=== PATIENT | male | born 1980 | race Caucasian/White ===

== ENCOUNTER 2016-11-08 14:54 | Inpatient (IN) | payer OTHER ==
[2016-11-08] MEDS ORDERED: MORPHINE SULFATE 8 MG/ML INJ ONE (15:03)
[2016-11-08] MEDS ORDERED: ONDANSETRON HCL 4 MG/2 ML VIAL ONE (15:03)
[2016-11-08 15:05] VITALS: O2SAT 100
--- NOTE | 2016-11-08 15:11 | PD ---
HPI Chief Complaint: fall Time Seen by Provider: 15:04 Travel History International Travel<30 days: No Contact w/Intl Traveler<30days: No History of Present Illness HPI This is a patient in his 30s who presents to the emergency department having fallen off of a ladder about 5 or 6 feet tall, landing on his buttock area also hitting his head, reporting severe pain in the low back, constant, moderate severity, with associated weakness and numbness in his right lower extremity. He is unable to move his right leg. Pt. also reportedly had a seizure en route with paramedics that was generalized tonic-clonic and lasted for half a minute and subsided without any intervention. He was post-ictal for about 3 minutes and then improved. Pt. does acknowledge some pain in his lower abdomen as well. PFSH Past Medical History Narrative Medical otherwise healthy had one seizure over 11 years ago, not on any seizure medications takes a medication for diet Social History Alcohol Use: No Tobacco Use: No Substance Use: No Allergies-Medications (Allergen,Severity, Reaction): Coded Allergies: No Known Allergies (Unverified , 11/08/16) Review of Systems Except as stated in HPI: all other systems reviewed are Neg Physical Exam Narrative GENERAL: SKIN: Warm and dry. HEAD: Atraumatic. Normocephalic. EYES: Pupils equal and round. No scleral icterus. No injection or drainage. ENT: No nasal bleeding or discharge. Mucous membranes pink and moist. NECK: Cervical spine is immobilized. CARDIOVASCULAR: Tachycardic. 2+ bilateral d.p. pulses. RESPIRATORY: No accessory muscle use. Clear to auscultation. Breath sounds equal bilaterally. GASTROINTESTINAL: Abdomen soft, tender to palpation in the lower abdomen with no rebound/guarding. MUSCULOSKELETAL: No obvious deformities. NEUROLOGICAL: Awake and alert. No obvious cranial nerve deficits. Complete weakness in the right lower extremity with poor sensation to light touch starting at the groin down. PSYCHIATRIC: Appropriate mood and affect; insight and judgment normal. Data Data Last Documented VS Vital Signs Date Time Temp Pulse Resp B/P (MAP) Pulse Ox O2 Delivery O2 Flow Rate FiO2 11/08/16 15:05 100 21 Orders Orders Morphine Inj (Morphine Inj) (11/08/16 15:03) Ondansetron Inj (Zofran Inj) (11/08/16 15:03) I-Stat Profile (11/08/16 15:04) I-Stat Creatinine (11/08/16 15:04) Complete Blood Count With Diff (11/08/16 15:04) Prothrombin Time / Inr (Pt) (11/08/16 15:04) Act Partial Throm Time (Ptt) (11/08/16 15:04) Type And Screen (11/08/16 15:04) Alcohol (Ethanol) (11/08/16 15:04) Chest, Single Ap (11/08/16 15:04) Pelvis, Ap Only (Routine) (11/08/16 15:04) Ct Brain W/O Iv Contrast(Rout) (11/08/16 15:04) Ct Cerv Spine W/O Contrast (11/08/16 15:04) Ct Abd/Pel W Iv Contrast(Rout) (11/08/16 15:04) Ct Thorax/ Chest W Iv Contrast (11/08/16 15:04) Ct Thor Spine W/O Contrast (11/08/16 15:04) Ct Lumb Spine W/O Contrast (11/08/16 15:04) Iv Access Insert/Monitor (11/08/16 15:04) Ecg Monitoring (11/08/16 15:04) Oximetry (11/08/16 15:04) Oxygen Administration (11/08/16 15:04) Admit To Inpatient (11/08/16 ) Code Status (11/08/16 15:29) Vital Signs (Adult) Q4H (11/08/16 15:29) Activity Bed Rest (11/08/16 15:29) Intake + Output GEOVANNA.QSHIFT (11/08/16 15:29) Inpatient Certification (11/08/16 ) Levetiracetam Inj (Keppra Inj) (11/08/16 21:00) Enoxaparin Inj (Lovenox Inj) (11/08/16 16:00) Consult Orthopedic (11/08/16 ) Consult Neurology (11/08/16 ) (Hub Use Only)In Phy Cons/Ref (11/08/16 ) Admit Order (Ed Use Only) (11/08/16 15:40) (Hub Use Only)In Phy Cons/Ref (11/08/16 ) Labs Laboratory Tests Test 11/08/16 14:55 White Blood Count 8.0 TH/MM3 Red Blood Count 4.68 MIL/MM3 Hemoglobin 13.5 GM/DL Bedside Hemoglobin 13.6 G/DL Hematocrit 40.1 % Bedside Hematocrit 40.0 % Mean Corpuscular Volume 85.6 FL Mean Corpuscular Hemoglobin 28.8 PG Mean Corpuscular Hemoglobin Concent 33.7 % Red Cell Distribution Width 12.9 % Platelet Count 334 TH/MM3 Mean Platelet Volume 8.3 FL Neutrophils (%) (Auto) 72.4 % Lymphocytes (%) (Auto) 21.3 % Monocytes (%) (Auto) 5.4 % Eosinophils (%) (Auto) 0.2 % Basophils (%) (Auto) 0.7 % Neutrophils # (Auto) 5.8 TH/MM3 Lymphocytes # (Auto) 1.7 TH/MM3 Monocytes # (Auto) 0.4 TH/MM3 Eosinophils # (Auto) 0.0 TH/MM3 Basophils # (Auto) 0.1 TH/MM3 CBC Comment DIFF FINAL Differential Comment Prothrombin Time 12.3 SEC Prothromb Time International Ratio 1.1 RATIO Activated Partial Thromboplast Time 25.4 SEC Bedside Sodium 140 MMOL/L Bedside Potassium 4.4 MMOL/L Bedside Chloride 102 MMOL/L Bedside Blood Urea Nitrogen 11 MG/DL Bedside Creatinine 0.9 MG/DL Bedside Glucose 110 MG/DL Ethyl Alcohol Level LESS THAN 3 MG/DL [facility] Medical Screen Exam Complete: Yes Emergency Medical Condition: Yes Interpretation(s) mild tachycardia, normotensive no leukocytosis electrolytes reassuring Last 24 hours Impressions Thoracic Spine CT 11/08/16 1504 Signed Impressions: Service Date/Time: Tuesday, November 08, 2016 15:11 - CONCLUSION: 1. Minimal degenerative changes in the mid and lower dorsal spine with small marginal spurs. 2. No fracture. Spinal canal is patent throughout. 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 No fracture is identified. Omid Kincaid MD Lumbar Spine CT 11/08/16 1504 Signed Impressions: Service Date/Time: Tuesday, November 08, 2016 15:11 - CONCLUSION: No acute lumbar spine abnormality is identified. Omid Kincaid MD Head CT 11/08/16 1504 Signed Impressions: Service Date/Time: Tuesday, November 08, 2016 15:03 - CONCLUSION: Negative for acute traumatic injury. Tyrel Mcelroy MD FACR Chest X-Ray 11/08/16 1504 Signed Impressions: Service Date/Time: Tuesday, November 08, 2016 14:47 - CONCLUSION: No acute finding is identified. Omid Kincaid MD Chest CT 11/08/16 1504 Signed Impressions: Service Date/Time: Tuesday, November 08, 2016 15:11 - CONCLUSION: Negative for acute traumatic injury.. Tyrel Mcelroy MD FACR Cervical Spine CT 11/08/16 1504 Signed Impressions: Service Date/Time: Tuesday, November 08, 2016 15:03 - CONCLUSION: No acute cervical spine abnormality is identified. 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 Correlation suggested Negative for acute traumatic injury. Tyrel Mcelroy MD FACR Differential Diagnosis Thoracic vertebral fracture, lumbar vertebral fracture, intracranial hemorrhage , cervical spine fracture Narrative Course This is a patient who was brought in as a trauma alert who presents with paralysis of his right lower extremity following falling off a ladder. He has a normal vascular exam. He reportedly also had a seizure in route. Patient was placed on a monitor and an IV was established. He is found to be slightly tachycardic. He had pubic symphysis diastases on the pelvic x-ray and a pelvic binder was placed. Patient was transported to CT scan. All CT imaging was reassuring. Patient will be admitted in the setting of his seizure and his continued neurologic deficit. Trauma Alert - Level One Trauma Alert Level One: Full trauma team activate, Patient evaluated, Trauma surgeon summoned Time Surgeon Summoned: 14:30 (Surgeon asked to come in) Diagnosis Diagnosis: Primary Impression: Weakness Admitting Physician Requests: Admit Janet Jack MD Nov 08, 2016 15:11
[2016-11-08 15:13] LABS: I-STAT POTASSIUM 4.4 MMOL/L (3.5-4.9); I-STAT SODIUM 140 MMOL/L (138-146)
[2016-11-08 15:15] LABS: AUTOMATED NEUTROPHIL # 5.8 TH/MM3 (1.8-7.7); BASOPHIL # 0.1 TH/MM3 (0-0.2); BASOPHIL % 0.7 % (0.0-2.0); EOSINOPHIL % 0.2 % (0.0-4.0); HEMATOCRIT 40.1 % (39.0-51.0); HEMO FLAGS DIFF FINAL; LYMPH % 21.3 % (9.0-44.0); LYMPHOCYTE # 1.7 TH/MM3 (1.0-4.8); MEAN CELL VOLUME 85.6 FL (80.0-100.0); MEAN CORPUSCULAR HEMOGLOBIN 28.8 PG (27.0-34.0); MEAN CORPUSCULAR HGB CONC 33.7 % (32.0-36.0); MONO % 5.4 % (0.0-8.0); NEUT % 72.4 % (16.0-70.0); PLATELET COUNT 334 TH/MM3 (150-450); RED BLOOD COUNT 4.68 MIL/MM3 (4.50-5.90); RED CELL DISTRIBUTION WIDTH 12.9 % (11.6-17.2)
--- NOTE | 2016-11-08 15:22 | RADRPT ---
EXAM DATE/TIME: 11/08/2016 14:47 [facility] COMPARISON: No previous studies available for comparison. INDICATIONS : Trauma alert, fell from ladder, numbness in right lower extremity, unable to move right lower extremi ty, seizure MEDICAL HISTORY : None. SURGICAL HISTORY : device in right pelvis ENCOUNTER: Initial ACUITY: 1 day PAIN SCORE: 6/10 LOCATION: Bilateral pelvis FINDINGS: Single AP view the pelvis performed on trauma backboard demonstrates abnormal widening of the pubic s ymphysis with pubic bones by 2.5 cm. Sacroiliac joints demonstrate no acute finding. A righ t-sided implant similar devices present with lead tip overlying the left sacrum. No concerning radiop aque foreign body is seen. 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 No fracture is identified. Omid Kincaid MD on November 08, 2016 at 15:19 Board Certified Radiologist. This report was verified electronically.
--- NOTE | 2016-11-08 15:23 | RADRPT ---
EXAM DATE/TIME: 11/08/2016 14:47 [facility] COMPARISON: No previous studies available for comparison. INDICATIONS : Fell from ladder, numbness in right lower extremity, seizure, trauma alert MEDICAL HISTORY : None. SURGICAL HISTORY : device in pelvis ENCOUNTER: Initial ACUITY: 1 day PAIN SCORE: 0/10 LOCATION: Bilateral chest FINDINGS: Portable AP view of the chest performed on a trauma backboard demonstrates a normal-sized cardiac davina houette. No effusion, consolidation, or pneumothorax is visualized. The bones and soft tissues demons trate no acute abnormality. CONCLUSION: No acute finding is identified. Omid Kincaid MD on November 08, 2016 at 15:20 Board Certified Radiologist. This report was verified electronically.
--- NOTE | 2016-11-08 15:23 | RADRPT ---
EXAM DATE/TIME: 11/08/2016 15:03 [facility] COMPARISON: No previous studies available for comparison. INDICATIONS : Trauma fell from ladder. RADIATION DOSE: 69.50 CTDIvol (mGy) MEDICAL HISTORY : None SURGICAL HISTORY : None. ENCOUNTER: Initial ACUITY: 1 day PAIN SCALE: 8/10 LOCATION: cranial TECHNIQUE: Multiple contiguous axial images were obtained of the head. Using automated exposure control and adj ustment of the mA and/or kV according to patient size, radiation dose was kept as low as reasonably a chievable to obtain optimal diagnostic quality images. DICOM format image data is available electro nically for review and comparison. FINDINGS: CEREBRUM: The ventricles are normal for age. No evidence of midline shift, mass lesion, hemorrhage or acute in farction. No extra-axial fluid collections are seen. POSTERIOR FOSSA: The cerebellum and brainstem are intact. The 4th ventricle is midline. The cerebellopontine angle i s unremarkable. EXTRACRANIAL: The visualized portion of the orbits is intact. SKULL: The calvaria is intact. No evidence of skull fracture. CONCLUSION: Negative for acute traumatic injury. Tyrel Mcelroy MD FACR on November 08, 2016 at 15:21 Board Certified Radiologist. This report was verified electronically.
[2016-11-08 15:26] LABS: APTT (PATIENT) 25.4 SEC (24.3-30.1); INTERNATIONAL NORMALIZED RATIO 1.1 RATIO; PROTHROMBIN TIME - PATIENT 12.3 SEC (9.8-11.6)
--- NOTE | 2016-11-08 15:33 | RADRPT ---
EXAM DATE/TIME: 11/08/2016 15:03 [facility] COMPARISON: No previous studies available for comparison. INDICATIONS : Trauma fell from ladder RADIATION DOSE: 43.61 CTDIvol (mGy) MEDICAL HISTORY : None SURGICAL HISTORY : None. ENCOUNTER: Initial ACUITY: 1 day PAIN SCALE: 8/10 LOCATION: neck TECHNIQUE: Volumetric scanning of the cervical spine was performed. Multiplanar reconstructions in the sagittal, coronal and oblique axial planes were performed. Using automated exposure control and adjustment o f the mA and/or kV according to patient size, radiation dose was kept as low as reasonably achievable to obtain optimal diagnostic quality images. DICOM format image data is available electronically f or review and comparison. FINDINGS: There is normal sagittal spine alignment of the cervical spine. No anterolisthesis or retrolisthesis is present. The atlantoaxial relationship is within normal limits. There is no prevertebral soft tiss ue swelling present. No fracture or dislocation is identified. No disc herniation is visualized in th e upper cervical spine. The visualized portions of the posterior fossa, paraspinous soft tissues, and upper lung zones demons trate no acute abnormality. CONCLUSION: No acute cervical spine abnormality is identified. Omid Kincaid MD on November 08, 2016 at 15:27 Board Certified Radiologist. This report was verified electronically.
--- NOTE | 2016-11-08 15:40 | RADRPT ---
EXAM DATE/TIME: 11/08/2016 15:11 [facility] COMPARISON: No previous studies available for comparison. INDICATIONS : Trauma fell off ladder. IV CONTRAST: 96 cc Omnipaque 350 (iohexol) IV ; Cumulative dose for multiple exams. ORAL CONTRAST: No oral contrast ingested. RADIATION DOSE: 9.96 CTDIvol (mGy) ; Combined studies - Thorax/Abdomen/Pelvis MEDICAL HISTORY : Bladder trouble SURGICAL HISTORY : Bladder ENCOUNTER: Initial ACUITY: 1 day PAIN SCALE: 8/10 LOCATION: Abdomen TECHNIQUE: Volumetric scanning of the abdomen and pelvis was performed. Using automated exposure control and ad justment of the mA and/or kV according to patient size, radiation dose was kept as low as reasonably achievable to obtain optimal diagnostic quality images. DICOM format image data is available electro nically for review and comparison. FINDINGS: LOWER LUNGS: The visualized lower lungs are clear. LIVER: Homogeneous density without lesion. There is no dilation of the biliary tree. No calcified gallston es. SPLEEN: Normal size without lesion. PANCREAS: Within normal limits. ADRENAL GLANDS: Within normal limits. RIGHT KIDNEY: Normal in size and shape. There is no mass, stone, or hydronephrosis. LEFT KIDNEY: Normal in size and shape. There is no mass, stone, or hydronephrosis.. VASCULAR: There is no aortic aneurysm. BOWEL/MESENTERY: The stomach, small bowel, and colon demonstrate no acute abnormality. There is no free intraperitone al air or fluid. RETROPERITONEUM: There is no lymphadenopathy. PELVIC CONTENTS: Bladder, are unremarkable ABDOMINAL WALL: Within normal limits. INGUINAL: There is no lymphadenopathy or hernia. MUSCULOSKELETAL: Minimal diastases is present of the pubic symphysis the pelvic stimulator in place. No other fractur es are appreciated. 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 Correlation suggested Negative for acute traumatic injury. Tyrel Mcelroy MD FACR on November 08, 2016 at 15:37 Board Certified Radiologist. This report was verified electronically.
[2016-11-08 15:48] LABS: ALCOHOL LESS THAN 3 MG/DL (0-5)
--- NOTE | 2016-11-08 15:51 | RADRPT ---
EXAM DATE/TIME: 11/08/2016 15:11 [facility] COMPARISON: No previous studies available for comparison. INDICATIONS : Trauma alert. Fell off ladder IV CONTRAST: 96 cc Omnipaque 350 (iohexol) IV ; Cumulative dose for multiple exams. RADIATION DOSE: 9.96 CTDIvol (mGy) MEDICAL HISTORY : Bladder trouble SURGICAL HISTORY : Bladder surgery ENCOUNTER: Initial ACUITY: 1 day PAIN SCALE: 8/10 LOCATION: chest TECHNIQUE: Volumetric scanning of the chest was performed. Using automated exposure control and adjustment of t he mA and/or kV according to patient size, radiation dose was kept as low as reasonably achievable to obtain optimal diagnostic quality images. DICOM format image data is available electronically for review and comparison. Follow-up recommendations for detected pulmonary nodules are based at a minimum on nodule size and pa tient risk factors according to Fleischner Society Guidelines. FINDINGS: LUNGS: The lungs are clear. MEDIASTINUM: There is no axillary or mediastinal adenopathy appreciated. Great vessels are intact. There is no p ericardial effusion. MUSCULOSKELETAL: Within normal limits for patient age. MISCELLANEOUS: The visualized upper abdominal organs demonstrate no acute abnormality. CONCLUSION: Negative for acute traumatic injury.. Tyrel Mcelroy MD FACR on November 08, 2016 at 15:43 Board Certified Radiologist. This report was verified electronically. the lungs are clear.
--- NOTE | 2016-11-08 16:00 | RADRPT ---
EXAM DATE/TIME: 11/08/2016 15:11 [facility] COMPARISON: No previous studies available for comparison. INDICATIONS : Trauma alert, fall from ladder today. RADIATION DOSE: ; Reconstructed from previous dataset, no dose MEDICAL HISTORY : Non-responsive. SURGICAL HISTORY : Non-responsive. ENCOUNTER: Initial ACUITY: 1 day PAIN SCALE: Non-responsive LOCATION: Bilateral lower back TECHNIQUE: Volumetric scanning of the lumbar spine was performed. Multiplanar reconstructions in the sagittal, coronal and oblique axial planes were performed. Using automated exposure control and adjustment of the mA and/or kV according to patient size, radiation dose was kept as low as reasonably achievable t o obtain optimal diagnostic quality images. DICOM format image data is available electronically for review and comparison. FINDINGS: VERTEBRAE: Normal vertebral body height. No fracture is identified. ALIGNMENT: There is no anterolisthesis or retrolisthesis. T12-L1: No disc herniation, canal stenosis, or neural foraminal stenosis. L1-L2: No disc herniation, canal stenosis, or neural foraminal stenosis. L2-L3: No disc herniation, canal stenosis, or neural foraminal stenosis. L3-L4: No disc herniation, canal stenosis, or neural foraminal stenosis. L4-L5: No disc herniation, canal stenosis, or neural foraminal stenosis. L5-S1: No disc herniation, canal stenosis, or neural foraminal stenosis. CONCLUSION: No acute lumbar spine abnormality is identified. Omid Kincaid MD on November 08, 2016 at 15:54 Board Certified Radiologist. This report was verified electronically.
[2016-11-08] MEDS ORDERED: IOHEXOL 350 MG/ML 10 ML VIAL (for RAD DIAG) IVCONTRAST ONE (16:01)
--- NOTE | 2016-11-08 16:14 | RADRPT ---
EXAM DATE/TIME: 11/08/2016 15:11 [facility] COMPARISON: No previous studies available for comparison. INDICATIONS : Trauma fell off ladder no feeling left leg. RADIATION DOSE: 0 CTDIvol (mGy) ; Reconstructed from previous dataset, no dose MEDICAL HISTORY : Bladder SURGICAL HISTORY : Bladder surgery ENCOUNTER: Initial ACUITY: 1 day PAIN SCALE: 8/10 LOCATION: t-spine TECHNIQUE: Volumetric scanning of the thoracic spine was performed. Multiplanar reconstructions in the sagittal , coronal and oblique axial planes were performed. Using automated exposure control and adjustment o f the mA and/or kV according to patient size, radiation dose was kept as low as reasonably achievable to obtain optimal diagnostic quality images. DICOM format image data is available electronically f or review and comparison. FINDINGS: Sagittal and coronal reconstructions show mild multilevel degenerative disc disease with small margin al spurs in the mid and lower dorsal levels. Vertebral body heights are maintained without fracture o r listhesis. Very mild wedge configuration of T12 is chronic. Spinal canal is widely patent. Detailed axial images as follows: T1-T2: Normal. T2-T3: The thecal sac has a normal diameter. No evidence of disc bulge or protrusion. T3-T4: The thecal sac has a normal diameter. No evidence of disc bulge or protrusion. T4-T5: The thecal sac has a normal diameter. No evidence of disc bulge or protrusion. T5-T6: The thecal sac has a normal diameter. No evidence of disc bulge or protrusion. T6-T7: The thecal sac has a normal diameter. No evidence of disc bulge or protrusion. T7-T8: The thecal sac has a normal diameter. No evidence of disc bulge or protrusion. T8-T9: The thecal sac has a normal diameter. No evidence of disc bulge or protrusion. T9-T10: The thecal sac has a normal diameter. No evidence of disc bulge or protrusion. T10-T11: The thecal sac has a normal diameter. No evidence of disc bulge or protrusion. T11-T12: The thecal sac has a normal diameter. No evidence of disc bulge or protrusion. T12-L1: The thecal sac has a normal diameter. No evidence of disc bulge or protrusion. CONCLUSION: 1. Minimal degenerative changes in the mid and lower dorsal spine with small marginal spurs. 2. No fracture. Spinal canal is patent throughout. Jason Phillips MD on November 08, 2016 at 15:57 Board Certified Radiologist. This report was verified electronically.
--- NOTE | 2016-11-08 16:55 | MH ---
cc: MARY ALONSO MD DATE OF ADMISSION 11/08/[address] Alonso / trauma surgery ADMISSION DIAGNOSIS Fall from the height, difficulty moving right leg. HISTORY OF THE PRESENT ILLNESS This 34-year-old male was admitted through emergency apartment priority one trauma alert after falling off a ladder about 6 feet, landing on his buttock and smacking his head. The patient states that he has pain in the lower back and weakness of the right leg. He is unable to move his right leg. Apparently on the scene the patient had a tonic clonic seizure for about a minute. The patient was a very short time postictal. And now he is normal. He says he remembers the seizure. PAST MEDICAL HISTORY Is that of: 1. 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 2. One seizure about 10 years ago and never again. SOCIAL HISTORY Does not smoke, does not drink. 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 PHYSICAL EXAMINATION GENERAL: Reveals a 34-year-old male. HEENT: Normocephalic. No trauma to the head. Pupils equally reactive. Extraocular muscles intact. No hemotympanum. No Us sign or raccoon's eyes. NECK: Supple. Bilateral carotid pulses. No signs of trauma to the neck. The C-collar has been removed. CHEST: Bilateral breath sounds. No signs of trauma to the chest. CARDIOVASCULAR: Regular rhythm. Hemodynamically the patient is stable. ABDOMEN: Soft. Active bowel sounds. No rebound or guarding. No masses. PELVIS: The pelvis is stable. The patient has no signs of trauma to the pelvic rim. EXTREMITIES: The patient has bilateral femoral, popliteal, dorsalis pedis, posterior tibial pulses. Bilateral brachial, radial and ulnar pulses. He has no deformities in any of his extremities. BACK: The patient is log-rolled to the back. There are no signs of trauma to the back although the patient is tender over the lower back. NEUROLOGIC: Vanessa coma scale is 15. The patient is awake, alert, oriented. He remembers the seizure which is somewhat unusual. Normal activity in the upper extremities. Lower extremities the patient says he is unable to move his right leg, although he is moving the toes and the foot. Initially he stated there was no sensation the right leg, however when I questioned that more closely the patient says he can feel me touch him but somewhat less. I am not sure what to make out of this right now. The bilateral patellar reflexes are normal. No pathologic reflexes. IMPRESSION Patient with a fall on his buttocks states he cannot move his right leg. The patient has no discernible injuries on a CT scan. The patient will be admitted, observed, placed on Keppra. Neurology is consulted for the same. On the CT scan the patient stasis pubis but I do not see this being related to this accident in any anyway. Nonetheless, I will have orthopedics render their opinion. Mary MEDRANO /4:21 PM /4:36 PM
[2016-11-08 17:13] VITALS: BP 136/74; PULSE 93; RESP 18; O2SAT 97
[2016-11-08 17:14] VITALS: O2SAT 97
[2016-11-08] MEDS ORDERED: ACETAMINOPHEN 325 MG TAB PO PRN (17:45)
[2016-11-08] MEDS ORDERED: ONDANSETRON HCL 4 MG/2 ML VIAL IV PRN (17:45)
[2016-11-08] MEDS ORDERED: SODIUM CHLORIDE 0.9% FLUSH 10 ML FLUSH IV FLUSH PRN (17:45)
[2016-11-08] MEDS ORDERED: ENALAPRILAT 1.25 MG/ML VIAL IV PRN (17:45)
[2016-11-08] MEDS ORDERED: LACTULOSE SYRUP 20 GM/30 ML CUP PO PRN (17:45)
[2016-11-08] MEDS: DEXAMETHASONE SOD PHOS 4 MG/ML VIAL IV PUSH SCH (17:54)
[2016-11-08] MEDS: ENOXAPARIN SODIUM 40 MG/0.4 ML SYRINGE SQ SCH (17:54)
[2016-11-08] MEDS: ACETAMINOPHEN/HYDROcodone 325 MG/5 MG TAB PO PRN (18:03)
[2016-11-08 20:00] VITALS: BP 120/55; PULSE 69; RESP 18; TEMP 98.1; O2SAT 97
[2016-11-08] MEDS ORDERED: levETIRAcetam INJ 500 MG in SODIUM CHLORIDE 0.9% INJ 100 ML IV SCH (21:00)
[2016-11-08] MEDS: FAMOTIDINE 20 MG TAB PO SCH (21:04)
[2016-11-08] MEDS: DOCUSATE SODIUM 50 MG/SENNA 8.6 MG TAB PO SCH (21:04)
[2016-11-08] MEDS: levETIRAcetam 500 MG TAB PO SCH (21:04)
--- NOTE | 2016-11-08 22:26 | MB ---
cc: CHICHI BULL M.D. DATE OF CONSULTATION 11/08/16 REASON FOR CONSULTATION Seizure, right leg weakness. HISTORY OF PRESENT ILLNESS This is a patient who states he was at work on a ladder earlier today, fell backwards, striking the right side. He did strike his head as well. En route he had a generalized seizure in the ambulance. States he did have a seizure about 11 years ago but none since. He felt weak in his right leg and numbness but does report that it has been improving in strength. Denies weakness of the arms or left leg. He does have back pain. PAST MEDICAL HISTORY History of InterStim implant for neurogenic bladder of unknown cause. History of isolated seizure 10 or 11 years ago. History of head trauma in high school playing soccer. MEDICATIONS None presently. NEUROLOGIC EXAMINATION NEURO: Higher cortical functions are normal. Cranial nerves intact. Motor exam he has normal strength and tone of all groups in the upper extremities and the left leg. He is weak at the right iliopsoas 3/5, right quads 3/5, right hamstring 3/5, right 3/5, right gastrocnemius 3/5. Reflexes are 2+ symmetric. He has no Babinski sign present. Sensory exam is diminished in the right leg diffusely. IMAGING STUDIES CT of the brain is normal. CT cervical spine within normal limits. CT of the thoracic spine is also within normal limits. CT lumbar spine is normal as well. CT brain normal. LABORATORY DATA White count 8000, hemoglobin 13.5, hematocrit is 40%, platelet count 334,000. The PT 12.3, INR 1.1, APTT 25.4. Sodium is 140, potassium 4.4, chloride 102, BUN 11, creatinine 0.9, glucose 110. Tox screen, alcohol less 3. IMPRESSION 1. Underwent seizure, probably related to head trauma. 2. Right leg weakness. Suspect this might have been a lumbosacral plexus injury. There is no sign of any spinal cord pathology. RECOMMENDATIONS Will start the patient on low-dose steroids for the right leg weakness. He does seem to be improving at the present time. If he does not continue to improve consider myelogram, unable to MRI because of the bladder stimulator. Start the patient on Keppra for seizures. Also, obtain an EEG. MD MARCIAL Campbell /4:52 PM /10:14 PM
[2016-11-09] VITALS: BP 126/57; PULSE 67; RESP 18; TEMP 98; O2SAT 96
[2016-11-09] MEDS: DEXAMETHASONE SOD PHOS 4 MG/ML VIAL IV PUSH SCH ×4 (00:28→17:39)
[2016-11-09 04:00] VITALS: BP 119/64; PULSE 71; RESP 18; TEMP 97.6; O2SAT 99
[2016-11-09] MEDS: ENOXAPARIN SODIUM 40 MG/0.4 ML SYRINGE SQ SCH ×2 (05:18→15:32)
[2016-11-09] MEDS: ACETAMINOPHEN/HYDROcodone 325 MG/5 MG TAB PO PRN ×4 (05:25→19:47)
--- NOTE | 2016-11-09 06:51 | PD.ORT.PN ---
Subjective Subjective Remarks This patient had a fall off a ladder yesterday. He complains of right-sided hip , back, and leg pain. His pain is improving today. Objective Vitals Vital Signs Date Time Temp Pulse Resp B/P (MAP) Pulse Ox O2 Delivery O2 Flow Rate FiO2 11/09/16 00:00 98.0 67 18 126/57 (80) 96 11/08/16 20:00 98.1 69 18 120/55 (76) 97 11/08/16 19:16 11/08/16 17:14 97 Room Air 11/08/16 17:14 97 Room Air 11/08/16 17:13 93 18 136/74 (94) 97 Room Air 11/08/16 15:05 100 21 Result Diagram: 11/08/16 1455 Other Results Laboratory Tests Test 11/08/16 14:55 Prothromb Time International Ratio 1.1 RATIO Prothrombin Time 12.3 SEC (9.8-11.6) Imaging Last 24 hours Impressions Thoracic Spine CT 11/08/16 1504 Signed Impressions: Service Date/Time: Tuesday, November 08, 2016 15:11 - CONCLUSION: 1. Minimal degenerative changes in the mid and lower dorsal spine with small marginal spurs. 2. No fracture. Spinal canal is patent throughout. Jsaon Phillips MD Pelvis X-Ray 11/08/16 1504 Signed Impressions: Service Date/Time: Tuesday, November 08, 2016 14:47 - CONCLUSION: Diastases of the pubic symphysis with pubic bones by 2.5 cm. No fracture is identified. Omid Kincaid MD Lumbar Spine CT 11/08/16 1504 Signed Impressions: Service Date/Time: Tuesday, November 08, 2016 15:11 - CONCLUSION: No acute lumbar spine abnormality is identified. Omid Kincaid MD Head CT 11/08/16 1504 Signed Impressions: Service Date/Time: Tuesday, November 08, 2016 15:03 - CONCLUSION: Negative for acute traumatic injury. Tyrel Mcelroy MD FACR Chest X-Ray 11/08/16 1504 Signed Impressions: Service Date/Time: Tuesday, November 08, 2016 14:47 - CONCLUSION: No acute finding is identified. Omid Kincaid MD Chest CT 11/08/16 1504 Signed Impressions: Service Date/Time: Tuesday, November 08, 2016 15:11 - CONCLUSION: Negative for acute traumatic injury.. Tyrel Mcelroy MD FACR Cervical Spine CT 11/08/16 1504 Signed Impressions: Service Date/Time: Tuesday, November 08, 2016 15:03 - CONCLUSION: No acute cervical spine abnormality is identified. 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 Correlation suggested Negative for acute traumatic injury. Tyrel Mcelroy MD FACR Objective Remarks Examination of pelvis reveals tenderness to palpation over the pubic symphysis. He has minimal pain with hip, knee, or ankle motion. He is also tender over the gluteus muscles laterally. Assessment & Plan Assessment and Plan X-rays reveal approximately 23 mm of widening of the pubic symphysis. This may be treated nonoperatively. We'll have him work with physical therapy. He may weight-bear as tolerated. We'll check repeat x-rays after physical therapy. If the symphysis widens further, he will need surgery. Julio Cesar Olivares MD Nov 09, 2016 06:51
[2016-11-09 08:00] VITALS: BP 123/72; PULSE 60; RESP 16; TEMP 97.5; O2SAT 100
[2016-11-09 10:41] LABS: AUTOMATED NEUTROPHIL # 6.4 TH/MM3 (1.8-7.7); BASOPHIL % 0.1 % (0.0-2.0); HEMATOCRIT 41.2 % (39.0-51.0); HEMO FLAGS DIFF FINAL; LYMPH % 6.9 % (9.0-44.0); LYMPHOCYTE # 0.5 TH/MM3 (1.0-4.8); MEAN CELL VOLUME 86.7 FL (80.0-100.0); MEAN CORPUSCULAR HEMOGLOBIN 29.1 PG (27.0-34.0); MEAN CORPUSCULAR HGB CONC 33.6 % (32.0-36.0); PLATELET COUNT 284 TH/MM3 (150-450); RED BLOOD COUNT 4.76 MIL/MM3 (4.50-5.90); RED CELL DISTRIBUTION WIDTH 12.5 % (11.6-17.2)
--- NOTE | 2016-11-09 10:53 | HHI.PR ---
Subjective Subjective Notes Complains of pubic pain but does not like taking pain medication Objective Vitals/I&O Vital Signs Date Time Temp Pulse Resp B/P (MAP) Pulse Ox O2 Delivery O2 Flow Rate FiO2 11/09/16 08:00 97.5 60 16 123/72 (89) 100 11/08/16 17:14 Room Air 11/08/16 15:05 21 Labs Laboratory Tests Test 11/08/16 14:55 11/09/16 10:04 White Blood Count 8.0 Red Blood Count 4.68 Hemoglobin 13.5 Bedside Hemoglobin 13.6 Hematocrit 40.1 Bedside Hematocrit 40.0 Mean Corpuscular Volume 85.6 Mean Corpuscular Hemoglobin 28.8 Mean Corpuscular Hemoglobin Concent 33.7 Red Cell Distribution Width 12.9 Platelet Count 334 Mean Platelet Volume 8.3 Neutrophils (%) (Auto) 72.4 Lymphocytes (%) (Auto) 21.3 Monocytes (%) (Auto) 5.4 Eosinophils (%) (Auto) 0.2 Basophils (%) (Auto) 0.7 Neutrophils # (Auto) 5.8 Lymphocytes # (Auto) 1.7 Monocytes # (Auto) 0.4 Eosinophils # (Auto) 0.0 Basophils # (Auto) 0.1 CBC Comment DIFF FINAL Differential Comment Prothrombin Time 12.3 Prothromb Time International Ratio 1.1 Activated Partial Thromboplast Time 25.4 Bedside Sodium 140 Bedside Potassium 4.4 Bedside Chloride 102 Bedside Blood Urea Nitrogen 11 Bedside Creatinine 0.9 Bedside Glucose 110 Ethyl Alcohol Level LESS THAN 3 Radiology Last Impressions Thoracic Spine CT 11/08/16 1504 Signed Impressions: Service Date/Time: Tuesday, November 08, 2016 15:11 - CONCLUSION: 1. Minimal degenerative changes in the mid and lower dorsal spine with small marginal spurs. 2. No fracture. Spinal canal is patent throughout. 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 No fracture is identified. Omid Kincaid MD Lumbar Spine CT 11/08/16 1504 Signed Impressions: Service Date/Time: Tuesday, November 08, 2016 15:11 - CONCLUSION: No acute lumbar spine abnormality is identified. Omid Kincaid MD Head CT 11/08/16 1504 Signed Impressions: Service Date/Time: Tuesday, November 08, 2016 15:03 - CONCLUSION: Negative for acute traumatic injury. Tyrel Mcelroy MD FACR Chest X-Ray 11/08/16 1504 Signed Impressions: Service Date/Time: Tuesday, November 08, 2016 14:47 - CONCLUSION: No acute finding is identified. Omid Kincaid MD Chest CT 11/08/16 1504 Signed Impressions: Service Date/Time: Tuesday, November 08, 2016 15:11 - CONCLUSION: Negative for acute traumatic injury.. Tyrel Mcelroy MD FACR Cervical Spine CT 11/08/16 1504 Signed Impressions: Service Date/Time: Tuesday, November 08, 2016 15:03 - CONCLUSION: No acute cervical spine abnormality is identified. 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 Correlation suggested Negative for acute traumatic injury. Tyrel Mcelroy MD FACR Narrative Exam GENERAL:Adult well-nourished, well developed male sitting at the side of the bed. SKIN: Warm and dry. HEAD: Atraumatic. Normocephalic. ENT: No nasal bleeding or discharge. Mucous membranes pink and moist. NECK: Trachea midline. No JVD. CARDIOVASCULAR: Regular rate and rhythm. RESPIRATORY: No accessory muscle use. Lungs clear to auscultation. Breath sounds equal bilaterally. GASTROINTESTINAL: Abdomen soft, non-tender, nondistended. + BS. MUSCULOSKELETAL: Extremities without cyanosis, or edema. Pain with palpation over pubic bone. MAEW. NEUROLOGICAL: Awake and alert. Normal speech. A/P Assessment and Plan [place]: Fell approximately 5-6 ft off a ladder landing on his buttocks and striking his head. ? LOC. Unable to move his leg. Tonic-clonic seizure while en route to hospital. INJURIES: Diastases pubic symphysis Concussion Diet: Regular Pulm: IS Pain: Pearce, Tylenol Activity: OOB. PT and OT ordered (WBAT) GI: Pepcid Bowel: Carli-colace, Lactulose PRN. LBM 0 DVT: SCDs, Lovenox 40 BID Diastases pubic symphysis Orthopedics consulted Weightbearing as tolerated X-rays post OOB to assess for further pubic symphysis widening and possible need for surgical intervention Pain control PT evaluating Lovenox Concussion with seizure Neurologist consulted Seizure precautions EEG pending [facility] for seizure prophylaxis Neuro checks Avoid second head injury Postconcussive education Plan of care discussed with patient and at bedside. Case management consulted to assist with discharge planning. Plan to discharge in 1-2 days when patient ambulating safely. Remington Melton Nov 09, 2016 10:53
[2016-11-09 10:54] LABS: ALT (GPT) 18 U/L (12-78); ANION GAP 7 MEQ/L (5-15); AST (GOT) 6 U/L (15-37); BLOOD UREA NITROGEN 13 MG/DL (7-18); CHLORIDE 108 MEQ/L (98-107); GLOMERULAR FILTRATION RATE 88 ML/MIN (>89); POTASSIUM 3.8 MEQ/L (3.5-5.1); SODIUM (NA) 137 MEQ/L (136-145)
[2016-11-09 10:56] LABS: ALKALINE PHOSPHATASE 62 U/L (45-117); TOTAL BILIRUBIN ADULT 0.8 MG/DL (0.2-1.0)
[2016-11-09] MEDS: FAMOTIDINE 20 MG TAB PO SCH ×2 (11:21→19:47)
[2016-11-09] MEDS: levETIRAcetam 500 MG TAB PO SCH ×2 (11:21→19:47)
[2016-11-09] MEDS: DOCUSATE SODIUM 50 MG/SENNA 8.6 MG TAB PO SCH ×2 (11:23→19:47)
[2016-11-09 12:00] VITALS: BP 127/66; PULSE 80; RESP 20; TEMP 98.8; O2SAT 97
--- NOTE | 2016-11-09 12:32 | PD.HHIRCNE ---
Patient History Record/History Review Reason for Referral: The patient is a 28 year old right handed male status post traumatic injury due to a fall from a six foot ladder on 11/08/2016. Reportedly, the patient fell from the ladder landing on his buttocks, and was noted to have a seizure lasting one minute with post-ictal phenomena. Please note that he did have a prior seizure as a child. His GCS was [address] was reported as normal. He does report RLE weakness. Medical reports are concerned that he suffered a concussion from the fall, and hence he is referred for baseline neurobehavioral status examination per trauma protocol to assess cognitive, behavioral and emotional aspects of the injury and to provide treatment recommendations. Neuropsych Precautions: To be determined. Past Surgical/Medical History Major surgery in last 100 days: No Medication Active Medications Acetaminophen (Tylenol) 650 mg Q4H PRN PO; Start 11/08/16 at 17:45 Acetaminophen/ Hydrocodone Bitart ([place] 5-325 Mg) 1 tab Q4H PRN PO Last administered on 11/09/16 11:22; Admin Dose 1 TAB; Start 11/08/16 at 17:45 Dexamethasone Sodium Phosphate (Decadron Inj) 4 mg Q6HR IV PUSH Last administered on 11/09/16 11:23; Admin Dose 4 MG; Start 11/08/16 at 18:00 Enalaprilat (Vasotec Inj) 1.25 mg Q8H PRN IV; Start 11/08/16 at 17:45 Enoxaparin Sodium (Lovenox Inj) 40 mg Q12H SQ Last administered on 11/09/16 05: 18; Admin Dose 40 MG; Start 11/08/16 at 16:00 Famotidine (Pepcid) 20 mg Q12HR PO Last administered on 11/09/16 11:21; Admin Dose 20 MG; Start 11/08/16 at 21:00 Iohexol (Omnipaque 350 Inj) 96 ml STK-MED ONCE IVCONTRAST Last administered on 16:01; Admin Dose 96 ML; Start 11/08/16 at 16:01; Stop 11/08/16 at 16: 02; Status DC Lactulose (Lactulose Liq) 30 ml DAILY PRN PO; Start 11/08/16 at 17:45 Levetriacetam (Keppra) 500 mg Q12HR PO Last administered on 11/09/16 11:21; Admin Dose 500 MG; Start 11/08/16 at 21:00 Levetriacetam 500 mg/Sodium Chloride 105 ml @ 420 mls/hr Q12HR IV; Start at 21:00; Stop 11/08/16 at 21:00; Status DC Lorazepam (Ativan Inj) 1 mg Q4H PRN IV PUSH; Start 11/08/16 at 17:00 Morphine Sulfate (Morphine Inj) 8 mg STK-MED ONCE .ROUTE Last administered on 17:53; Admin Dose 8 MG; Start 11/08/16 at 15:03; Stop 11/08/16 at 15:04 ; Status DC Ondansetron HCl (Zofran Inj) 4 mg Q6H PRN IV; Start 11/08/16 at 17:45 Ondansetron HCl (Zofran Inj) 4 mg STK-MED ONCE .ROUTE; Start 11/08/16 at 15:03; Stop 11/08/16 at 15:04; Status DC Senna/Docusate Sodium (Carli-Colace) 1 tab BID PO Last administered on 11/09/16 11:23; Admin Dose 1 TAB; Start 11/08/16 at 21:00 Sodium Chloride (NS Flush) 2 ml UNSCH PRN IV FLUSH; Start 11/08/16 at 17:45 Mental Status Assessment Orientation: oriented to Self, oriented to Place, oriented to Time, oriented to Situation Mental Status: WFL: Thought processing, Language/Interactions, Attention, Learning/Memory, Problem-Solving Observation The patient is alert and oriented to person, place, time and circumstances surrounding the reason for hospitalization. To assist in the diagnosis and treatment of possible concussion, the Sports Concussion Assessment Tool-5 (SCAT5 ) was administered to the patient by this neuropsychologist. The following results were obtained.~ This patients Vanessa Coma Scale score at the time of todays evaluation is 15 (4E, 5V, 6M).~ Neuroimaging results were negative for intracranial abnormality.~ The patient endorsed 8 of 22 symptoms of concussion, with a symptom severity score of 18 of 132.~ The patient obtained an Orientation score of 5 out of 5.~ The patient obtained a Concentration score of 2 out of 4.~ The patient earned a score of 15 out of 15 on the Immediate Memory subtest of the SCAT5.~ The patients Neurological Screen was deferred given their medical condition.~ The patients Balance Examination was deferred given their medical condition.~ On Delayed Recall of the word list, the patient earned a score of 4 out of 5.~ Based on [facility] clinical evaluation which included the administration of the SCAT5, it is this clinicians judgment that this patient DID sustain a concussion related to their recent injury with clinical indicators including symptom report and concentration difficulties.~ However please note that the diagnosis of concussion is a clinical judgment, made by a medical professional.~ The assessment tool utilized in diagnosis, SCAT5, should not be used by itself to make or exclude, the diagnosis of concussion.~ A patient may have a concussion even if their SCAT5 is normal. Impression Mild concussion diagnosis. Adjustment/Coping Assessment Adjustment/Coping: None: Depression, Anxiety, Pain, Apathy, Awareness, Insight Observation The patients thought content was free from suicidal, homicidal or paranoid ideation, and the patients thought processes were logical and goal-directed. The patients mood was anxious, and his affect was stable and appropriate. LTG Status: Deferred STG Status: Deferred Team Members: Neuropsychologist Behavior Assessment Agitation: None Treatment Engagement: Average Observation Behaviorally, the patient demonstrated no signs of agitation, impulsivity or disinhibition. There was no remarkable evidence of a formal thought disorder or psychosis. LTG - Status: Deferred STG Status: Deferred Team Members: Neuropsychologist Diagnosis/Discharge Plan Impression Neurobehavioral status examination results are consistent with a mild concussion given symptom report and concentration difficulties. Diagnosis: (1) Concussion with brief (less than one hour) loss of consciousness Status: Acute Maximizing acute care outcome It is recommended that the patient be monitored for emergent concussion symptoms as the medical condition evolves. Discharge Planning Anticipated Problems Anticipated problems may include typical concussion sequelae and as such he may benefit from referral to concussion clinic offered by Dr. Jeramy Connor ). Treatment Plan Based on these results, your medical team recommends that the patient follow-up at the [facility] on discharge.~ For now, it is recommended that the patient limit physical activity to routine daily activities (avoid exercise , training, sports, etc.) and limit activities such as school, work and screen time to a level that does not worsen symptoms.~ It is also recommended that the patient avoid alcohol, prescription and non-prescription drugs without medical supervision (including sleeping tablets, aspirin, anti-inflammatory medications or stronger pain medications such as narcotics), and do not drive until cleared by a healthcare professional. Furthermore, if you notice any change in behavior , vomiting, worsening headache, double vision or excessive drowsiness, please telephone your doctor or the nearest hospital emergency department immediately. This clinician will continue to follow with you throughout the course of this patients rehabilitation treatment, and I will be available to meet with the patients family/support system to facilitate their understanding and the ongoing care of their family member. The goals of neuropsychological intervention shall be both educational and supportive to the family/support system as is deemed clinically appropriate. Discharge Needs Referral to [facility] ([phone]). Thank you Thank you for the opportunity to assist in this patients care. Noble Georges, Ph.D., ABPP Board Certified in Clinical Neuropsychology [place] [employer] Professional Psychology [place] Licensed Psychologist #[id number] Noble Georges PhD Nov 09, 2016 12:32 pm
--- NOTE | 2016-11-09 14:48 | MB ---
cc: MATTHEW DRISCOLL DATE OF CONSULTATION: 11/09/2016 REASON FOR CONSULTATION Pubic symphysis diastasis. HISTORY OF PRESENT ILLNESS This patient, known as Omid Salazar, also known as Can Howard, is a male who had a fall. He was working on a ladder at work. He lost his balance and fell backwards. He landed mostly on his right side. He had immediate right-sided low back, hip and leg pain. He describes a numbness of his right leg. He also described a weakness of his right leg. He presented to the emergency room. He was found to have pubic diastasis. He is currently awake and alert on the fifth floor. He complains of pelvic and right-sided hip and leg pain. Pain is worse with movement. He had a questionable seizure at the time of this fall. He also has a history of a weak bladder sphincter and has a bladder stimulator in place. PAST MEDICAL HISTORY ILLNESSES History of seizure approximately 10 years ago. MEDICATIONS None prior to hospitalization. Please see EMR for inpatient medications. SURGERY Bladder stimulator placement. ALLERGIES No known drug allergies. SOCIAL HISTORY The patient works for an [employer]. He denies alcohol, tobacco or drug use. FAMILY HISTORY Noncontributory. REVIEW OF SYSTEMS The patient denies headache, visual changes, neck pain, chest pain, shortness of breath, abdominal pain, nausea, vomiting or recent weight loss. He does have a history of difficulty with his bladder and has a bladder stimulator in place. He complains of right leg pain. He has some tingling in the right leg. PHYSICAL EXAMINATION GENERAL: The patient is a pleasant 34-year-old male in no acute distress. He is awake and alert. He is alert and oriented x3. VITAL SIGNS: Temperature 98.8, pulse 80, respirations 20, blood pressure 127/66. O2 sat is 97% on room air. HEAD: The patient is normocephalic, atraumatic. Pupils are equal. NECK: Soft, nontender. Trachea is midline. ABDOMEN: Soft, nontender, nondistended. He does have tenderness to palpation directly over the pubic symphysis. He has minimal tenderness over the sacroiliac joints. EXTREMITIES: Examination of bilateral upper extremities reveals no pain with shoulder, elbow or wrist motion. He has intact sensation in all fingers. He has good capillary refill in all fingers. Skin is intact. Guest Services Director strength is +5. Examination of left leg reveals no pain with hip, knee or ankle motion. Skin is intact. Dorsalis pedi is pulses palpable. Sensation is intact. Examination of right leg reveals minimal pain with gentle hip, knee or ankle motion. Dorsalis pedis pulse is palpable. Skin is intact. He has subjective diminished sensation of the right leg. He does have tenderness to palpation over the lateral aspect of his right hip and gluteus muscles. X-RAYS X-rays of the pelvis were reviewed. X-rays reveal mild pubic symphysis diastasis. There is approximately 23 mm of space between the pubic symphysis. IMPRESSION 1. Fall from ladder at work. 2. Pubic symphysis diastasis. 3. Possible seizure. PLAN The treatment options were discussed with the patient. I explained to him that currently his injury appears that it would be amenable to nonoperative treatment. I will have physical therapy work with him. He may weight bear as tolerated. I will perform repeat x-rays later today. If the pubic symphysis appears to widen further he will need surgical open reduction, internal fixation of the pubic symphysis. All questions were answered. The patient is in agreement with this plan. A mid-level provider in my office, nurse practitioner or PA, may see this patient on a follow-up basis and continue to implement the objective of this plan including: Starting or adjusting medications, injections of muscle, tendon, bursa or joints, cast application, orthotic or brace application, physical therapy, further radiographic studies including x-ray, MRI, CT, ultrasounds or bone scan, vascular studies, neurologic studies, or other specialist consultations, and proceeding with surgical management as appropriate. MD DEAN Mays/SHAHBAZ /2:01 PM /2:35 PM
[2016-11-09 16:00] VITALS: BP 130/68; PULSE 93; RESP 20; TEMP 97.2; O2SAT 97
--- NOTE | 2016-11-09 18:58 | RADRPT ---
EXAM DATE/TIME: 11/09/2016 18:21 [facility] COMPARISON: CT ABDOMEN & PELVIS W CONTRAST, November 08, 2016, 15:11. INDICATIONS : Pelvic pain post fall from ladder. MEDICAL HISTORY : Bladder SURGICAL HISTORY : Bladder surgery ENCOUNTER: Subsequent ACUITY: 2 days PAIN SCORE: 5/10 LOCATION: Bilateral pelvis FINDINGS: There is diastasis of the pubic symphysis. Degenerative changes are noted involving the hip joints b ilaterally. Pain stimulator lead overlies the sacrum. No acute fracture is confirmed with certainty . CONCLUSION: 1. Diastasis of the symphysis pubis. 2. Degenerative changes involving the hip joints bilaterally. Elias Ye MD on November 09, 2016 at 18:39 Board Certified Radiologist. This report was verified electronically.
--- NOTE | 2016-11-09 19:26 | MG ---
cc: SUKHI AARON M.D. Lab No: Date: 11/09/2016 Age: Sex: M Race: REQUESTING PHYSICIAN Dr. Gomez INTRODUCTION An EEG was obtained on this Omid Mitchell patient. The patient is awake and asleep following commands and on Keppra, Decadron and Edelstein. Hyperventilation was completed as well as photic stimulation. DESCRIPTION The EEG shows a mixture of some low amplitude beta rhythms diffusely with some alpha and also some mild amount of intermixed theta. The left hemisphere rhythms at times are questionably slower than right, along with some small sharp waves on the left more than right. Photic stimulation disclosed no significant change. Later on there is a deeper sleep, sleep stage II. At the very end there is awakening with near dominance by alpha activity. INTERPRETATION This EEG shows some questionable slower left hemisphere rhythms otherwise essentially normal awake and asleep EEG. Small sharp discharges / waves noted of no obvious clinical relevance. MD JOHN Ferrer/KK /6:25 PM /7:16 PM
[2016-11-09 20:00] VITALS: BP 112/58; PULSE 74; RESP 18; TEMP 97.9; O2SAT 95
[2016-11-10] VITALS (8 sets, daily range): BP systolic 101–126; BP diastolic 56–68; PULSE 58–86; RESP 17–18; TEMP 97.6–98.8; O2SAT 96–98
[2016-11-10] MEDS: DEXAMETHASONE SOD PHOS 4 MG/ML VIAL IV PUSH SCH ×4 (01:10→17:43)
[2016-11-10] MEDS: ACETAMINOPHEN/HYDROcodone 325 MG/5 MG TAB PO PRN ×3 (05:22→20:33)
[2016-11-10] MEDS: ENOXAPARIN SODIUM 40 MG/0.4 ML SYRINGE SQ SCH ×2 (05:26→17:43)
--- NOTE | 2016-11-10 06:55 | PD.ORT.PN ---
Subjective Subjective Remarks s/p trauma alert with pubic symphysis widening doing well. pain controlled. therapy went well yesterday Objective Vitals Vital Signs Date Time Temp Pulse Resp B/P (MAP) Pulse Ox O2 Delivery O2 Flow Rate FiO2 11/10/16 00:00 97.6 74 18 114/60 (78) 96 11/09/16 20:00 97.9 74 18 112/58 (76) 95 11/09/16 16:00 97.2 93 20 130/68 (88) 97 11/09/16 12:00 98.8 80 20 127/66 (86) 97 11/09/16 08:00 97.5 60 16 123/72 (89) 100 I/O 11/09/16 11/09/16 11/09/16 11/10/16 11/10/16 11/10/16 07:00 15:00 23:00 07:00 15:00 23:00 Intake Total 720 ml 825 ml Balance 720 ml 825 ml Intake Oral 720 ml 825 ml # Voids 6 # Bowel Movements 0 Result Diagram: 11/09/16 1004 11/09/16 1004 Imaging Last 24 hours Impressions Thoracic Spine CT 11/08/16 1504 Signed Impressions: Service Date/Time: Tuesday, November 08, 2016 15:11 - CONCLUSION: 1. Minimal degenerative changes in the mid and lower dorsal spine with small marginal spurs. 2. No fracture. Spinal canal is patent throughout. 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 No fracture is identified. Omid Kincaid MD Lumbar Spine CT 11/08/16 1504 Signed Impressions: Service Date/Time: Tuesday, November 08, 2016 15:11 - CONCLUSION: No acute lumbar spine abnormality is identified. Omid Kincaid MD Head CT 11/08/16 1504 Signed Impressions: Service Date/Time: Tuesday, November 08, 2016 15:03 - CONCLUSION: Negative for acute traumatic injury. Tyrel Mcelroy MD FACR Chest X-Ray 11/08/16 1504 Signed Impressions: Service Date/Time: Tuesday, November 08, 2016 14:47 - CONCLUSION: No acute finding is identified. Omid Kincaid MD Chest CT 11/08/16 1504 Signed Impressions: Service Date/Time: Tuesday, November 08, 2016 15:11 - CONCLUSION: Negative for acute traumatic injury.. Tyrel Mcelroy MD FACR Cervical Spine CT 11/08/16 1504 Signed Impressions: Service Date/Time: Tuesday, November 08, 2016 15:03 - CONCLUSION: No acute cervical spine abnormality is identified. 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 Correlation suggested Negative for acute traumatic injury. Tyrel Mcelroy MD FACR Objective Remarks Examination of pelvis reveals tenderness to palpation over the pubic symphysis. He has minimal pain with hip, knee, or ankle motion. He is also tender over the gluteus muscles laterally. Assessment & Plan Assessment and Plan 1) widening of pubic Symphysis -post therapy Xrays reveal no further widening of symphysis. maintaining position -will proceed with nonop treatment -WBAT BLE -CM for DC planning -ortho cleared for DC once ambulating safely -f/u with [facility] or [facility] in 2 weeks Rommel Pro Nov 10, 2016 06:55
[2016-11-10] MEDS: FAMOTIDINE 20 MG TAB PO SCH ×2 (10:00→20:32)
[2016-11-10] MEDS: DOCUSATE SODIUM 50 MG/SENNA 8.6 MG TAB PO SCH ×2 (10:00→20:32)
[2016-11-10] MEDS: levETIRAcetam 500 MG TAB PO SCH ×2 (10:00→20:32)
--- NOTE | 2016-11-10 10:05 | RADRPT ---
EXAM DATE/TIME: 11/10/2016 09:11 [facility] COMPARISON: CT ABDOMEN & PELVIS W CONTRAST, November 08, 2016, 15:11. PELVIS AP/INLET/OUTLET (3VWS), November 09, 2016, 18:21. PELVIS AP ONLY, November 08, 2016, 14:47. INDICATIONS : Post fall MEDICAL HISTORY : fell off of a ladder 11/08/16 SURGICAL HISTORY : has pump for bladder sphincter . ENCOUNTER: Initial ACUITY: 2 days PAIN SCORE: 8/10 LOCATION: Bilateral pelvis FINDINGS: Again seen is the diastases at the pubic symphysis, stable in interval. Stimulator is evident. Frac ture is not appreciated. CONCLUSION: Diastases symphysis pubis widened to 2.3 cm. Fracture is not appreciated. Compariso n with the old films would be of benefit. Tyrel Mcelroy MD FACR on November 10, 2016 at 9:56 Board Certified Radiologist. This report was verified electronically.
[2016-11-10] MEDS ORDERED: SENN1TAB PO (10:19)
[2016-11-10] MEDS ORDERED: HYDR-3516 PO (10:19)
[2016-11-10] MEDS ORDERED: LEVE500 PO (10:19)
--- NOTE | 2016-11-10 10:30 | HHI.DS ---
Discharge Summary Admission Date Nov 08, 2016 at 15:42 Discharge Date: Nov 10, 2016 Admitting Diagnosis leg weakness, seizure (1) Sprain of symphysis pubis ICD Codes: S33.8XXA - Sprain of other parts of lumbar spine and pelvis, initial encounter (2) Concussion with brief (less than one hour) loss of consciousness ICD Codes: S06.0X9A - Concussion with loss of consciousness of unspecified duration, initial encounter Status: Acute (3) Post traumatic seizure ICD Codes: R56.1 - Post traumatic seizures Brief History S/P Trauma: Fall CBC/BMP: 11/09/16 1004 11/09/16 1004 Significant Findings Laboratory Tests Test 11/08/16 14:55 11/09/16 10:04 Neutrophils (%) (Auto) 72.4 % (16.0-70.0) 92.0 % (16.0-70.0) Prothrombin Time 12.3 SEC (9.8-11.6) Bedside Glucose 110 MG/DL (60-95) Lymphocytes (%) (Auto) 6.9 % (9.0-44.0) Lymphocytes # (Auto) 0.5 TH/MM3 (1.0-4.8) Random Glucose 118 MG/DL (74-106) Aspartate Amino Transf (AST/SGOT) 6 U/L (15-37) Chloride Level 108 MEQ/L (98-107) Estimat Glomerular Filtration Rate 88 ML/MIN (>89) Imaging Last Impressions Pelvis X-Ray 11/10/16 0000 Signed Impressions: Service Date/Time: Thursday, November 10, 2016 09:11 - CONCLUSION: Diastases symphysis pubis widened to 2.3 cm. Fracture is not appreciated. Comparison with the old films would be of benefit. Tyrel Mcelroy MD FACR Thoracic Spine CT 11/08/16 1504 Signed Impressions: Service Date/Time: Tuesday, November 08, 2016 15:11 - CONCLUSION: 1. Minimal degenerative changes in the mid and lower dorsal spine with small marginal spurs. 2. No fracture. Spinal canal is patent throughout. Jason Phillips MD Lumbar Spine CT 11/08/16 1504 Signed Impressions: Service Date/Time: Tuesday, November 08, 2016 15:11 - CONCLUSION: No acute lumbar spine abnormality is identified. Omid Kincadi MD Head CT 11/08/16 1504 Signed Impressions: Service Date/Time: Tuesday, November 08, 2016 15:03 - CONCLUSION: Negative for acute traumatic injury. Tyrel Mcelroy MD FACR Chest X-Ray 11/08/16 1504 Signed Impressions: Service Date/Time: Tuesday, November 08, 2016 14:47 - CONCLUSION: No acute finding is identified. Omid Kincaid MD Chest CT 11/08/16 1504 Signed Impressions: Service Date/Time: Tuesday, November 08, 2016 15:11 - CONCLUSION: Negative for acute traumatic injury.. Tyrel Mcelroy MD FACR Cervical Spine CT 11/08/16 1504 Signed Impressions: Service Date/Time: Tuesday, November 08, 2016 15:03 - CONCLUSION: No acute cervical spine abnormality is identified. 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 Correlation suggested Negative for acute traumatic injury. Tyrel Mcelroy MD FACR PE at Discharge GENERAL:28 year old well-nourished, well developed male lying in bed. SKIN: Warm and dry. HEAD: Atraumatic. Normocephalic. ENT: No nasal bleeding or discharge. Mucous membranes pink and moist. NECK: Trachea midline. No JVD. CARDIOVASCULAR: Regular rate and rhythm. RESPIRATORY: No accessory muscle use. Lungs clear to auscultation. Breath sounds equal bilaterally. GASTROINTESTINAL: Abdomen soft, non-tender, nondistended. + BS. MUSCULOSKELETAL: Extremities without cyanosis, or edema. Pain with palpation over pubic bone. MAEW. NEUROLOGICAL: Awake and alert. Normal speech. Hospital Course SHISHMAREF IRA: Fell approximately 5-6 ft off a ladder landing on his buttocks and striking his head. ? LOC. Unable to move his leg. Tonic-clonic seizure while en route to hospital. INJURIES: Diastases pubic symphysis Concussion Diet: Regular, tolerating Pulm: IS Pain: [place], Tylenol. Pain controlled Activity: OOB. PT and OT ordered (WBAT) GI: Pepcid Bowel: Carli-colace, Lactulose PRN. LBM 0 DVT: SCDs, Lovenox 40 BID Diastases pubic symphysis Orthopedics consulted, F/U as outpatient Weightbearing as tolerated Post ambulation pelvic X-ray shows unchanged widening of pubic symphysis Patient fell this AM, X-ray obtained and unchanged- no fx Pain control PT evaluated- No home needs Concussion with seizure Neurologist consulted Seizure precautions EEG negative for seizures Continue Keppra Neuro checks Avoid second head injury Post-concussive education F/U with neurologist as outpatient F/U with PCP in 1 week Plan of care discussed with patient and at bedside. Clear for discharge home. Rolling walker ordered for safety. Pt Condition on Discharge: Stable Discharge Disposition: Discharge Home Discharge Instructions DIET: Follow Instructions for: As Tolerated, No Restrictions Activities you can perform: Full Weight Bearing Activities to Avoid: Concussion Sports, Strenuous Activity Remington Melton Nov 10, 2016 10:30
--- NOTE | 2016-11-10 12:07 | HHI.PR ---
Neuropsych Emotional Emotional: Intact: Emotional, Anxious/Fearful, Depressed/Sad, Hostile/Resentful , Irritable/Angry/Frustrate, Labile, Constricted/Blunted Behavior Behavior: Intact: Behavior, Coping/Acceptance, Cooperative w/ Treatment, Motivation, Frustration Tolerance/[place], Impulsive/Agitated, Suicidal/Homicidal Risk Cognitive Cognitive: Intact: Cognitive, Confused/Orientation, Insight/Awareness, Judgement/Problem-Solving, Memory, Mild: Attention/Concentration Psychosocial Psychosocial: Intact: Psychosocial, Family/Other Adjustment, Realistic Expectation, Self-Esteem/Confidence Progress Notes/Response to Tx Contents of Sessions: Adjustment Time with Patient: 15 minutes Premorbid psychological status Premorbid Cognitive, Emotional and Behavioral Status: Stable. The patient has high school education and a solid work history prior to this injury. The patient has no prior psychiatric difficulties, as described above. Substance abuse history is unremarkable. Behavioral Reactions of Patient and Family/Support System: Stable. The patient s family is experiencing ongoing issues of adjustment given the nature of the injury, and this aspect of recovery will require ongoing monitoring. Emotional/Behavioral Status of Patient and Family/Support System: Stable. Pertinent issues, if appropriate to this patients clinical care, are described in detail above. Maximizing acute care outcome It is recommended that the patient be monitored for emergent behavioral impulsivity as the medical condition evolves. This patients neuropathological challenges may limit their rehabilitation potential going forward, and these challenges will require specialized therapeutic skills to maximize outcome. Anticipated Problems Ongoing areas of concern will include behavioral impulsivity, lack of insight and judgment, which is expected to improve with time and treatment. Presently , the patient is alert, oriented and generally neurocognitively intact except for those issues identified in the neurobehavioral status exam. Treatment Plan This clinician will continue to follow with you throughout the course of this patients acute treatment, and I will be available to meet with the patients family/support system to facilitate their understanding and the ongoing care of their family member. The goals of neuropsychological intervention shall be both educational and supportive to the family/support system as is deemed clinically appropriate. [facility] Level: VII:Automatic-appropriate Impression Neurobehavioral status examination results are consistent with a mild concussion given symptom report and concentration difficulties. Diagnosis: (1) Concussion with brief (less than one hour) loss of consciousness Status: Acute Progress Note Narrative Ongoing follow-up of patient seen in his hospital room. This is day 2 post injury. He reported no new issues, and is doing well. I will continue to follow until his discharge. Noble Georges PhD Nov 10, 2016 12:07 pm
--- NOTE | 2016-11-10 17:49 | PD.CAR.PN ---
CVT Progress Note Subjective/Hospital Course: Patient is awake alert oriented Has no further new perceivable injuries. Patient was ambulating today with ease and slight limp. He is released and cleared for discharge from orthopedic point Today while he was in the bathroom trying to pull up his pain and he slipped and fell sideways from the sitting position at the toilet No perceivable injury from the same He is still somewhat tender over the pubis where there is diastasis but no different from 2 days ago. Patient was discharged and I discussed this with him in the presence of nurse practitioner this morning Later in the day patient apparently became disrespectful and the root to the staff and the nurses and refused to leave. He was complaining but more leg pain and I will have orthopedics reevaluate the patient for possible pubic diastases being the cause of his pain due to the positioning If orthopedics deems it necessary then patient can have pubic plating or if not , he'll be discharged tomorrow. Objective: Vital Signs Date Time Temp Pulse Resp B/P (MAP) Pulse Ox O2 Delivery O2 Flow Rate FiO2 11/10/16 17:13 98.6 69 18 112/61 (78) 96 11/10/16 12:00 98.8 86 18 118/64 (82) 97 11/10/16 10:10 98.0 74 17 119/67 (84) 98 11/10/16 08:45 97.7 84 18 126/68 (87) 98 11/10/16 08:00 98.0 62 18 104/59 (74) 98 11/10/16 04:00 98.0 58 18 101/56 (71) 97 11/10/16 00:00 97.6 74 18 114/60 (78) 96 11/09/16 20:00 97.9 74 18 112/58 (76) 95 Result Diagram: 11/09/16 1004 11/09/16 1004 Mary Razo MD Nov 10, 2016 17:49
[2016-11-11] MEDS: DEXAMETHASONE SOD PHOS 4 MG/ML VIAL IV PUSH SCH ×4 (00:46→17:18)
[2016-11-11] MEDS: ACETAMINOPHEN/HYDROcodone 325 MG/5 MG TAB PO PRN ×5 (00:47→22:37)
[2016-11-11 04:00] VITALS: BP 109/60; PULSE 58; RESP 18; TEMP 97.5; O2SAT 98
[2016-11-11] MEDS: ENOXAPARIN SODIUM 40 MG/0.4 ML SYRINGE SQ SCH (04:58)
--- NOTE | 2016-11-11 07:02 | PD.ORT.PN ---
Subjective Subjective Remarks s/p trauma alert with pubic symphysis widening states that had increased pain in pelvis yesterday when weight bearing. reports that can feel popping and clicking when flex hip and that he had a fall yesterday. Objective Vitals Vital Signs Date Time Temp Pulse Resp B/P (MAP) Pulse Ox O2 Delivery O2 Flow Rate FiO2 11/10/16 20:00 97.8 69 18 113/63 (80) 98 11/10/16 17:13 98.6 69 18 112/61 (78) 96 11/10/16 12:00 98.8 86 18 118/64 (82) 97 11/10/16 10:10 98.0 74 17 119/67 (84) 98 11/10/16 08:45 97.7 84 18 126/68 (87) 98 11/10/16 08:00 98.0 62 18 104/59 (74) 98 I/O 11/10/16 11/10/16 11/10/16 11/11/16 11/11/16 11/11/16 07:00 15:00 23:00 07:00 15:00 23:00 Output Total 1200 ml 100 ml Balance -1200 ml -100 ml Output Urine Total 1200 ml 100 ml # Voids 1 # Bowel Movements 1 Result Diagram: 11/09/16 1004 11/09/16 1004 Imaging Last 24 hours Impressions Thoracic Spine CT 11/08/16 1504 Signed Impressions: Service Date/Time: Tuesday, November 08, 2016 15:11 - CONCLUSION: 1. Minimal degenerative changes in the mid and lower dorsal spine with small marginal spurs. 2. No fracture. Spinal canal is patent throughout. 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 No fracture is identified. Omid Kincaid MD Lumbar Spine CT 11/08/16 1504 Signed Impressions: Service Date/Time: Tuesday, November 08, 2016 15:11 - CONCLUSION: No acute lumbar spine abnormality is identified. Omid Kincaid MD Head CT 11/08/16 1504 Signed Impressions: Service Date/Time: Tuesday, November 08, 2016 15:03 - CONCLUSION: Negative for acute traumatic injury. Tyrel Mcelroy MD FACR Chest X-Ray 11/08/16 1504 Signed Impressions: Service Date/Time: Tuesday, November 08, 2016 14:47 - CONCLUSION: No acute finding is identified. Omid Kincaid MD Chest CT 11/08/16 1504 Signed Impressions: Service Date/Time: Tuesday, November 08, 2016 15:11 - CONCLUSION: Negative for acute traumatic injury.. Tyrel Mcelroy MD FACR Cervical Spine CT 11/08/16 1504 Signed Impressions: Service Date/Time: Tuesday, November 08, 2016 15:03 - CONCLUSION: No acute cervical spine abnormality is identified. Oimd Kincaid MD Abdomen/Pelvis CT 11/08/16 1504 Signed Impressions: Service Date/Time: Tuesday, November 08, 2016 15:11 - CONCLUSION: Diastases pubic symphysis probably chronic. Correlation suggested Negative for acute traumatic injury. Tyrel Mcelroy MD FACR Objective Remarks Examination of pelvis reveals tenderness to palpation over the pubic symphysis. He has minimal pain with hip, knee, or ankle motion. He is also tender over the gluteus muscles laterally. Assessment & Plan Assessment and Plan 1) widening of pubic Symphysis -given patients increase in pain and perceived popping and clicking, I believe he will do better with surgical intervention. Have discussed with Dr Olivares and he agrees. -NPO after MN -sign consents -hold lovenox -surgery in AM Rommel Pro Nov 11, 2016 07:02
[2016-11-11 09:06] VITALS: BP 112/64; PULSE 55; RESP 18; TEMP 96.1; O2SAT 96
[2016-11-11] MEDS: DOCUSATE SODIUM 50 MG/SENNA 8.6 MG TAB PO SCH ×2 (09:50→22:36)
[2016-11-11] MEDS: FAMOTIDINE 20 MG TAB PO SCH ×2 (09:50→22:37)
[2016-11-11] MEDS: levETIRAcetam 500 MG TAB PO SCH ×2 (09:51→22:37)
--- NOTE | 2016-11-11 11:06 | HHI.PR ---
Subjective Subjective Notes PTD: 4 Patient sitting up in bed. Family at bedside. Patient complains of "sore" to his pelvic area. Patient agrees to call for assistance when getting out of bed to prevent falls. Objective Vitals/I&O Vital Signs Date Time Temp Pulse Resp B/P (MAP) Pulse Ox O2 Delivery O2 Flow Rate FiO2 11/11/16 09:06 96.1 55 18 112/64 (80) 96 11/08/16 17:14 Room Air 11/08/16 15:05 21 Labs Laboratory Tests Test 11/08/16 14:55 11/09/16 10:04 Bedside Hemoglobin 13.6 G/DL Bedside Hematocrit 40.0 % Prothrombin Time 12.3 SEC Prothromb Time International Ratio 1.1 RATIO Activated Partial Thromboplast Time 25.4 SEC Bedside Sodium 140 MMOL/L Bedside Potassium 4.4 MMOL/L Bedside Chloride 102 MMOL/L Bedside Blood Urea Nitrogen 11 MG/DL Bedside Creatinine 0.9 MG/DL Bedside Glucose 110 MG/DL Ethyl Alcohol Level LESS THAN 3 MG/DL White Blood Count 7.0 TH/MM3 Red Blood Count 4.76 MIL/MM3 Hemoglobin 13.8 GM/DL Hematocrit 41.2 % Mean Corpuscular Volume 86.7 FL Mean Corpuscular Hemoglobin 29.1 PG Mean Corpuscular Hemoglobin Concent 33.6 % Red Cell Distribution Width 12.5 % Platelet Count 284 TH/MM3 Mean Platelet Volume 8.2 FL Neutrophils (%) (Auto) 92.0 % Lymphocytes (%) (Auto) 6.9 % Monocytes (%) (Auto) 1.0 % Eosinophils (%) (Auto) 0.0 % Basophils (%) (Auto) 0.1 % Neutrophils # (Auto) 6.4 TH/MM3 Lymphocytes # (Auto) 0.5 TH/MM3 Monocytes # (Auto) 0.1 TH/MM3 Eosinophils # (Auto) 0.0 TH/MM3 Basophils # (Auto) 0.0 TH/MM3 CBC Comment DIFF FINAL Differential Comment Blood Urea Nitrogen 13 MG/DL Creatinine 0.76 MG/DL Random Glucose 118 MG/DL Total Protein 7.7 GM/DL Albumin 4.0 GM/DL Calcium Level 8.7 MG/DL Alkaline Phosphatase 62 U/L Aspartate Amino Transf (AST/SGOT) 6 U/L Alanine Aminotransferase (ALT/SGPT) 18 U/L Total Bilirubin 0.8 MG/DL Sodium Level 137 MEQ/L Potassium Level 3.8 MEQ/L Chloride Level 108 MEQ/L Carbon Dioxide Level 22.0 MEQ/L Anion Gap 7 MEQ/L Estimat Glomerular Filtration Rate 88 ML/MIN Radiology Last 48 hours Impressions Pelvis X-Ray 11/10/16 0000 Signed Impressions: Service Date/Time: Thursday, November 10, 2016 09:11 - CONCLUSION: Diastases symphysis pubis widened to 2.3 cm. Fracture is not appreciated. Comparison with the old films would be of benefit. Tyrel Mcelroy MD FACR Pelvis X-Ray 11/09/16 1800 Signed Impressions: Service Date/Time: Wednesday, November 09, 2016 18:21 - CONCLUSION: 1. Diastasis of the symphysis pubis. 2. Degenerative changes involving the hip joints bilaterally. Elias Ye MD Narrative Exam GENERAL: This is a 28-year-old male lying in bed. No distress noted. SKIN: Warm and dry. HEAD: Atraumatic. Normocephalic. EYES: PERRLA ENT: No nasal bleeding or discharge. Mucous membranes pink and moist. NECK: Trachea midline. No JVD. CARDIOVASCULAR: Regular rate and rhythm. RESPIRATORY: No accessory muscle use. Lungs are clear to auscultation. Breath sounds equal bilaterally. No distress or dyspnea. GASTROINTESTINAL: BS + x 4 quads. Abdomen soft, non-tender, nondistended. MUSCULOSKELETAL: Extremities without cyanosis, or edema. + peripheral pulses x 4 extremities. Warm with good capillary refill and sensation. MAEW. NEUROLOGICAL: Awake and alert. Normal speech and pattern. A/P Problem List: (1) Sprain of symphysis pubis ICD Codes: S33.8XXA - Sprain of other parts of lumbar spine and pelvis, initial encounter Status: Acute (2) Concussion with brief (less than one hour) loss of consciousness ICD Codes: S06.0X9A - Concussion with loss of consciousness of unspecified duration, initial encounter Status: Acute (3) Post traumatic seizure ICD Codes: R56.1 - Post traumatic seizures Status: Acute Assessment and Plan [place]: This is a 28-year-old male who sustained a fall. He fell approximately 5-6 feet off a ladder landing on his buttocks and striking his head. He was unable to move his leg. Tonic-clonic seizure while en route to the hospital. INJURIES: Concussion Diastasis of the pubic symphysis Procedures: 11/12: Plan for OR with orthopedics Consults: Orthopedics. Neurology. Neuropsych. Case management. Diet: Regular diet. Tolerating po diet. Encourage good po intake with each meal. Pulmonary: Encourage good pulmonary toileting. IS at bedside and pt encouraged to use. Rationale for use explained to patient, and verbalized understanding. PAIN Management: [place] 5 mg every 4 hours. Tylenol PRN. Activity: OOB. PT and OT ordered. (WBAT bilat LE) GI prophylaxis: Pepcid BID. Bowel regimen: Carli-colace and MOM. Lactulose. LBM: 0 DVT prophylaxis: Mechanical VTE with SCDs. Chemical management with Lovenox 40 QD SQ. DC Planning: Case management consulted for assistance with final discharge disposition. Emotional support provided to patient and family at bedside and plan of care discussed. Discussed with RN at bedside. Patient is hemodynamically stable and being managed on the med/surg floor. The trauma team will round each day, and evaluate plan of care on a daily basis. Concussion Diastasis of the pubic symphysis Orthopedics consulted and assisting in management and care 11/12: Plan for surgery with orthopedics Due to increased pain and patient complaint of "clicking" Pain management Encourage out of bed - call for assistance PT and OT ordered. WBAT DVT prophylaxis Seizure precautions Keppra 500 BID Status post in-hospital fall Problem Qualifiers (1) Sprain of symphysis pubis: Qualified Codes: S33.8XXA - Sprain of other parts of lumbar spine and pelvis, initial encounter Shelley Frey Nov 11, 2016 10:21
--- NOTE | 2016-11-11 11:11 | HHI.PR ---
Neuropsych Emotional Emotional: Intact: Emotional, Anxious/Fearful, Depressed/Sad, Hostile/Resentful , Irritable/Angry/Frustrate, Labile, Constricted/Blunted Behavior Behavior: Intact: Behavior, Coping/Acceptance, Cooperative w/ Treatment, Motivation, Frustration Tolerance/[place], Impulsive/Agitated, Suicidal/Homicidal Risk Cognitive Cognitive: Intact: Cognitive, Attention/Concentration, Confused/Orientation, Insight/Awareness, Judgement/Problem-Solving, Memory Psychosocial Psychosocial: Intact: Psychosocial, Family/Other Adjustment, Realistic Expectation, Self-Esteem/Confidence Progress Notes/Response to Tx Contents of Sessions: Adjustment Time with Patient: 15 minutes Premorbid psychological status Premorbid Cognitive, Emotional and Behavioral Status: Stable. The patient has high school education and a solid work history prior to this injury. The patient has no prior psychiatric difficulties, as described above. Substance abuse history is unremarkable. Behavioral Reactions of Patient and Family/Support System: Stable. The patient s family is experiencing ongoing issues of adjustment given the nature of the injury, and this aspect of recovery will require ongoing monitoring. Emotional/Behavioral Status of Patient and Family/Support System: Stable. Pertinent issues, if appropriate to this patients clinical care, are described in detail above. Maximizing acute care outcome It is recommended that the patient be monitored for emergent behavioral impulsivity as the medical condition evolves. This patients neuropathological challenges may limit their rehabilitation potential going forward, and these challenges will require specialized therapeutic skills to maximize outcome. Anticipated Problems Ongoing areas of concern will include behavioral impulsivity, lack of insight and judgment, which is expected to improve with time and treatment. Presently , the patient is alert, oriented and generally neurocognitively intact except for those issues identified in the neurobehavioral status exam. Treatment Plan This clinician will continue to follow with you throughout the course of this patients acute treatment, and I will be available to meet with the patients family/support system to facilitate their understanding and the ongoing care of their family member. The goals of neuropsychological intervention shall be both educational and supportive to the family/support system as is deemed clinically appropriate. [facility] Level: VII:Automatic-appropriate Impression Neurobehavioral status examination results are consistent with a mild concussion given symptom report and concentration difficulties. Diagnosis: (1) Concussion with brief (less than one hour) loss of consciousness Status: Acute Progress Note Narrative Ongoing follow-up of patient seen during daily trauma rounds. This is day 3 post injury. The patient voiced no complaints. His cognition is relatively at baseline. He is at [place] at least. I will continue to follow. Noble Georges PhD Nov 11, 2016 11:10 am
[2016-11-11] MEDS: LACTULOSE SYRUP 20 GM/30 ML CUP PO SCH (12:00)
[2016-11-11 12:08] VITALS: BP 112/62; PULSE 66; RESP 17; TEMP 97; O2SAT 96
[2016-11-11] MEDS ORDERED: chlorproMAZINE HCL 25 MG TAB PO ONE (14:00)
[2016-11-11 16:39] VITALS: BP 109/64; PULSE 61; RESP 16; TEMP 97.5; O2SAT 97
[2016-11-11 20:30] VITALS: BP 121/65; PULSE 65; RESP 17; TEMP 97.9; O2SAT 66
[2016-11-11] MEDS: MAGNESIUM HYDROXIDE SUSP 30 ML CUP PO SCH (21:00)
[2016-11-12] MEDS: DEXAMETHASONE SOD PHOS 4 MG/ML VIAL IV PUSH SCH ×4 (00:27→21:12)
[2016-11-12 01:06] VITALS: BP 110/57; PULSE 53; RESP 17; TEMP 97.1; O2SAT 95
[2016-11-12 05:40] VITALS: BP 102/58; PULSE 68; RESP 16; TEMP 97.9; O2SAT 98
--- NOTE | 2016-11-12 06:47 | PD.ORT.PN ---
Subjective Subjective Remarks s/p trauma alert with pubic symphysis widening doing well. no changes. Objective Vitals Vital Signs Date Time Temp Pulse Resp B/P (MAP) Pulse Ox O2 Delivery O2 Flow Rate FiO2 11/12/16 05:40 97.9 68 16 102/58 (73) 98 11/12/16 01:06 97.1 53 17 110/57 (74) 95 11/11/16 20:30 97.9 65 17 121/65 (83) 66 11/11/16 16:39 97.5 61 16 109/64 (79) 97 11/11/16 12:08 97.0 66 17 112/62 (79) 96 11/11/16 10:51 17 11/11/16 09:06 96.1 55 18 112/64 (80) 96 I/O 11/11/16 11/11/16 11/11/16 11/12/16 11/12/16 11/12/16 07:00 15:00 23:00 07:00 15:00 23:00 Intake Total 240 ml Output Total 100 ml 1100 ml Balance -100 ml -860 ml Intake Oral 240 ml Output Urine Total 100 ml 1100 ml # Voids 6 2 # Bowel Movements 2 2 Result Diagram: 11/09/16 1004 11/09/16 1004 Imaging Last 24 hours Impressions Thoracic Spine CT 11/08/16 1504 Signed Impressions: Service Date/Time: Tuesday, November 08, 2016 15:11 - CONCLUSION: 1. Minimal degenerative changes in the mid and lower dorsal spine with small marginal spurs. 2. No fracture. Spinal canal is patent throughout. 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 No fracture is identified. Omid Kincaid MD Lumbar Spine CT 11/08/16 1504 Signed Impressions: Service Date/Time: Tuesday, November 08, 2016 15:11 - CONCLUSION: No acute lumbar spine abnormality is identified. Omid Kincaid MD Head CT 11/08/16 1504 Signed Impressions: Service Date/Time: Tuesday, November 08, 2016 15:03 - CONCLUSION: Negative for acute traumatic injury. Tyrel Mcelroy MD FACR Chest X-Ray 11/08/16 1504 Signed Impressions: Service Date/Time: Tuesday, November 08, 2016 14:47 - CONCLUSION: No acute finding is identified. Omid Kincaid MD Chest CT 11/08/16 1504 Signed Impressions: Service Date/Time: Tuesday, November 08, 2016 15:11 - CONCLUSION: Negative for acute traumatic injury.. Tyrel Mcelroy MD FACR Cervical Spine CT 11/08/16 1504 Signed Impressions: Service Date/Time: Tuesday, November 08, 2016 15:03 - CONCLUSION: No acute cervical spine abnormality is identified. 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 Correlation suggested Negative for acute traumatic injury. Tyrel Mcelroy MD FACR Objective Remarks Examination of pelvis reveals tenderness to palpation over the pubic symphysis. He has minimal pain with hip, knee, or ankle motion. He is also tender over the gluteus muscles laterally. Assessment & Plan Assessment and Plan 1) widening of pubic Symphysis -surgery this AM Rommel Pro Nov 12, 2016 06:47
[2016-11-12 06:54] LABS: HEMATOCRIT 41.3 % (39.0-51.0); MEAN CELL VOLUME 85.4 FL (80.0-100.0); MEAN CORPUSCULAR HEMOGLOBIN 29.1 PG (27.0-34.0); PLATELET COUNT 302 TH/MM3 (150-450); RED BLOOD COUNT 4.83 MIL/MM3 (4.50-5.90); RED CELL DISTRIBUTION WIDTH 12.5 % (11.6-17.2); REVIEW FLAG FINAL; WHITE BLOOD COUNT 10.8 TH/MM3 (4.0-11.0)
[2016-11-12] MEDS: ACETAMINOPHEN/HYDROcodone 325 MG/5 MG TAB PO PRN (06:54)
[2016-11-12 07:22] LABS: BICARBONATE 28.4 MEQ/L (21.0-32.0); POTASSIUM 3.6 MEQ/L (3.5-5.1)
[2016-11-12 08:21] VITALS: BP 117/74; PULSE 53; RESP 22; TEMP 98; O2SAT 100
[2016-11-12] MEDS: FAMOTIDINE 20 MG TAB PO SCH ×2 (08:56→21:12)
[2016-11-12] MEDS: LACTULOSE SYRUP 20 GM/30 ML CUP PO SCH (08:56)
[2016-11-12] MEDS: levETIRAcetam 500 MG TAB PO SCH ×2 (08:56→21:12)
[2016-11-12] MEDS: DOCUSATE SODIUM 50 MG/SENNA 8.6 MG TAB PO SCH ×2 (08:57→21:10)
[2016-11-12] MEDS ORDERED: SODIUM CHLOR 0.9% 250 ML INJ 250 ML ONE (09:24)
[2016-11-12] MEDS ORDERED: ceFAZolin 2 GM PREMIX 50 ML ONE (09:24)
[2016-11-12] MEDS ORDERED: GENTAMICIN SULFATE 80 MG/2 ML VIAL ONE (09:24)
[2016-11-12] MEDS ORDERED: VANCOMYCIN HCL 1000 MG VIAL ONE (09:24)
[2016-11-12] MEDS ORDERED: TRANEXAMIC ACID INJ 1,450 MG in SODIUM CHLORIDE 0.9% INJ 100 ML IV SCH ×2 (09:30→10:50)
--- NOTE | 2016-11-12 09:33 | HHI.PR ---
Subjective Subjective Notes PTD: 4 0900: In OR 1030: In OR 1145: In OR 1250: In OR Objective Vitals/I&O Vital Signs Date Time Temp Pulse Resp B/P (MAP) Pulse Ox O2 Delivery O2 Flow Rate FiO2 11/12/16 08:21 98.0 53 22 117/74 (88) 100 11/08/16 17:14 Room Air 11/08/16 15:05 21 Labs Laboratory Tests Test 11/12/16 06:12 White Blood Count 10.8 Red Blood Count 4.83 Hemoglobin 14.0 Hematocrit 41.3 Mean Corpuscular Volume 85.4 Mean Corpuscular Hemoglobin 29.1 Mean Corpuscular Hemoglobin Concent 34.0 Red Cell Distribution Width 12.5 Platelet Count 302 Mean Platelet Volume 8.6 Blood Urea Nitrogen 17 Creatinine 0.77 Random Glucose 106 Calcium Level 9.1 Sodium Level 139 Potassium Level 3.6 Chloride Level 105 Carbon Dioxide Level 28.4 Anion Gap 6 Estimat Glomerular Filtration Rate 114 Radiology Last 48 hours Impressions Pelvis X-Ray 11/10/16 0000 Signed Impressions: Service Date/Time: Thursday, November 10, 2016 09:11 - CONCLUSION: Diastases symphysis pubis widened to 2.3 cm. Fracture is not appreciated. Comparison with the old films would be of benefit. Tyrel Mcelroy MD FACR Pelvis X-Ray 11/09/16 1800 Signed Impressions: Service Date/Time: Wednesday, November 09, 2016 18:21 - CONCLUSION: 1. Diastasis of the symphysis pubis. 2. Degenerative changes involving the hip joints bilaterally. Elias Ye MD Narrative Exam In OR A/P Problem List: (1) Sprain of symphysis pubis ICD Codes: S33.8XXA - Sprain of other parts of lumbar spine and pelvis, initial encounter Status: Acute (2) Concussion with brief (less than one hour) loss of consciousness ICD Codes: S06.0X9A - Concussion with loss of consciousness of unspecified duration, initial encounter Status: Acute (3) Post traumatic seizure ICD Codes: R56.1 - Post traumatic seizures Status: Acute Assessment and Plan ALUTIIQ: This is a 28-year-old male who sustained a fall. He fell approximately 5-6 feet off a ladder landing on his buttocks and striking his head. He was unable to move his leg. Tonic-clonic seizure while en route to the hospital. INJURIES: Concussion Diastasis of the pubic symphysis Procedures: 11/12: ORIF pubic symphysis Consults: Orthopedics. Neurology. Neuropsych. Case management. Diet: Regular diet. Tolerating po diet. Encourage good po intake with each meal. Pulmonary: Encourage good pulmonary toileting. IS at bedside and pt encouraged to use. Rationale for use explained to patient, and verbalized understanding. PAIN Management: [place] 5 mg every 4 hours. Tylenol PRN. Activity: OOB. PT and OT ordered. (50% WB bilat LE) Wheelchair training. GI prophylaxis: Pepcid BID. Bowel regimen: Carli-colace BID. MOM. Lactulose. LBM: 11/12 DVT prophylaxis: Mechanical VTE with SCDs. Chemical management with Lovenox 40 QD SQ. DC Planning: Case management consulted for assistance with final discharge disposition. Emotional support provided to patient and family at bedside and plan of care discussed. Discussed with RN at bedside. Patient is hemodynamically stable and being managed on the med/surg floor. The trauma team will round each day, and evaluate plan of care on a daily basis. Concussion Diastasis of the pubic symphysis Orthopedics consulted and assisting in management and care 11/12: ORIF pubic symphysis Due to increased pain and patient complaint of "clicking" Pain management Encourage out of bed - call for assistance PT and OT ordered. 50 % WB BLE Wheelchair training DVT prophylaxis Seizure precautions Keppra 500 BID Status post in-hospital fall Problem Qualifiers (1) Sprain of symphysis pubis: Qualified Codes: S33.8XXA - Sprain of other parts of lumbar spine and pelvis, initial encounter Shelley Frey Nov 12, 2016 09:33
[2016-11-12] MEDS ORDERED: WALKER/ADULT/FO1 MIS (10:17)
[2016-11-12] MEDS ORDERED: XARE10TA PO (10:17)
[2016-11-12] MEDS ORDERED: HYDR-3580 PO (10:17)
--- NOTE | 2016-11-12 11:44 | PD.OP ---
cc: Julio Cesar Perez MD Operative Report Date of Surgery: Nov 12, 2016 Preoperative Diagnosis: Pubic symphysis diastasis Postoperative Diagnosis: Procedure: Open reduction internal fixation pubic symphysis Anesthesia: Gen. Surgeon: Julio Cesar Perez Corporate Coordinator(s): MARGOT Reyna PA-C The surgical procedure was assisted by my physician occupational therapist assistants. My P.A. presence was necessary throughout this case for the manipulation and positioning of the surgical extremity. My P.A. was assisting me throughout the duration of this procedure. The skill set of a physician occupational therapist assistants was medically necessary to complete this procedure. During the surgical case the oil burner technician was working at the back table and the physician occupational therapist assistants was directly assisting me. Operation and Findings: Patient was seen and evaluated preoperatively. Can was found to have pubic symphysis diastases. Initial plan was for nonoperative treatment. Patient was developing severe pain and popping around his pubic symphysis. He wished to proceed with surgery. Informed consent was obtained after detailed discussion of risk and benefits of surgery. The operative site was marked. Patient was brought to the OR and placed on the OR table. IV sedation and general endotracheal anesthesia were administered. The pelvic region was prepped with alcohol followed by Hibiclens and draped in the usual sterile fashion. A timeout procedure was performed. IV antibiotics were given prior to incision. The procedure began with a five-inch Pfannenstiel incision over the lower abdomen. The subcutaneous tissue was dissected with Bovie. The linea alba was split in line with fibers. The bladder was identified. The bladder was protected throughout the procedure. At this point the pubic symphysis was identified. There was disruption of the pubic symphysis. A 3.5 screw was placed on each side of the pubic symphysis. A 3.5 reduction clamp was now used to reduce the symphysis. Fluoroscopy confirmed excellent alignment of the pelvic ring. A six-hole Synthes plate was selected. The plate was provisionally held to bone with K-wires. 3.5 cortical screws were used to compress plate to bone. Three screws were placed on each side of the pubic symphysis. All screws were pre-drilled and pre-measured for appropriate length. Final fluoroscopy revealed well-aligned fracture with well-placed hardware. Next attention was turned to closure. A GHULAM drain was placed deep in the wound. Fascial layer was closed with #1 Vicryl. Subcutaneous tissues closed with 3-0 Vicryl. Skin was closed with alia. Sterile dressings were applied. Needle and sponge counts were correct. Julio Cesar Perez MD Nov 12, 2016 11:44
[2016-11-12] MEDS ORDERED: MORPHINE SULFATE 4 MG/ML INJ IV PUSH PRN (11:45)
[2016-11-12] MEDS ORDERED: PROPOFOL 200 MG/20 ML AMP IV ONE (12:00)
[2016-11-12] MEDS ORDERED: LIDOCAINE HCL 1% PF 5 ML AMPULE OTHER ONE (12:00)
[2016-11-12] MEDS ORDERED: ROCURONIUM INJ 50 MG/5 ML SYRINGE IV PUSH ONE (12:00)
[2016-11-12] MEDS ORDERED: MIDAZOLAM HCL 2 MG/2 ML VIAL IV ONE (12:00)
[2016-11-12] MEDS ORDERED: NEOSTIGMINE 3 MG/3 ML SYR IV ONE (12:00)
[2016-11-12] MEDS ORDERED: GLYCOPYRROLATE 1 MG/5 ML SYRINGE IV PUSH ONE (12:00)
[2016-11-12] MEDS ORDERED: ONDANSETRON HCL 4 MG/2 ML VIAL IV PUSH ONE (12:00)
[2016-11-12] MEDS ORDERED: DO NOT ADM ANY ANTICOAGULANT DRUGS PRN (12:05)
--- NOTE | 2016-11-12 12:05 | PD.ORT.PN ---
Subjective Subjective Remarks POD 0 s/p ORIF pubic symphysis stable in pacu Objective Vitals Vital Signs Date Time Temp Pulse Resp B/P (MAP) Pulse Ox O2 Delivery O2 Flow Rate FiO2 11/12/16 08:21 98.0 53 22 117/74 (88) 100 11/12/16 07:54 16 11/12/16 05:40 97.9 68 16 102/58 (73) 98 11/12/16 01:06 97.1 53 17 110/57 (74) 95 11/11/16 20:30 97.9 65 17 121/65 (83) 66 11/11/16 16:39 97.5 61 16 109/64 (79) 97 11/11/16 12:08 97.0 66 17 112/62 (79) 96 I/O 11/11/16 11/11/16 11/11/16 11/12/16 11/12/16 11/12/16 07:00 15:00 23:00 07:00 15:00 23:00 Intake Total 240 ml 800 ml Output Total 100 ml 1100 ml 160 ml Balance -100 ml -860 ml 640 ml Intake Oral 240 ml IV Total 800 ml Output Urine Total 100 ml 1100 ml 60 ml Estimated Blood Loss 100 ml # Voids 6 2 # Bowel Movements 2 2 Result Diagram: 11/12/16 0612 11/12/16 0612 Imaging Last 24 hours Impressions Thoracic Spine CT 11/08/161503 Signed Impressions: Service Date/Time: Tuesday, November 08, 2016 15:11 - CONCLUSION: 1. Minimal degenerative changes in the mid and lower dorsal spine with small marginal spurs. 2. No fracture. Spinal canal is patent throughout. 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 No fracture is identified. Omid Kincaid MD Lumbar Spine CT 11/08/16 1503 Signed Impressions: Service Date/Time: Tuesday, November 08, 2016 15:11 - CONCLUSION: No acute lumbar spine abnormality is identified. Omid Kincaid MD Head CT 11/08/16 1506 Signed Impressions: Service Date/Time: Tuesday, November 08, 2016 15:03 - CONCLUSION: Negative for acute traumatic injury. Tyrel Mcelroy MD FACR Chest X-Ray 11/08/16 1504 Signed Impressions: Service Date/Time: Tuesday, November 08, 2016 14:47 - CONCLUSION: No acute finding is identified. Omid Kincaid MD Chest CT 11/08/16 1504 Signed Impressions: Service Date/Time: Tuesday, November 08, 2016 15:11 - CONCLUSION: Negative for acute traumatic injury.. Tyrel Mcelroy MD FACR Cervical Spine CT 11/08/16 1504 Signed Impressions: Service Date/Time: Tuesday, November 08, 2016 15:03 - CONCLUSION: No acute cervical spine abnormality is identified. 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 Correlation suggested Negative for acute traumatic injury. Tyrel Mcelroy MD FACR Objective Remarks Pelvis: dressings clean and dry. intact. +drain Assessment & Plan Assessment and Plan 1) Pubic Symphysis Disruption s/p ORIF - POD 0 -50% BLE for transfers only -work on wheelchair transfers -daily dressing changes POD 2. -plan for DC of drain POD 2 -likely will need temporary stay in rehab -scripts on chart -f/u with [facility] or [facility] in 2 weeks Rommel Pro Nov 12, 2016 12:05
[2016-11-12] MEDS ORDERED: *morphine SULFATE 8 MG/ML PERIprocedure ONLY ONE ×3 (12:15→12:54)
--- NOTE | 2016-11-12 14:12 | RADRPT ---
EXAM DATE/TIME: 11/12/2016 11:27 [facility] COMPARISON: PELVIS AP/INLET/OUTLET (3VWS), November 09, 2016, 18:21. INDICATIONS : Open reduction internal fixation pubic symphysis. MEDICAL HISTORY : Bladder. SURGICAL HISTORY : Bladder surgery. ENCOUNTER: Initial ACUITY: 1 day PAIN SCORE: Non-responsive. LOCATION: pelvis CONCLUSION: Fluoroscopic images during placement of plate and screws along the pubic symphysis. T here is mild diastases. Raul Suarez MD on November 12, 2016 at 14:10 Board Certified Radiologist. This report was verified electronically.
[2016-11-12] MEDS: ACETAMINOPHEN/HYDROcodone 325 MG/10 MG TAB PO PRN ×2 (15:02→21:10)
[2016-11-12] MEDS: LACTATED RINGER'S 1000 ML INJ 1,000 ML IV SCH ×2 (15:31→21:36)
[2016-11-12] MEDS: ceFAZolin 2 GM PREMIX 50 ML IV SCH ×2 (15:31→23:11)
[2016-11-12 15:47] VITALS: O2SAT 97
[2016-11-12 16:27] VITALS: BP 107/52; PULSE 62; RESP 20; TEMP 97.5; O2SAT 97
--- NOTE | 2016-11-12 17:02 | HHI.PR ---
Review/Management Diagnosis s/p trauma from fall with sz---stable on keppra RLE weakness--possible cord contusion. no evidence for spinal stenosis on MRI Plan ok from neuro standpoint to taper decadron. Diagnosis/Plan: Subjective Subjective Comments s/p surgery for pubic symphisis states he has been regaining strength in right leg Has had no sz--on keppra Active Medications Current Medications Medications (Trade) Dose Ordered Sig/Kasi Route Start Time Stop Time Status Last Admin (Decadron Inj) 4 mg Q6HR IV PUSH 11/08/16 18:00 11/12/16 12:30 (Pepcid) 20 mg Q12HR PO 11/08/16 21:00 11/11/16 22:37 (Keppra) 500 mg Q12HR PO 11/08/16 21:00 11/11/16 22:37 (Ativan Inj) 1 mg Q4H PRN IV PUSH 11/08/16 17:00 (NS Flush) 2 ml UNSCH PRN IV FLUSH 11/08/16 17:45 (Vasotec Inj) 1.25 mg Q8H PRN IV 11/08/16 17:45 (Zofran Inj) 4 mg Q6H PRN IV 11/08/16 17:45 (Tylenol) 650 mg Q4H PRN PO 11/08/16 17:45 (Carli-Colace) 1 tab BID PO 11/08/16 21:00 11/11/16 22:36 (Lactulose Liq) 30 ml DAILY PO 11/11/16 12:00 (Milk Of Magnesia Liq) 30 ml HS PO 11/11/16 21:00 Lactated Ringer's 1,000 ml @ 100 mls/hr Q10H IV 11/12/16 11:36 11/12/16 15:31 (Lovenox Inj) 30 mg Q12H SQ 11/13/16 01:00 Cefazolin Sodium/ Dextrose 50 ml @ 100 mls/hr Q8H IV 11/12/16 15:00 11/14/16 07:29 11/12/16 15:31 ([place] 10-325 Mg) 1 tab Q3H PRN PO 11/12/16 11:45 11/12/16 15:02 (Morphine Inj) 4 mg Q3H PRN IV PUSH 11/12/16 11:45 Miscellaneous Information ALL NURSING DEPARTME... UNSCH PRN .XX 11/12/16 12:05 11/13/16 12:04 Allergies Allergies Coded Allergies No Known Allergies (Unverified11/08/16) Exam I&O / VS 11/12/16 11/12/16 11/13/16 15:00 23:00 07:00 Intake Total 1000 ml Output Total 500 ml Balance 500 ml Intake Oral 200 ml IV Total 800 ml Output Urine Total 400 ml Estimated Blood Loss 100 ml Vital Signs Date Time Temp Pulse Resp B/P (MAP) Pulse Ox O2 Delivery O2 Flow Rate FiO2 11/12/16 16:27 97.5 62 20 107/52 (70) 97 11/12/16 16:02 18 11/12/16 12:50 97.7 64 20 120/60 (80) 98 Room Air 11/12/16 12:45 64 20 120/60 (80) 98 Room Air 11/12/16 12:30 64 20 121/62 (81) 100 Room Air 11/12/16 12:15 82 20 122/66 (84) 100 Room Air 11/12/16 12:05 97.7 98 20 129/73 (91) 98 Nasal Cannula 2 11/12/16 08:21 98.0 53 22 117/74 (88) 100 11/12/16 07:54 16 11/12/16 05:40 97.9 68 16 102/58 (73) 98 11/12/16 01:06 97.1 53 17 110/57 (74) 95 11/11/16 20:30 97.9 65 17 121/65 (83) 66 Exam Comments lethargic, arousable, speech normal CN intact MOTOR--generalized weakness with no focal weakness Objective Micro and Labs Laboratory Tests Test 11/12/16 06:12 White Blood Count 10.8 Red Blood Count 4.83 Hemoglobin 14.0 Hematocrit 41.3 Mean Corpuscular Volume 85.4 Mean Corpuscular Hemoglobin 29.1 Mean Corpuscular Hemoglobin Concent 34.0 Red Cell Distribution Width 12.5 Platelet Count 302 Mean Platelet Volume 8.6 Blood Urea Nitrogen 17 Creatinine 0.77 Random Glucose 106 Calcium Level 9.1 Sodium Level 139 Potassium Level 3.6 Chloride Level 105 Carbon Dioxide Level 28.4 Anion Gap 6 Estimat Glomerular Filtration Rate 114 Jason,Bacilio A. PhD Nov 12, 2016 17:02
[2016-11-12] MEDS: MAGNESIUM HYDROXIDE SUSP 30 ML CUP PO SCH (21:00)
[2016-11-12 21:04] VITALS: BP 109/53; PULSE 53; RESP 20; TEMP 98.3; O2SAT 97
[2016-11-13] VITALS (8 sets, daily range): BP systolic 105–179; BP diastolic 53–94; PULSE 46–62; RESP 16–20; TEMP 97.6–98.2; O2SAT 95–99
[2016-11-13] MEDS: ENOXAPARIN SODIUM 30 MG/0.3 ML SYRINGE SQ SCH ×2 (01:15→12:41)
[2016-11-13] MEDS: DEXAMETHASONE SOD PHOS 4 MG/ML VIAL IV PUSH SCH ×3 (04:01→20:40)
[2016-11-13] MEDS: ceFAZolin 2 GM PREMIX 50 ML IV SCH ×3 (06:05→22:00)
[2016-11-13 06:31] LABS: HEMATOCRIT 37.2 % (39.0-51.0); REVIEW FLAG FINAL
[2016-11-13] MEDS: levETIRAcetam 500 MG TAB PO SCH ×2 (08:18→20:39)
[2016-11-13] MEDS: FAMOTIDINE 20 MG TAB PO SCH ×2 (08:18→20:39)
[2016-11-13] MEDS: DOCUSATE SODIUM 50 MG/SENNA 8.6 MG TAB PO SCH ×2 (08:18→20:39)
[2016-11-13] MEDS: ACETAMINOPHEN/HYDROcodone 325 MG/10 MG TAB PO PRN ×5 (08:19→21:29)
--- NOTE | 2016-11-13 09:18 | HHI.PR ---
Subjective Subjective Notes PTD: 5 Patient lying in bed. Several family members at bedside. Sore to pelvic area. Objective Vitals/I&O Vital Signs Date Time Temp Pulse Resp B/P (MAP) Pulse Ox O2 Delivery O2 Flow Rate FiO2 11/13/16 05:46 179/94 (122) 11/13/16 04:00 97.6 53 20 97 11/12/16 22:33 21 11/12/16 12:50 Room Air 11/12/16 12:05 2 Labs Laboratory Tests Test 11/13/16 05:20 Hemoglobin 12.6 Hematocrit 37.2 Narrative Exam GENERAL: This is a 28 year old male lying in bed. No distress noted. SKIN: Warm and dry. HEAD: Atraumatic. Normocephalic. EYES: PERRLA ENT: No nasal bleeding or discharge. Mucous membranes pink and moist. NECK: Trachea midline. No JVD. CARDIOVASCULAR: Regular rate and rhythm. RESPIRATORY: No accessory muscle use. Lungs are clear to auscultation. Breath sounds equal bilaterally. No distress or dyspnea. GASTROINTESTINAL: BS + x 4 quads. Abdomen soft, non-tender, nondistended. MUSCULOSKELETAL: Extremities without cyanosis, or edema. + peripheral pulses x 4 extremities. Warm with good capillary refill and sensation. MAEW. NEUROLOGICAL: Awake and alert. Normal speech and pattern. A/P Problem List: (1) Sprain of symphysis pubis ICD Codes: S33.8XXA - Sprain of other parts of lumbar spine and pelvis, initial encounter Status: Acute (2) Concussion with brief (less than one hour) loss of consciousness ICD Codes: S06.0X9A - Concussion with loss of consciousness of unspecified duration, initial encounter Status: Acute (3) Post traumatic seizure ICD Codes: R56.1 - Post traumatic seizures Status: Acute Assessment and Plan NOME: This is a 28-year-old male who sustained a fall. He fell approximately 5-6 feet off a ladder landing on his buttocks and striking his head. He was unable to move his leg. Tonic-clonic seizure while en route to the hospital. INJURIES: Concussion Diastasis of the pubic symphysis Procedures: 11/12: ORIF pubic symphysis Consults: Orthopedics. Neurology. Neuropsych. Case management. Diet: Regular diet. Tolerating po diet. Encourage good po intake with each meal. Pulmonary: Encourage good pulmonary toileting. IS at bedside and pt encouraged to use. Rationale for use explained to patient, and verbalized understanding. PAIN Management: [place] 10 mg every 3 hours. Morphine 4 mg q 3 hours for breakthrough pain. Activity: OOB. PT and OT ordered. (50% WB bilat LE) Wheelchair training. GI prophylaxis: Pepcid BID. Bowel regimen: Carli-colace BID. MOM. Lactulose. LBM: 11/12 DVT prophylaxis: Mechanical VTE with SCDs. Chemical management with Lovenox 40 QD SQ. DC Planning: Case management consulted for assistance with final discharge disposition. Consult place to [place] admission nurse liason to evaluate for rehab admission. Emotional support provided to patient and family at bedside and plan of care discussed. Discussed with RN at bedside. Patient is hemodynamically stable and being managed on the med/surg floor. The trauma team will round each day, and evaluate plan of care on a daily basis. Concussion Diastasis of the pubic symphysis Orthopedics consulted and assisting in management and care 11/12: ORIF pubic symphysis Pain management Encourage out of bed - call for assistance PT and OT ordered. 50 % WB BLE Wheelchair training Plan for GHULAM removal on 11/14 DVT prophylaxis Seizure precautions Keppra 500 BID Status post in-hospital fall Problem Qualifiers (1) Sprain of symphysis pubis: Qualified Codes: S33.8XXA - Sprain of other parts of lumbar spine and pelvis, initial encounter Shelley Frey Nov 13, 2016 09:18
[2016-11-13] MEDS: LACTULOSE SYRUP 20 GM/30 ML CUP PO SCH (12:00)
[2016-11-13] MEDS: LACTATED RINGER'S 1000 ML INJ 1,000 ML IV SCH (13:00)
--- NOTE | 2016-11-13 13:20 | PD.ORT.PN ---
Subjective Subjective Remarks complains of pain at pelvis Objective Vitals Vital Signs Date Time Temp Pulse Resp B/P (MAP) Pulse Ox O2 Delivery O2 Flow Rate FiO2 11/13/16 08:00 98.2 46 16 107/58 (74) 97 11/13/16 05:46 179/94 (122) 11/13/16 04:00 97.6 53 20 107/59 (75) 97 11/13/16 00:00 98.0 52 18 105/53 (70) 95 11/12/16 22:33 21 11/12/16 21:04 98.3 53 20 109/53 (71) 97 11/12/16 16:27 97.5 62 20 107/52 (70) 97 11/12/16 16:02 18 11/12/16 15:47 97 21 I/O 11/12/16 11/12/16 11/12/16 11/13/16 11/13/16 11/13/16 07:00 15:00 23:00 07:00 15:00 23:00 Intake Total 240 ml 1000 ml 220 ml Output Total 1100 ml 500 ml 340 ml 400 ml Balance -860 ml 500 ml -340 ml -180 ml Intake Oral 240 ml 200 ml 220 ml IV Total 800 ml Output Urine Total 1100 ml 400 ml 300 ml 400 ml Drainage Total 40 ml Estimated Blood Loss 100 ml # Bowel Movements 2 0 Result Diagram: 11/13/16 0520 11/12/16 0612 Imaging Last 24 hours Impressions Thoracic Spine CT 11/08/16 1504 Signed Impressions: Service Date/Time: Tuesday, November 08, 2016 15:11 - CONCLUSION: 1. Minimal degenerative changes in the mid and lower dorsal spine with small marginal spurs. 2. No fracture. Spinal canal is patent throughout. 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 No fracture is identified. Omid Kincaid MD Lumbar Spine CT 11/08/16 1504 Signed Impressions: Service Date/Time: Tuesday, November 08, 2016 15:11 - CONCLUSION: No acute lumbar spine abnormality is identified. Omid Kincaid MD Head CT 11/08/16 1504 Signed Impressions: Service Date/Time: Tuesday, November 08, 2016 15:03 - CONCLUSION: Negative for acute traumatic injury. Tyrel Mcelroy MD FACR Chest X-Ray 11/08/16 1504 Signed Impressions: Service Date/Time: Tuesday, November 08, 2016 14:47 - CONCLUSION: No acute finding is identified. Omid Kincaid MD Chest CT 11/08/16 1504 Signed Impressions: Service Date/Time: Tuesday, November 08, 2016 15:11 - CONCLUSION: Negative for acute traumatic injury.. Tyrel Mcelroy MD FACR Cervical Spine CT 11/08/16 1504 Signed Impressions: Service Date/Time: Tuesday, November 08, 2016 15:03 - CONCLUSION: No acute cervical spine abnormality is identified. 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 Correlation suggested Negative for acute traumatic injury. Tyrel Mcelroy MD FACR Objective Remarks Pelvis: dressings have some minor bloody drainage. +drain with serosang fluid L leg with good motion of the toes R leg with min motion of toes (pt states this is consistent with pre-op) B calves NT Assessment & Plan Assessment and Plan 1) Pubic Symphysis Disruption s/p ORIF - POD 1 -50% BLE for transfers only -work on wheelchair transfers -daily dressing changes POD tomorrow. -plan for DC of drain POD tomorrow -likely will need temporary stay in rehab -scripts on chart -f/u with [facility] or [facility] in 2 weeks Deion Carlos MD Nov 13, 2016 13:20
[2016-11-13] MEDS: MAGNESIUM HYDROXIDE SUSP 30 ML CUP PO SCH (20:40)
[2016-11-14] VITALS (7 sets, daily range): BP systolic 100–128; BP diastolic 52–69; PULSE 53–58; RESP 18–20; TEMP 98–98.6; O2SAT 96–99
[2016-11-14] MEDS: ENOXAPARIN SODIUM 30 MG/0.3 ML SYRINGE SQ SCH ×2 (00:44→11:58)
[2016-11-14] MEDS: ACETAMINOPHEN/HYDROcodone 325 MG/10 MG TAB PO PRN ×7 (00:45→21:08)
[2016-11-14] MEDS: LACTATED RINGER'S 1000 ML INJ 1,000 ML IV SCH ×3 (03:33→23:36)
[2016-11-14] MEDS: DEXAMETHASONE SOD PHOS 4 MG/ML VIAL IV PUSH SCH ×3 (04:33→21:08)
[2016-11-14] MEDS: ceFAZolin 2 GM PREMIX 50 ML IV SCH (06:11)
[2016-11-14] MEDS: DOCUSATE SODIUM 50 MG/SENNA 8.6 MG TAB PO SCH ×2 (08:18→21:08)
[2016-11-14] MEDS: levETIRAcetam 500 MG TAB PO SCH ×2 (08:18→21:08)
[2016-11-14] MEDS: FAMOTIDINE 20 MG TAB PO SCH ×2 (08:18→21:08)
[2016-11-14] MEDS: LACTULOSE SYRUP 20 GM/30 ML CUP PO SCH (09:00)
--- NOTE | 2016-11-14 09:50 | PD.ORT.PN ---
Subjective Subjective Remarks complains of pain at pelvis, stable from yesterday Objective Vitals Vital Signs Date Time Temp Pulse Resp B/P (MAP) Pulse Ox O2 Delivery O2 Flow Rate FiO2 11/14/16 08:00 98.3 53 18 113/59 (77) 96 11/14/16 04:00 98.2 58 20 100/59 (73) 97 11/14/16 00:00 98.1 53 20 107/52 (70) 96 11/13/16 20:00 98.1 62 20 120/66 (84) 99 11/13/16 16:00 97.9 60 16 106/59 (75) 97 11/13/16 12:00 97.9 54 18 116/62 (80) 98 I/O 11/13/16 11/13/16 11/13/16 11/14/16 11/14/16 11/14/16 07:00 15:00 23:00 07:00 15:00 23:00 Intake Total 220 ml 960 ml 50 ml 560 ml Output Total 400 ml 350 ml 650 ml 600 ml Balance -180 ml 610 ml -600 ml -40 ml Intake Oral 220 ml 960 ml IV Total 50 ml 560 ml Output Urine Total 400 ml 350 ml 650 ml 600 ml # Voids 3 # Bowel Movements 0 Result Diagram: 11/13/16 0520 11/12/16 0612 Imaging Last 24 hours Impressions Thoracic Spine CT 11/08/16 1504 Signed Impressions: Service Date/Time: Tuesday, November 08, 2016 15:11 - CONCLUSION: 1. Minimal degenerative changes in the mid and lower dorsal spine with small marginal spurs. 2. No fracture. Spinal canal is patent throughout. 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 No fracture is identified. Omid Kincaid MD Lumbar Spine CT 11/08/16 1505 Signed Impressions: Service Date/Time: Tuesday, November 08, 2016 15:11 - CONCLUSION: No acute lumbar spine abnormality is identified. Omid Kincaid MD Head CT 11/08/16 1507 Signed Impressions: Service Date/Time: Tuesday, November 08, 2016 15:03 - CONCLUSION: Negative for acute traumatic injury. Tyrel Mcelroy MD FACR Chest X-Ray 11/08/16 1504 Signed Impressions: Service Date/Time: Tuesday, November 08, 2016 14:47 - CONCLUSION: No acute finding is identified. Omid Kincaid MD Chest CT 11/08/16 1504 Signed Impressions: Service Date/Time: Tuesday, November 08, 2016 15:11 - CONCLUSION: Negative for acute traumatic injury.. Tyrel Mcelroy MD FACR Cervical Spine CT 11/08/16 1504 Signed Impressions: Service Date/Time: Tuesday, November 08, 2016 15:03 - CONCLUSION: No acute cervical spine abnormality is identified. 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 Correlation suggested Negative for acute traumatic injury. Tyrel Mcelroy MD FACR Objective Remarks Pelvis: incision is C/D/I, no erythema. I d/c'd the drain (serosang fluid in bulb) L leg with good motion of the toes R leg with min motion of toes (pt states this is consistent with pre-op) B calves NT Assessment & Plan Assessment and Plan 1) Pubic Symphysis Disruption s/p ORIF - POD 2 -50% BLE for transfers only -work on wheelchair transfers -daily dressing changes (with pressure dressing on drain site). -drain removed today by me -likely will need temporary stay in rehab -scripts on chart -f/u with [facility] or [facility] in 2 weeks Deion Carlos MD Nov 14, 2016 09:50
--- NOTE | 2016-11-14 12:03 | HHI.PR ---
Subjective Subjective Notes PTD: 6 Lying in bed. C/O increased pain today, 09/30, due to drain removal. He states that pain medications are controlling his pain well. Describes decreased strength to Right leg. He has been working with PT and OT. Objective Vitals/I&O Vital Signs Date Time Temp Pulse Resp B/P (MAP) Pulse Ox O2 Delivery O2 Flow Rate FiO2 11/14/16 09:58 98 21 11/14/16 08:00 98.3 53 18 113/59 (77) 11/12/16 12:50 Room Air 11/12/16 12:05 2 Labs Laboratory Tests Test 11/08/16 14:55 11/09/16 10:04 11/12/16 06:12 11/13/16 05:20 Bedside Hemoglobin 13.6 G/DL Bedside Hematocrit 40.0 % Prothrombin Time 12.3 SEC Prothromb Time International Ratio 1.1 RATIO Activated Partial Thromboplast Time 25.4 SEC Bedside Sodium 140 MMOL/L Bedside Potassium 4.4 MMOL/L Bedside Chloride 102 MMOL/L Bedside Blood Urea Nitrogen 11 MG/DL Bedside Creatinine 0.9 MG/DL Bedside Glucose 110 MG/DL Ethyl Alcohol Level LESS THAN 3 MG/DL Neutrophils (%) (Auto) 92.0 % Lymphocytes (%) (Auto) 6.9 % Monocytes (%) (Auto) 1.0 % Eosinophils (%) (Auto) 0.0 % Basophils (%) (Auto) 0.1 % Neutrophils # (Auto) 6.4 TH/MM3 Lymphocytes # (Auto) 0.5 TH/MM3 Monocytes # (Auto) 0.1 TH/MM3 Eosinophils # (Auto) 0.0 TH/MM3 Basophils # (Auto) 0.0 TH/MM3 CBC Comment DIFF FINAL Differential Comment Blood Urea Nitrogen 13 MG/DL 17 MG/DL Creatinine 0.76 MG/DL 0.77 MG/DL Random Glucose 118 MG/DL 106 MG/DL Total Protein 7.7 GM/DL Albumin 4.0 GM/DL Calcium Level 8.7 MG/DL 9.1 MG/DL Alkaline Phosphatase 62 U/L Aspartate Amino Transf (AST/SGOT) 6 U/L Alanine Aminotransferase (ALT/SGPT) 18 U/L Total Bilirubin 0.8 MG/DL Sodium Level 137 MEQ/L 139 MEQ/L Potassium Level 3.8 MEQ/L 3.6 MEQ/L Chloride Level 108 MEQ/L 105 MEQ/L Carbon Dioxide Level 22.0 MEQ/L 28.4 MEQ/L White Blood Count 10.8 TH/MM3 Red Blood Count 4.83 MIL/MM3 Mean Corpuscular Volume 85.4 FL Mean Corpuscular Hemoglobin 29.1 PG Mean Corpuscular Hemoglobin Concent 34.0 % Red Cell Distribution Width 12.5 % Platelet Count 302 TH/MM3 Mean Platelet Volume 8.6 FL Anion Gap 6 MEQ/L Estimat Glomerular Filtration Rate 114 ML/MIN Hemoglobin 12.6 GM/DL Hematocrit 37.2 % Narrative Exam GENERAL: This is a 28 year old male lying in bed. No distress noted. SKIN: Warm and dry. HEAD: Atraumatic. Normocephalic. EYES: PERRLA ENT: No nasal bleeding or discharge. Mucous membranes pink and moist. NECK: Trachea midline. No JVD. CARDIOVASCULAR: Regular rate and rhythm. RESPIRATORY: No accessory muscle use. Lungs are clear to auscultation. Breath sounds equal bilaterally. No distress or dyspnea. GASTROINTESTINAL: BS + x 4 quads. Abdomen soft, non-tender, nondistended. MUSCULOSKELETAL: Extremities without cyanosis, or edema. + peripheral pulses x 4 extremities. Warm with good capillary refill and sensation. MAEW. NEUROLOGICAL: Awake and alert. Normal speech and pattern. A/P Problem List: (1) Sprain of symphysis pubis ICD Codes: S33.8XXA - Sprain of other parts of lumbar spine and pelvis, initial encounter Status: Acute (2) Concussion with brief (less than one hour) loss of consciousness ICD Codes: S06.0X9A - Concussion with loss of consciousness of unspecified duration, initial encounter Status: Acute (3) Post traumatic seizure ICD Codes: R56.1 - Post traumatic seizures Status: Acute Assessment and Plan [place]: This is a 28-year-old male who sustained a fall. He fell approximately 5-6 feet off a ladder landing on his buttocks and striking his head. He was unable to move his leg. Tonic-clonic seizure while en route to the hospital. INJURIES: Concussion Diastasis of the pubic symphysis Procedures: 9/22: ORIF pubic symphysis Consults: Orthopedics. Neurology. Neuropsych. Case management. Diet: Regular diet. Tolerating po diet. Encourage good po intake with each meal. Pulmonary: Encourage good pulmonary toileting. IS at bedside and pt encouraged to use. Rationale for use explained to patient, and verbalized understanding. PAIN Management: Douds 10 mg every 3 hours. Morphine 4 mg q 3 hours for breakthrough pain. Activity: OOB. PT and OT ordered. (50% WB bilat LE) Wheelchair training. GI prophylaxis: Pepcid BID. Bowel regimen: Carli-colace BID. MOM. Lactulose. LBM: 11/12 DVT prophylaxis: Mechanical VTE with SCDs. Chemical management with Lovenox 40 QD SQ. DC Planning: Case management consulted for assistance with final discharge disposition. Consult [facility] admission nurse liason to evaluate for rehab admission. Emotional support provided to patient and family at bedside and plan of care discussed. Discussed with RN at bedside. Patient is hemodynamically stable and being managed on the med/surg floor. The trauma team will round each day, and evaluate plan of care on a daily basis. Concussion Diastasis of the pubic symphysis Orthopedics consulted and assisting in management and care 11/12: ORIF pubic symphysis Pain management Encourage out of bed - call for assistance PT and OT ordered. 50 % WB BLE Wheelchair training GHULAM removal today at bedside DVT prophylaxis Seizure precautions Keppra 500 BID Status post in-hospital fall Awaiting acceptance at rehab Problem Qualifiers (1) Sprain of symphysis pubis: Qualified Codes: S33.8XXA - Sprain of other parts of lumbar spine and pelvis, initial encounter Shelley Frey Nov 14, 2016 12:03
[2016-11-14] MEDS ORDERED: WHEEMIS3 (15:08)
[2016-11-14] MEDS ORDERED: BEDSIDE COMMODE1 MI1 (15:08)
[2016-11-14] MEDS: MAGNESIUM HYDROXIDE SUSP 30 ML CUP PO SCH (21:07)
[2016-11-15] VITALS (7 sets, daily range): BP systolic 112–147; BP diastolic 58–84; PULSE 56–78; RESP 17–20; TEMP 97.5–98.2; O2SAT 95–99
[2016-11-15] MEDS: ENOXAPARIN SODIUM 30 MG/0.3 ML SYRINGE SQ SCH ×2 (01:00→13:17)
[2016-11-15] MEDS: ACETAMINOPHEN/HYDROcodone 325 MG/10 MG TAB PO PRN ×5 (02:32→21:14)
[2016-11-15] MEDS: LORazepam 2 MG/ML VIAL IV PUSH PRN ×2 (05:40→13:15)
[2016-11-15] MEDS: DEXAMETHASONE SOD PHOS 4 MG/ML VIAL IV PUSH SCH ×3 (05:41→21:13)
--- NOTE | 2016-11-15 07:04 | PD.ORT.PN ---
Subjective Subjective Remarks POD 3 s/p ORIf pubic symphysis doing well. pain controlled. reports seizure activity this morning Objective Vitals Vital Signs Date Time Temp Pulse Resp B/P (MAP) Pulse Ox O2 Delivery O2 Flow Rate FiO2 11/15/16 00:00 98.0 64 17 115/66 (82) 97 11/14/16 21:15 98.1 58 18 109/60 (76) 98 11/14/16 16:00 98.0 57 18 128/59 (82) 96 11/14/16 12:00 98.6 53 20 126/69 (88) 99 11/14/16 09:58 98 21 11/14/16 08:00 98.3 53 18 113/59 (77) 96 I/O 11/14/16 11/14/16 11/14/16 11/15/16 11/15/16 11/15/16 07:00 15:00 23:00 07:00 15:00 23:00 Intake Total 560 ml 800 ml Output Total 600 ml 925 ml Balance -40 ml -125 ml Intake Oral 800 ml IV Total 560 ml Output Urine Total 600 ml 925 ml # Voids 3 # Bowel Movements 0 0 Result Diagram: 11/13/16 0520 11/12/16 0612 Imaging Last 24 hours Impressions Thoracic Spine CT 11/08/16 150 Signed Impressions: Service Date/Time: Tuesday, November 08, 2016 15:11 - CONCLUSION: 1. Minimal degenerative changes in the mid and lower dorsal spine with small marginal spurs. 2. No fracture. Spinal canal is patent throughout. 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 No fracture is identified. Omid Kincaid MD Lumbar Spine CT 11/08/16 150 Signed Impressions: Service Date/Time: Tuesday, November 08, 2016 15:11 - CONCLUSION: No acute lumbar spine abnormality is identified. Omid Kincaid MD Head CT 11/08/16 1504 Signed Impressions: Service Date/Time: Tuesday, November 08, 2016 15:03 - CONCLUSION: Negative for acute traumatic injury. Tyrel Mcelroy MD FACR Chest X-Ray 11/08/16 1504 Signed Impressions: Service Date/Time: Tuesday, November 08, 2016 14:47 - CONCLUSION: No acute finding is identified. Omid Kincaid MD Chest CT 11/08/16 1504 Signed Impressions: Service Date/Time: Tuesday, November 08, 2016 15:11 - CONCLUSION: Negative for acute traumatic injury.. Tyrel Mcelroy MD FACR Cervical Spine CT 11/08/16 1504 Signed Impressions: Service Date/Time: Tuesday, November 08, 2016 15:03 - CONCLUSION: No acute cervical spine abnormality is identified. 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 Correlation suggested Negative for acute traumatic injury. Tyrel Mcelroy MD FACR Objective Remarks Pelvis: incision is C/D/I, no erythema. I d/c'd the drain (serosang fluid in bulb) L leg with good motion of the toes R leg with min motion of toes (pt states this is consistent with pre-op) B calves NT Assessment & Plan Assessment and Plan 1) Pubic Symphysis Disruption s/p ORIF - POD 3 -50% BLE for transfers only -work on wheelchair transfers -daily dressing changes (with pressure dressing on drain site). -likely will need temporary stay in rehab -scripts on chart -ortho cleared for DC to rehab -f/u with [facility] or [facility] in 2 weeks Rommel Pro Nov 15, 2016 07:04
[2016-11-15] MEDS: LACTULOSE SYRUP 20 GM/30 ML CUP PO SCH (09:00)
[2016-11-15] MEDS: LACTATED RINGER'S 1000 ML INJ 1,000 ML IV SCH ×2 (09:36→19:36)
[2016-11-15] MEDS: levETIRAcetam 500 MG TAB PO SCH ×2 (09:38→21:14)
[2016-11-15] MEDS: FAMOTIDINE 20 MG TAB PO SCH ×2 (09:39→21:14)
[2016-11-15] MEDS: DOCUSATE SODIUM 50 MG/SENNA 8.6 MG TAB PO SCH ×2 (09:39→21:14)
--- NOTE | 2016-11-15 11:22 | HHI.PR ---
Neuropsych Emotional Emotional: Intact: Emotional, Anxious/Fearful, Depressed/Sad, Hostile/Resentful , Irritable/Angry/Frustrate, Labile, Constricted/Blunted Behavior Behavior: Intact: Behavior, Coping/Acceptance, Cooperative w/ Treatment, Motivation, Frustration Tolerance/Leslie, Impulsive/Agitated, Suicidal/Homicidal Risk Cognitive Cognitive: Intact: Cognitive, Attention/Concentration, Confused/Orientation, Insight/Awareness, Judgement/Problem-Solving, Memory Psychosocial Psychosocial: Intact: Psychosocial, Family/Other Adjustment, Realistic Expectation, Unable to Asses: Self-Esteem/Confidence Progress Notes/Response to Tx Contents of Sessions: Adjustment Time with Patient: 15 minutes Premorbid psychological status Premorbid Cognitive, Emotional and Behavioral Status: Stable. The patient has high school education and a solid work history prior to this injury. The patient has no prior psychiatric difficulties, as described above. Substance abuse history is unremarkable. Behavioral Reactions of Patient and Family/Support System: Stable. The patient s family is experiencing ongoing issues of adjustment given the nature of the injury, and this aspect of recovery will require ongoing monitoring. Emotional/Behavioral Status of Patient and Family/Support System: Stable. Pertinent issues, if appropriate to this patients clinical care, are described in detail above. Maximizing acute care outcome It is recommended that the patient be monitored for emergent behavioral impulsivity as the medical condition evolves. This patients neuropathological challenges may limit their rehabilitation potential going forward, and these challenges will require specialized therapeutic skills to maximize outcome. Anticipated Problems Ongoing areas of concern will include behavioral impulsivity, lack of insight and judgment, which is expected to improve with time and treatment. Presently , the patient is alert, oriented and generally neurocognitively intact except for those issues identified in the neurobehavioral status exam. Treatment Plan This clinician will continue to follow with you throughout the course of this patients acute treatment, and I will be available to meet with the patients family/support system to facilitate their understanding and the ongoing care of their family member. The goals of neuropsychological intervention shall be both educational and supportive to the family/support system as is deemed clinically appropriate. [facility] Level: VII:Automatic-appropriate Impression Neurobehavioral status examination results are consistent with a mild concussion given symptom report and concentration difficulties. Diagnosis: (1) Concussion with brief (less than one hour) loss of consciousness Status: Acute Progress Note Narrative Ongoing follow-up of patient seen during daily trauma rounds. This is day 7 post injury, and he continues to complain of pain and RLE weakness. Reportedly , he had a seizure this morning requiring Ativan, which is being worked up further. The patient is [place] VII. I will continue to follow along. Noble Georges PhD Nov 15, 2016 11:22
[2016-11-15] MEDS ORDERED: levETIRAcetam 500 MG TAB PO ONE (11:30)
[2016-11-15] MEDS ORDERED: FOSPHENYTOIN INJ 1,000 MGPE in SODIUM CHLORIDE 0.9% INJ 50 ML IV STA (15:54)
--- NOTE | 2016-11-15 16:25 | HHI.PR ---
Subjective Subjective Notes Pain controlled Patient reported he had seizure activity this AM stating he "felt funny" RN reports patient had arm myoclonus but no LOC- Keppra dose increased by Neurology RN called this afternoon and stated the patient had a 90 second seizure with LOC and postictal episode. Neurologist updated Objective Vitals/I&O Vital Signs Date Time Temp Pulse Resp B/P (MAP) Pulse Ox O2 Delivery O2 Flow Rate FiO2 11/15/16 12:24 18 11/15/16 12:00 97.7 65 147/84 (105) 98 11/14/16 09:58 21 11/12/16 12:50 Room Air 11/12/16 12:05 2 Labs Laboratory Tests Test 11/08/16 14:55 11/09/16 10:04 11/12/16 06:12 11/13/16 05:20 Bedside Hemoglobin 13.6 G/DL Bedside Hematocrit 40.0 % Prothrombin Time 12.3 SEC Prothromb Time International Ratio 1.1 RATIO Activated Partial Thromboplast Time 25.4 SEC Bedside Sodium 140 MMOL/L Bedside Potassium 4.4 MMOL/L Bedside Chloride 102 MMOL/L Bedside Blood Urea Nitrogen 11 MG/DL Bedside Creatinine 0.9 MG/DL Bedside Glucose 110 MG/DL Ethyl Alcohol Level LESS THAN 3 MG/DL Neutrophils (%) (Auto) 92.0 % Lymphocytes (%) (Auto) 6.9 % Monocytes (%) (Auto) 1.0 % Eosinophils (%) (Auto) 0.0 % Basophils (%) (Auto) 0.1 % Neutrophils # (Auto) 6.4 TH/MM3 Lymphocytes # (Auto) 0.5 TH/MM3 Monocytes # (Auto) 0.1 TH/MM3 Eosinophils # (Auto) 0.0 TH/MM3 Basophils # (Auto) 0.0 TH/MM3 CBC Comment DIFF FINAL Differential Comment Blood Urea Nitrogen 13 MG/DL 17 MG/DL Creatinine 0.76 MG/DL 0.77 MG/DL Random Glucose 118 MG/DL 106 MG/DL Total Protein 7.7 GM/DL Albumin 4.0 GM/DL Calcium Level 8.7 MG/DL 9.1 MG/DL Alkaline Phosphatase 62 U/L Aspartate Amino Transf (AST/SGOT) 6 U/L Alanine Aminotransferase (ALT/SGPT) 18 U/L Total Bilirubin 0.8 MG/DL Sodium Level 137 MEQ/L 139 MEQ/L Potassium Level 3.8 MEQ/L 3.6 MEQ/L Chloride Level 108 MEQ/L 105 MEQ/L Carbon Dioxide Level 22.0 MEQ/L 28.4 MEQ/L White Blood Count 10.8 TH/MM3 Red Blood Count 4.83 MIL/MM3 Mean Corpuscular Volume 85.4 FL Mean Corpuscular Hemoglobin 29.1 PG Mean Corpuscular Hemoglobin Concent 34.0 % Red Cell Distribution Width 12.5 % Platelet Count 302 TH/MM3 Mean Platelet Volume 8.6 FL Anion Gap 6 MEQ/L Estimat Glomerular Filtration Rate 114 ML/MIN Hemoglobin 12.6 GM/DL Hematocrit 37.2 % Radiology Last Impressions Pelvis X-Ray 11/12/16 0000 Signed Impressions: Service Date/Time: Saturday, November 12, 2016 11:27 - CONCLUSION: Fluoroscopic images during placement of plate and screws along the pubic symphysis. There is mild diastases. Raul Suarez MD Thoracic Spine CT 11/08/16 1504 Signed Impressions: Service Date/Time: Tuesday, November 08, 2016 15:11 - CONCLUSION: 1. Minimal degenerative changes in the mid and lower dorsal spine with small marginal spurs. 2. No fracture. Spinal canal is patent throughout. Jason Phillips MD Lumbar Spine CT 11/08/16 1504 Signed Impressions: Service Date/Time: Tuesday, November 08, 2016 15:11 - CONCLUSION: No acute lumbar spine abnormality is identified. Omid Kincaid MD Head CT 11/08/16 1504 Signed Impressions: Service Date/Time: Tuesday, November 08, 2016 15:03 - CONCLUSION: Negative for acute traumatic injury. Tyrel Mcelroy MD FACR Chest X-Ray 11/08/16 1504 Signed Impressions: Service Date/Time: Tuesday, November 08, 2016 14:47 - CONCLUSION: No acute finding is identified. Omid Kincaid MD Chest CT 11/08/16 1504 Signed Impressions: Service Date/Time: Tuesday, November 08, 2016 15:11 - CONCLUSION: Negative for acute traumatic injury.. Tyrel Mcelroy MD FACR Cervical Spine CT 11/08/16 1504 Signed Impressions: Service Date/Time: Tuesday, November 08, 2016 15:03 - CONCLUSION: No acute cervical spine abnormality is identified. 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 Correlation suggested Negative for acute traumatic injury. Tyrel Mcelroy MD FACR Narrative Exam GENERAL: 36 year old well-nourished, well developed male lying in bed. SKIN: Warm and dry. HEAD: Atraumatic. Normocephalic. ENT: No nasal bleeding or discharge. Mucous membranes pink and moist. NECK: Trachea midline. No JVD. CARDIOVASCULAR: Regular rate and rhythm. RESPIRATORY: No accessory muscle use. Lungs clear to auscultation. Breath sounds equal bilaterally. GASTROINTESTINAL: Abdomen soft, non-tender, nondistended. + BS. MUSCULOSKELETAL: Extremities without cyanosis, or edema. Pain with palpation over pubic bone. MAEW. NEUROLOGICAL: Awake and alert. Normal speech. A/P Problem List: (1) Sprain of symphysis pubis ICD Codes: S33.8XXA - Sprain of other parts of lumbar spine and pelvis, initial encounter Status: Acute (2) Concussion with brief (less than one hour) loss of consciousness ICD Codes: S06.0X9A - Concussion with loss of consciousness of unspecified duration, initial encounter Status: Acute (3) Post traumatic seizure ICD Codes: R56.1 - Post traumatic seizures Status: Acute Assessment and Plan ROBIN[place]: Fell approximately 5-6 ft off a ladder landing on his buttocks and striking his head. ? LOC. Unable to move his leg. Tonic-clonic seizure while en route to hospital. INJURIES: Diastases pubic symphysis Concussion Diet: Regular Pulm: IS Pain: Ideal, IV Morphine Activity: OOB. PT and OT ordered (50% WB BLE) GI: Pepcid Bowel: Carli-colace, Lactulose PRN. LBM 11/12 DVT: SCDs, Lovenox 40 BID Diastases pubic symphysis Orthopedics consulted 11/12: ORIF pubic symphysis 50% Weightbearing BLE Pain control OOB- PT and OT ordered Lovenox Concussion with seizure Neurologist consulted Seizure precautions EEG ordered today Keppra increased to 1000mg q8H Dilantin level pending Repeat CT Brain Neuro checks Avoid second head injury Post-concussive education Hospitalist consulted to assist with medical management. Plan of care discussed with patient and at bedside. Case management consulted to assist with discharge planning. Problem Qualifiers (1) Sprain of symphysis pubis: Qualified Codes: S33.8XXA - Sprain of other parts of lumbar spine and pelvis, initial encounter Remington Melton [facility] Nov 15, 2016 16:25
--- NOTE | 2016-11-15 16:49 | HHI.PR ---
Review/Management Diagnosis s/p trauma from fall with sz---recurrent SZ Plan add cerebyx for recurrent SZ. Diagnosis/Plan: Subjective Subjective Comments Pt had generalized sz this am. Keppra increased to 1000 mg tid but had second SZ this afternoon Active Medications Current Medications Medications (Trade) Dose Ordered Sig/Kasi Route Start Time Stop Time Status Last Admin (Pepcid) 20 mg Q12HR PO 11/08/16 21:00 11/15/16 09:39 (Ativan Inj) 1 mg Q4H PRN IV PUSH 11/08/16 17:00 11/15/16 13:15 (NS Flush) 2 ml UNSCH PRN IV FLUSH 11/08/16 17:45 (Vasotec Inj) 1.25 mg Q8H PRN IV 11/08/16 17:45 (Zofran Inj) 4 mg Q6H PRN IV 11/08/16 17:45 (Tylenol) 650 mg Q4H PRN PO 11/08/16 17:45 (Carli-Colace) 1 tab BID PO 11/08/16 21:00 11/15/16 09:39 (Lactulose Liq) 30 ml DAILY PO 11/11/16 12:00 11/13/16 12:00 (Milk Of Magnesia Liq) 30 ml HS PO 11/11/16 21:00 11/14/16 21:07 Lactated Ringer's 1,000 ml @ 100 mls/hr Q10H IV 11/12/16 11:36 11/14/16 03:33 (Lovenox Inj) 30 mg Q12H SQ 11/13/16 01:00 11/15/16 13:17 ([place] 10-325 Mg) 1 tab Q3H PRN PO 11/12/16 11:45 11/15/16 11:15 (Morphine Inj) 4 mg Q3H PRN IV PUSH 11/12/16 11:45 (Decadron Inj) 4 mg Q8H IV PUSH 11/12/16 20:00 11/15/16 11:47 (Keppra) 1,000 mg Q8H PO 11/15/16 20:00 (Cerebyx Inj) 100 mgpe Q8HR IV 11/15/16 22:00 Allergies Allergies Coded Allergies No Known Allergies (Unverified11/08/16) Exam I&O / VS 11/15/16 11/15/16 11/16/16 14:59 22:59 06:59 Intake Total 360 ml Output Total 500 ml Balance -140 ml Intake Oral 360 ml Output Urine Total 500 ml Vital Signs Date Time Temp Pulse Resp B/P (MAP) Pulse Ox O2 Delivery O2 Flow Rate FiO2 11/15/16 12:24 18 11/15/16 12:00 97.7 65 20 147/84 (105) 98 11/15/16 08:58 99 11/15/16 08:00 98.2 56 20 117/65 (82) 97 11/15/16 05:00 97.5 59 18 112/70 (84) 96 11/15/16 00:00 98.0 64 17 115/66 (82) 97 11/14/16 21:15 98.1 58 18 109/60 (76) 98 Exam Comments alert, speech normal CN intact MOTOR--generalized weakness with no focal weakness Bacilio Gomez PhD Nov 15, 2016 16:49
--- NOTE | 2016-11-15 18:06 | MG ---
cc: CHICHI BULL Lab No: Date: 11/15/2016 Age: Sex: M Race: TEST NUMBER [id number] TECHNIQUE A 17 channel EEG. DESCRIPTION The background rhythm reveals mild slowing in the theta range at roughly 6 Hz. There does seem to be some sleep spindles present. Occasional muscle artifact is seen. There are some vertex sharp waves present consistent with normal sleep. No lateralizing features are seen. Later in the tracing a normal alpha rhythm is obtained. Photic stimulation results in a fairly well-developed driving response. There are no epileptiform features. INTERPRETATION Normal EEG both in the awake and asleep state. MD VAMSHI Campbell/OSMAN /5:46 PM /5:49 PM
--- NOTE | 2016-11-15 19:09 | PD.CONS ---
HPI Service [facility] Hospitalists Consult Requested By NATASHA Abraham Reason for Consult Medical Management Primary Care Physician Unknown Diagnoses: (1) Post traumatic seizure (2) Weakness History of Present Illness Mr. Huddleston is 36 years old, with history of a single seizure as a teenager. Mr. Huddleston reported that on 11/08/16 he went to his primary care doctor and was given a "clean bill of health" and that "all my labs were normal except my vitamin D level which was low." Patient stated that he was to address this issue with [id number] vitamins. He had return to work and was moving a box of records into an elevated location requiring a ladder. Mr. huddleston said that he was approximately 6 feet up the air when the box shifted on her shoulder and he was unable to balance himself and fell backwards into a concrete floor. He denied loss of consciousness. He was subsequently transported to [facility] as a level I trauma injury she had a hip injury and decreased use of his right leg. He was subsequently diagnosed with pubic symphysis diastases and underwent surgical repair for that injury. Patient stated that since surgery has significant weakness with the right leg. He also noted that at times he requires assistance moving his left leg and that he requests nursing staff to "pick it up and move it". Early on the morning of 11/15/16 Mr. huddleston had a seizure. He reported having a subsequent one later in the morning. Both events were similar in that he had a warm sensation that spread throughout his body his eyes, "started shaking", and he reportedly was starting to bite on his tongue right side of his mouth. Neurology team that is called with his care was was contacted and they initiated coverage with Cerebyx injection 100 mg every 8 hours IV. The hospitalist team was consulted to medically manage this patient's issues. Review of Systems Constitutional: COMPLAINS OF: Fatigue, Dizziness Endocrine: DENIES: Polyuria Eyes: COMPLAINS OF: Double Vision, DENIES: Eye inflammation Ears, nose, mouth, throat: DENIES: Tinnitus, Hearing loss, Vertigo, Throat pain , Epistaxis Respiratory: DENIES: Apneas, Hemoptysis, Shortness of breath Cardiovascular: DENIES: Chest pain, Palpitations, Syncope Gastrointestinal: DENIES: Abdominal pain, Black stools, Bloody stools Genitourinary: DENIES: Urinary frequency, Urinary incontinence, Dysuria Musculoskeletal: COMPLAINS OF: Joint pain, Back pain Hematologic/lymphatic: DENIES: Lymphadenopathy Immunologic/allergic: DENIES: Urticaria Neurologic: COMPLAINS OF: Seizures, Poor Balance, DENIES: Speech Problems, Tremor Psychiatric: DENIES: Anxiety, Confusion, Mood changes, Depression Past Family Social History Allergies: Coded Allergies: No Known Allergies (Unverified , 11/08/16) Past Medical History Sugar 1 as a teenager. Past Surgical History Bladder stimulator inserted in 2009 Reported Medications Reported Meds & Active Scripts Active Xarelto (Rivaroxaban) 10 Mg Tab 10 Mg PO DAILY 14 Days Hydrocodone-Acetaminophen 7.5-325 mg Tab 1 Tab PO Q4H PRN Senna Plus 8.6-50 mg (Sennosides-Docusate Sodium) 8.6 Mg-50 Mg Tab 1 Tab PO BID Keppra (Levetiracetam) 500 Mg Tab 500 Mg PO Q12HR Active Ordered Medications Current Medications Medications (Trade) Dose Ordered Sig/Kasi Route Start Time Stop Time Status Last Admin (Pepcid) 20 mg Q12HR PO 11/08/16 21:00 11/15/16 09:39 (Ativan Inj) 1 mg Q4H PRN IV PUSH 11/08/16 17:00 11/15/16 13:15 (NS Flush) 2 ml UNSCH PRN IV FLUSH 11/08/16 17:45 (Vasotec Inj) 1.25 mg Q8H PRN IV 11/08/16 17:45 (Zofran Inj) 4 mg Q6H PRN IV 11/08/16 17:45 (Tylenol) 650 mg Q4H PRN PO 11/08/16 17:45 (Lactulose Liq) 30 ml DAILY PO 11/11/16 12:00 11/13/16 12:00 (Milk Of Magnesia Liq) 30 ml HS PO 11/11/16 21:00 11/14/16 21:07 Lactated Ringer's 1,000 ml @ 100 mls/hr Q10H IV 11/12/16 11:36 11/14/16 03:33 (Lovenox Inj) 30 mg Q12H SQ 11/13/16 01:00 11/15/16 13:17 ([place] 10-325 Mg) 1 tab Q3H PRN PO 11/12/16 11:45 11/15/16 11:15 (Morphine Inj) 4 mg Q3H PRN IV PUSH 11/12/16 11:45 (Decadron Inj) 4 mg Q8H IV PUSH 11/12/16 20:00 11/15/16 11:47 (Keppra) 1,000 mg Q8H PO 11/15/16 20:00 (Cerebyx Inj) 100 mgpe Q8HR IV 11/15/16 22:00 (Carli-Colace) 1 tab BID PO 11/15/16 21:00 Family History Patient reported maternal and paternal sides of the family are positive for various cancers, diabetes, and lung diseases. Patient reported his mother had part of a lung removed 2 years ago due to lung cancer. Social History Patient denied lifelong smoking/nicotine use history. Illicit/recreational drug usage was denied. Alcohol use was denied. Patient is . 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 He stated he is no longer around chemicals for work as he was in the past. Physical Exam Vital Signs Vital Signs Date Time Temp Pulse Resp B/P (MAP) Pulse Ox O2 Delivery O2 Flow Rate FiO2 11/15/16 16:00 98.1 78 20 125/58 (80) 95 11/15/16 12:24 18 11/15/16 12:00 97.7 65 20 147/84 (105) 98 11/15/16 08:58 99 11/15/16 08:00 98.2 56 20 117/65 (82) 97 11/15/16 05:00 97.5 59 18 112/70 (84) 96 11/15/16 00:00 98.0 64 17 115/66 (82) 97 11/14/16 21:15 98.1 58 18 109/60 (76) 98 Physical Exam GENERAL: This is a well-nourished, well-developed patient, in no apparent distress. SKIN: No rashes, ecchymoses or lesions. Cool and dry. No obvious rashes HEAD: Atraumatic. Normocephalic. EYES: Pupils equal round and reactive. Extraocular motions intact. No scleral icterus. No injection or drainage. ENT: Nose without bleeding or purulent drainage. Airway patent. Tongue is midline NECK: Trachea midline. No lymphadenopathy. Supple and nontender. CARDIOVASCULAR: Regular rate and rhythm without murmurs, gallops, or rubs. S1 and S2 no S3 or S4 no heave or thrill RESPIRATORY: Clear to auscultation. Breath sounds equal bilaterally. No wheezes , rales, or rhonchi. GASTROINTESTINAL: Abdomen soft, tender, nondistended. Mild abdominal tenderness MUSCULOSKELETAL: Extremities without clubbing, cyanosis, or edema. No joint tenderness, effusion, or edema noted. Generalized weakness and bilateral lower extremities worse on the right than the left NEUROLOGICAL: Awake and alert. Cranial nerves II through XII intact. Motor and sensory grossly within normal limits. Right leg weakness noted. Speech was clear and fluent. Insight and judgment is good mood and behaviors appropriate Laboratory Laboratory Tests Test 11/13/16 05:20 Hemoglobin 12.6 GM/DL Hematocrit 37.2 % Result Diagram: 11/13/16 0520 11/12/16 0612 Imaging Last Impressions Pelvis X-Ray 11/12/16 0000 Signed Impressions: Service Date/Time: Saturday, November 12, 2016 11:27 - CONCLUSION: Fluoroscopic images during placement of plate and screws along the pubic symphysis. There is mild diastases. Raul Suarez MD Thoracic Spine CT 11/08/16 1504 Signed Impressions: Service Date/Time: Tuesday, November 08, 2016 15:11 - CONCLUSION: 1. Minimal degenerative changes in the mid and lower dorsal spine with small marginal spurs. 2. No fracture. Spinal canal is patent throughout. Jason Phillips MD Lumbar Spine CT 11/08/16 1504 Signed Impressions: Service Date/Time: Tuesday, November 08, 2016 15:11 - CONCLUSION: No acute lumbar spine abnormality is identified. Omid Kincaid MD Head CT 11/08/16 1504 Signed Impressions: Service Date/Time: Tuesday, November 08, 2016 15:03 - CONCLUSION: Negative for acute traumatic injury. Tyrel Mcelroy MD FACR Chest X-Ray 11/08/16 1504 Signed Impressions: Service Date/Time: Tuesday, November 08, 2016 14:47 - CONCLUSION: No acute finding is identified. Omid Kincaid MD Chest CT 11/08/16 1504 Signed Impressions: Service Date/Time: Tuesday, November 08, 2016 15:11 - CONCLUSION: Negative for acute traumatic injury.. Tyrel Mcelroy MD FACR Cervical Spine CT 11/08/16 1504 Signed Impressions: Service Date/Time: Tuesday, November 08, 2016 15:03 - CONCLUSION: No acute cervical spine abnormality is identified. 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 Correlation suggested Negative for acute traumatic injury. Tyrel Mcelroy MD FACR Assessment and Plan Problem List: (1) Post traumatic seizure ICD Code: R56.1 - Post traumatic seizures Status: Acute (2) Weakness ICD Code: R53.1 - Weakness Status: Acute Assessment and Plan Mr. Huddleston is 36 years old, with history of a single seizure as a teenager. Posttraumatic seizures -Being followed by neurology. -Keppra 1000 mg every 8 hours by mouth -Cerebyx injection 100 mg Q 8 hr IV -Lorazepam 1 mg every 4 hours when necessary IV for seizures Status post pubic symphysis sprain repair. -Being followed by orthopedics. -Pain management per orthopedics. -[place] 10-325 for pain greater than 3 -Morphine 4 mg every 3 hours when necessary IV for breakthrough pain. DVT prophylaxis -SCDs -Lovenox 30 mg every 12 hours SQ GI prophylaxis -Famotidine 20 mg every 12 hours by mouth The exam, history, and the medical decision-making described in the above note were completed with the assistance of the mid-level provider. I reviewed and agree with the findings presented. I attest that I had a [id number] encounter with the patient on the same day, and personally performed and documented my assessment and findings in the medical record. Code Status Full code Discussed Condition With Patient and Frank Rodriguez Jr. Nov 15, 2016 19:09 Tyrel Dhillon DO Nov 15, 2016 19:31
--- NOTE | 2016-11-15 19:23 | RADRPT ---
EXAM DATE/TIME: 11/15/2016 19:12 [place] COMPARISON: CT BRAIN W/O CONTRAST, November 08, 2016, 15:03. INDICATIONS : Follow up for possible intracranial injury. RADIATION DOSE: 49.99 CTDIvol (mGy) MEDICAL HISTORY : None SURGICAL HISTORY : None. ENCOUNTER: Subsequent ACUITY: 1 week PAIN SCALE: 6/10 LOCATION: cranial TECHNIQUE: Multiple contiguous axial images were obtained of the head. Using automated exposure control and adjustment of the mA and/or kV according to patient size, radiation dose was kept as low as reasonably achievable to obtain optimal diagnostic quality images. DICOM format image data is av ailable electronically for review and comparison. FINDINGS: CEREBRUM: The ventricles are normal for age. No evidence of midline shift, mass lesion, hemorrha ge or acute infarction. No extra-axial fluid collections are seen. POSTERIOR FOSSA: The cerebellum and brainstem are intact. The 4th ventricle is midline. The cer ebellopontine angle is unremarkable. EXTRACRANIAL: The visualized portion of the orbits is intact. SKULL: The calvaria is intact. No evidence of skull fracture. CONCLUSION: Negative for acute traumatic injury. Tyrel Mcelroy MD FACR on November 15, 2016 at 19:19 Board Certified Radiologist. This report was verified electronically.
[2016-11-15] MEDS ORDERED: levETIRAcetam 500 MG TAB PO SCH (21:00)
[2016-11-15] MEDS: MAGNESIUM HYDROXIDE SUSP 30 ML CUP PO SCH (21:00)
[2016-11-15] MEDS: FOSPHENYTOIN SODIUM 100 MG PE/2 ML VIAL IV SCH (21:13)
[2016-11-16] VITALS: BP 111/64; PULSE 75; RESP 18; TEMP 97.8; O2SAT 96
[2016-11-16] MEDS: ENOXAPARIN SODIUM 30 MG/0.3 ML SYRINGE SQ SCH ×2 (01:21→12:31)
[2016-11-16 04:00] VITALS: BP 105/55; PULSE 60; RESP 18; TEMP 97.9; O2SAT 96
[2016-11-16] MEDS: FOSPHENYTOIN SODIUM 100 MG PE/2 ML VIAL IV SCH ×3 (05:12→21:18)
[2016-11-16] MEDS: levETIRAcetam 500 MG TAB PO SCH ×3 (05:12→21:16)
[2016-11-16] MEDS: DEXAMETHASONE SOD PHOS 4 MG/ML VIAL IV PUSH SCH ×3 (05:17→21:18)
[2016-11-16] MEDS: ACETAMINOPHEN/HYDROcodone 325 MG/10 MG TAB PO PRN ×5 (05:18→23:02)
[2016-11-16] MEDS: LACTATED RINGER'S 1000 ML INJ 1,000 ML IV SCH ×2 (05:36→15:36)
[2016-11-16 08:00] VITALS: BP_SYST 115; BP_SYST 135; BP_DIAS 57; BP_DIAS 63; PULSE 59; PULSE 67; RESP 20; TEMP 98; TEMP 98.1; O2SAT 95; O2SAT 96
[2016-11-16] MEDS: LACTULOSE SYRUP 20 GM/30 ML CUP PO SCH (09:00)
[2016-11-16] MEDS: FAMOTIDINE 20 MG TAB PO SCH ×2 (09:45→21:17)
[2016-11-16] MEDS: DOCUSATE SODIUM 50 MG/SENNA 8.6 MG TAB PO SCH ×2 (09:45→21:17)
[2016-11-16 10:26] LABS: AUTOMATED NEUTROPHIL # 9.8 TH/MM3 (1.8-7.7); BASOPHIL % 0.1 % (0.0-2.0); HEMATOCRIT 39.9 % (39.0-51.0); HEMO FLAGS DIFF FINAL; LYMPH % 6.5 % (9.0-44.0); LYMPHOCYTE # 0.7 TH/MM3 (1.0-4.8); MEAN CELL VOLUME 85.6 FL (80.0-100.0); MEAN CORPUSCULAR HEMOGLOBIN 28.8 PG (27.0-34.0); MEAN CORPUSCULAR HGB CONC 33.7 % (32.0-36.0); MONO % 5.7 % (0.0-8.0); NEUT % 87.7 % (16.0-70.0); PLATELET COUNT 292 TH/MM3 (150-450); RED BLOOD COUNT 4.67 MIL/MM3 (4.50-5.90); RED CELL DISTRIBUTION WIDTH 12.3 % (11.6-17.2); WHITE BLOOD COUNT 11.2 TH/MM3 (4.0-11.0)
[2016-11-16 10:45] LABS: ALT (GPT) 23 U/L (12-78); ANION GAP 6 MEQ/L (5-15); AST (GOT) 8 U/L (15-37); BICARBONATE 28.4 MEQ/L (21.0-32.0); BLOOD UREA NITROGEN 16 MG/DL (7-18); CHLORIDE 102 MEQ/L (98-107); GLOMERULAR FILTRATION RATE 136 ML/MIN (>89); MAGNESIUM 2.2 MG/DL (1.5-2.5); POTASSIUM 3.9 MEQ/L (3.5-5.1); SODIUM (NA) 136 MEQ/L (136-145)
[2016-11-16 10:53] LABS: ALKALINE PHOSPHATASE 52 U/L (45-117); FREE T4 1.11 NG/DL (0.76-1.46); TOTAL BILIRUBIN ADULT 0.5 MG/DL (0.2-1.0)
[2016-11-16 11:31] LABS: HEMOGLOBIN A1a 1.1 %; HEMOGLOBIN A1b 0.8 %; HEMOGLOBIN Ao 85.2 %; HEMOGLOBIN F 1.6 %; HEMOGLOBIN LA1C 2.1 %; HEMOGLOBIN P3 3.5 %
--- NOTE | 2016-11-16 12:48 | HHI.PR ---
Subjective Subjective Notes No further seizure activity Ambulated halls with PT today Objective Vitals/I&O Vital Signs Date Time Temp Pulse Resp B/P (MAP) Pulse Ox O2 Delivery O2 Flow Rate FiO2 11/16/16 12:32 18 11/16/16 08:00 98.0 67 115/57 (76) 95 11/14/16 09:58 21 11/12/16 12:50 Room Air 11/12/16 12:05 2 Labs Laboratory Tests Test 11/16/16 09:45 White Blood Count 11.2 Red Blood Count 4.67 Hemoglobin 13.5 Hematocrit 39.9 Mean Corpuscular Volume 85.6 Mean Corpuscular Hemoglobin 28.8 Mean Corpuscular Hemoglobin Concent 33.7 Red Cell Distribution Width 12.3 Platelet Count 292 Mean Platelet Volume 8.7 Neutrophils (%) (Auto) 87.7 Lymphocytes (%) (Auto) 6.5 Monocytes (%) (Auto) 5.7 Eosinophils (%) (Auto) 0.0 Basophils (%) (Auto) 0.1 Neutrophils # (Auto) 9.8 Lymphocytes # (Auto) 0.7 Monocytes # (Auto) 0.6 Eosinophils # (Auto) 0.0 Basophils # (Auto) 0.0 CBC Comment DIFF FINAL Differential Comment Blood Urea Nitrogen 16 Creatinine 0.66 Random Glucose 108 Total Protein 6.7 Albumin 3.2 Calcium Level 8.3 Phosphorus Level 3.2 Magnesium Level 2.2 Alkaline Phosphatase 52 Aspartate Amino Transf (AST/SGOT) 8 Alanine Aminotransferase (ALT/SGPT) 23 Total Bilirubin 0.5 Sodium Level 136 Potassium Level 3.9 Chloride Level 102 Carbon Dioxide Level 28.4 Anion Gap 6 Estimat Glomerular Filtration Rate 136 Hemoglobin A1c 5.3 Free Thyroxine 1.11 Thyroid Stimulating Hormone 3rd Gen 0.200 Phenytoin (Dilantin) Level 7.3 Radiology Last Impressions Pelvis X-Ray 11/12/16 0000 Signed Impressions: Service Date/Time: Saturday, November 12, 2016 11:27 - CONCLUSION: Fluoroscopic images during placement of plate and screws along the pubic symphysis. There is mild diastases. Raul Suarez MD Thoracic Spine CT 11/08/16 1504 Signed Impressions: Service Date/Time: Tuesday, November 08, 2016 15:11 - CONCLUSION: 1. Minimal degenerative changes in the mid and lower dorsal spine with small marginal spurs. 2. No fracture. Spinal canal is patent throughout. Jason Phillips MD Lumbar Spine CT 11/08/16 1504 Signed Impressions: Service Date/Time: Tuesday, November 08, 2016 15:11 - CONCLUSION: No acute lumbar spine abnormality is identified. Omid Kincaid MD Head CT 11/08/16 1504 Signed Impressions: Service Date/Time: Tuesday, November 08, 2016 15:03 - CONCLUSION: Negative for acute traumatic injury. Tyrel Mcelroy MD FACR Chest X-Ray 11/08/16 1504 Signed Impressions: Service Date/Time: Tuesday, November 08, 2016 14:47 - CONCLUSION: No acute finding is identified. Omid Kincaid MD Chest CT 11/08/16 1504 Signed Impressions: Service Date/Time: Tuesday, November 08, 2016 15:11 - CONCLUSION: Negative for acute traumatic injury.. Tyrel Mcelroy MD FACR Cervical Spine CT 11/08/16 1504 Signed Impressions: Service Date/Time: Tuesday, November 08, 2016 15:03 - CONCLUSION: No acute cervical spine abnormality is identified. 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 Correlation suggested Negative for acute traumatic injury. Tyrel Mcelroy MD FACR Narrative Exam GENERAL: 36 year old well-nourished, well developed male lying in bed. SKIN: Warm and dry. HEAD: Atraumatic. Normocephalic. ENT: No nasal bleeding or discharge. Mucous membranes pink and moist. NECK: Trachea midline. No JVD. CARDIOVASCULAR: Regular rate and rhythm. RESPIRATORY: No accessory muscle use. Lungs clear to auscultation. Breath sounds equal bilaterally. GASTROINTESTINAL: Abdomen soft, non-tender, nondistended. + BS. MUSCULOSKELETAL: Extremities without cyanosis, or edema. Pain with palpation over pubic bone. MAEW. + peripheral pulses x4. NEUROLOGICAL: Awake and alert. Normal speech. A/P Problem List: (1) Sprain of symphysis pubis ICD Codes: S33.8XXA - Sprain of other parts of lumbar spine and pelvis, initial encounter Status: Acute (2) Concussion with brief (less than one hour) loss of consciousness ICD Codes: S06.0X9A - Concussion with loss of consciousness of unspecified duration, initial encounter Status: Acute (3) Post traumatic seizure ICD Codes: R56.1 - Post traumatic seizures Status: Acute Assessment and Plan [place]: Fell approximately 5-6 ft off a ladder landing on his buttocks and striking his head. ? LOC. Unable to move his leg. Tonic-clonic seizure while en route to hospital. INJURIES: Diastases pubic symphysis Concussion Diet: Regular Pulm: IS Pain: Badger, IV Morphine Activity: OOB. PT and OT ordered (50% WB BLE) GI: Pepcid Bowel: Carli-colace, Lactulose PRN. LBM 11/16 DVT: SCDs, Lovenox 40 BID Diastases pubic symphysis Orthopedics consulted and cleared for discharge 11/12: ORIF pubic symphysis 50% Weightbearing BLE Pain control OOB- PT and OT ordered Lovenox F/U as outpatient Concussion with seizure Neurologist consulted Seizure precautions EEG- WNL Keppra increased to 1000mg q8H and IV Cerebyx added Dilantin level pending Repeat CT Brain- negative Neuro checks Avoid second head injury Post-concussive education Hospitalist consulted to assist with medical management. Plan of care discussed with patient and at bedside. Case management consulted to assist with discharge planning. Plan to DC to rehab in 1-2 days. The exam, history, and the medical decision-making described in the above note were completed with the assistance of the mid-level provider. I reviewed and agree with the findings presented. I attest that I had a [id number] encounter with the patient on the same day, and personally performed and documented my assessment and findings in the medical record. Problem Qualifiers (1) Sprain of symphysis pubis: Qualified Codes: S33.8XXA - Sprain of other parts of lumbar spine and pelvis, initial encounter Remington Melton Nov 16, 2016 12:48 Darin Mcneal MD Dec 15, 2016 12:30
--- NOTE | 2016-11-16 13:32 | HHI.PR ---
Subjective Remarks Follow up seizures. No reported seizures today. Patient states that he feels weak and tired today. Worked with PT this morning. Denies cough, dyspnea, chest pain. Objective Vitals Vital Signs Date Time Temp Pulse Resp B/P (MAP) Pulse Ox O2 Delivery O2 Flow Rate FiO2 11/16/16 12:32 18 11/16/16 08:00 98.0 67 20 115/57 (76) 95 11/16/16 04:00 97.9 60 18 105/55 (72) 96 11/16/16 00:00 97.8 75 18 111/64 (80) 96 11/15/16 20:00 98.1 58 18 119/61 (80) 95 11/15/16 16:00 98.1 78 20 125/58 (80) 95 I/O 11/15/16 11/15/16 11/15/16 11/16/16 11/16/16 11/16/16 07:00 15:00 23:00 07:00 15:00 23:00 Intake Total 900 ml 360 ml 70 ml Output Total 1200 ml 500 ml 550 ml Balance -300 ml -140 ml 70 ml -550 ml Intake Oral 900 ml 360 ml IV Total 70 ml Output Urine Total 1200 ml 500 ml 550 ml # Voids 3 7 # Bowel Movements 0 1 1 Result Diagram: 11/16/16 0945 11/16/16 0945 Imaging Last Impressions Head CT 11/15/16 0000 Signed Impressions: Service Date/Time: Tuesday, November 15, 2016 19:12 - CONCLUSION: Negative for acute traumatic injury. Tyrel Mcelroy MD FACR Pelvis X-Ray 11/12/16 0000 Signed Impressions: Service Date/Time: Saturday, November 12, 2016 11:27 - CONCLUSION: Fluoroscopic images during placement of plate and screws along the pubic symphysis. There is mild diastases. Raul Suarez MD Thoracic Spine CT 11/08/16 1504 Signed Impressions: Service Date/Time: Tuesday, November 08, 2016 15:11 - CONCLUSION: 1. Minimal degenerative changes in the mid and lower dorsal spine with small marginal spurs. 2. No fracture. Spinal canal is patent throughout. Jason Phillips MD Lumbar Spine CT 11/08/16 1504 Signed Impressions: Service Date/Time: Tuesday, November 08, 2016 15:11 - CONCLUSION: No acute lumbar spine abnormality is identified. Omid Kincaid MD Chest X-Ray 11/08/16 1504 Signed Impressions: Service Date/Time: Tuesday, November 08, 2016 14:47 - CONCLUSION: No acute finding is identified. Omid Kincaid MD Chest CT 11/08/16 1504 Signed Impressions: Service Date/Time: Tuesday, November 08, 2016 15:11 - CONCLUSION: Negative for acute traumatic injury.. Tyrel Mcelroy MD FACR Cervical Spine CT 11/08/16 1504 Signed Impressions: Service Date/Time: Tuesday, November 08, 2016 15:03 - CONCLUSION: No acute cervical spine abnormality is identified. 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 Correlation suggested Negative for acute traumatic injury. Tyrel Mcelroy MD FACR Objective Remarks General: No acute distress. Heart: Regular rate and rhythm. No murmur. Lungs: Clear to auscultation bilaterally. No wheezes, rales, or rhonchi. Breathing is nonlabored. Abdomen: Soft, nontender, nondistended. Extremities: No lower extremity edema. SCDs. Psych: Alert and oriented. Procedures 11/12/16 open reduction internal fixation pubic symphysis Urinary Catheter: No Vascular Central Line Catheter: No A/P Problem List: (1) Post traumatic seizure ICD Code: R56.1 - Post traumatic seizures Status: Acute (2) Weakness ICD Code: R53.1 - Weakness Status: Acute Assessment and Plan 1. Posttraumatic seizures: Appreciate neurology recommendations. Continue Keppra , Cerebyx. Ativan as needed. No further seizures today. 2. Status post ORIF of pubic symphysis: Management per orthopedic surgery. 3. GI prophylaxis: Famotidine. 4. DVT prophylaxis: Lovenox, SCDs. Ruben Fisher MD Nov 16, 2016 13:32
[2016-11-16 16:00] VITALS: BP 113/65; PULSE 55; RESP 20; TEMP 97.5; O2SAT 95
[2016-11-16 20:00] VITALS: BP 102/50; PULSE 57; RESP 18; TEMP 97.9; O2SAT 95
--- NOTE | 2016-11-16 21:26 | HHI.PR ---
Review/Management Diagnosis s/p trauma from fall with sz---recurrent SZ--stable with addition of cerebyx Plan increase cerebyx level Diagnosis/Plan: Subjective Subjective Comments No acute events reported No recurrent seizures Active Medications Current Medications Medications (Trade) Dose Ordered Sig/Kasi Route Start Time Stop Time Status Last Admin (Pepcid) 20 mg Q12HR PO 11/08/16 21:00 11/16/16 09:45 (Ativan Inj) 1 mg Q4H PRN IV PUSH 11/08/16 17:00 11/15/16 13:15 (NS Flush) 2 ml UNSCH PRN IV FLUSH 11/08/16 17:45 (Vasotec Inj) 1.25 mg Q8H PRN IV 11/08/16 17:45 (Zofran Inj) 4 mg Q6H PRN IV 11/08/16 17:45 (Tylenol) 650 mg Q4H PRN PO 11/08/16 17:45 (Lactulose Liq) 30 ml DAILY PO 11/11/16 12:00 11/13/16 12:00 (Milk Of Magnesia Liq) 30 ml HS PO 11/11/16 21:00 11/14/16 21:07 Lactated Ringer's 1,000 ml @ 100 mls/hr Q10H IV 11/12/16 11:36 11/14/16 03:33 (Lovenox Inj) 30 mg Q12H SQ 11/13/16 01:00 11/16/16 12:31 ([place] 10-325 Mg) 1 tab Q3H PRN PO 11/12/16 11:45 11/16/16 18:19 (Morphine Inj) 4 mg Q3H PRN IV PUSH 11/12/16 11:45 11/16/16 01:21 (Decadron Inj) 4 mg Q8H IV PUSH 11/12/16 20:00 11/16/16 12:32 (Keppra) 1,000 mg Q8H PO 11/15/16 20:00 11/16/16 12:31 (Cerebyx Inj) 100 mgpe Q8HR IV 11/15/16 22:00 11/16/16 14:13 (Carli-Colace) 1 tab BID PO 11/15/16 21:00 11/16/16 09:45 Allergies Allergies Coded Allergies No Known Allergies (Unverified9/18/17) Exam I&O / VS 11/16/16 11/16/16 11/17/16 15:00 23:00 07:00 Intake Total 480 ml Output Total 1450 ml 250 ml Balance -970 ml -250 ml Intake Oral 480 ml Output Urine Total 1450 ml 250 ml # Bowel Movements 1 Vital Signs Date Time Temp Pulse Resp B/P (MAP) Pulse Ox O2 Delivery O2 Flow Rate FiO2 11/16/16 16:00 97.5 55 20 113/65 (81) 95 11/16/16 12:32 18 11/16/16 08:00 98.0 67 20 115/57 (76) 95 11/16/16 04:00 97.9 60 18 105/55 (72) 96 11/16/16 00:00 97.8 75 18 111/64 (80) 96 Exam Comments alert, speech normal CN intact MOTOR--generalized weakness with no focal weakness Objective Micro and Labs Laboratory Tests Test 11/16/16 09:45 White Blood Count 11.2 Red Blood Count 4.67 Hemoglobin 13.5 Hematocrit 39.9 Mean Corpuscular Volume 85.6 Mean Corpuscular Hemoglobin 28.8 Mean Corpuscular Hemoglobin Concent 33.7 Red Cell Distribution Width 12.3 Platelet Count 292 Mean Platelet Volume 8.7 Neutrophils (%) (Auto) 87.7 Lymphocytes (%) (Auto) 6.5 Monocytes (%) (Auto) 5.7 Eosinophils (%) (Auto) 0.0 Basophils (%) (Auto) 0.1 Neutrophils # (Auto) 9.8 Lymphocytes # (Auto) 0.7 Monocytes # (Auto) 0.6 Eosinophils # (Auto) 0.0 Basophils # (Auto) 0.0 CBC Comment DIFF FINAL Differential Comment Blood Urea Nitrogen 16 Creatinine 0.66 Random Glucose 108 Total Protein 6.7 Albumin 3.2 Calcium Level 8.3 Phosphorus Level 3.2 Magnesium Level 2.2 Alkaline Phosphatase 52 Aspartate Amino Transf (AST/SGOT) 8 Alanine Aminotransferase (ALT/SGPT) 23 Total Bilirubin 0.5 Sodium Level 136 Potassium Level 3.9 Chloride Level 102 Carbon Dioxide Level 28.4 Anion Gap 6 Estimat Glomerular Filtration Rate 136 Hemoglobin A1c 5.3 Free Thyroxine 1.11 Thyroid Stimulating Hormone 3rd Gen 0.200 Phenytoin (Dilantin) Level 7.3 Bacilio Gomez PhD MD Nov 16, 2016 21:26
[2016-11-16] MEDS ORDERED: FOSPHENYTOIN SODIUM 100 MG PE/2 ML VIAL IV ONE (21:30)
[2016-11-16] MEDS: MAGNESIUM HYDROXIDE SUSP 30 ML CUP PO SCH (21:33)
[2016-11-16] MEDS ORDERED: FOSPHENYTOIN INJ 300 MGPE in SODIUM CHLORIDE 0.9% INJ 50 ML IV ONE (22:00)
[2016-11-17] VITALS: BP 107/57; PULSE 53; RESP 18; TEMP 97.9; O2SAT 95
[2016-11-17] MEDS: LACTATED RINGER'S 1000 ML INJ 1,000 ML IV SCH ×2 (01:40→08:28)
[2016-11-17] MEDS: ENOXAPARIN SODIUM 30 MG/0.3 ML SYRINGE SQ SCH ×2 (01:45→12:06)
[2016-11-17 04:00] VITALS: BP 131/52; PULSE 50; RESP 18; TEMP 98.4; O2SAT 96
[2016-11-17] MEDS: ACETAMINOPHEN/HYDROcodone 325 MG/10 MG TAB PO PRN ×3 (04:00→12:06)
[2016-11-17] MEDS: levETIRAcetam 500 MG TAB PO SCH ×2 (04:00→12:06)
[2016-11-17] MEDS: DEXAMETHASONE SOD PHOS 4 MG/ML VIAL IV PUSH SCH (04:00)
[2016-11-17] MEDS: FOSPHENYTOIN SODIUM 100 MG PE/2 ML VIAL IV SCH ×2 (05:51)
--- NOTE | 2016-11-17 06:43 | HHI.PR ---
Review/Management Diagnosis s/p trauma from fall with sz---recurrent SZ--stable with addition of cerebyx Plan stop cerebyx and start dilantin 200 mg po bid continue keppra 1000 mg po tid Diagnosis/Plan: Subjective Subjective Comments No acute events reported No seizures Active Medications Current Medications Medications (Trade) Dose Ordered Sig/Kasi Route Start Time Stop Time Status Last Admin (Pepcid) 20 mg Q12HR PO 11/08/16 21:00 11/16/16 21:17 (Ativan Inj) 1 mg Q4H PRN IV PUSH 11/08/16 17:00 11/15/16 13:15 (NS Flush) 2 ml UNSCH PRN IV FLUSH 11/08/16 17:45 (Vasotec Inj) 1.25 mg Q8H PRN IV 11/08/16 17:45 (Zofran Inj) 4 mg Q6H PRN IV 11/08/16 17:45 (Tylenol) 650 mg Q4H PRN PO 11/08/16 17:45 (Lactulose Liq) 30 ml DAILY PO 11/11/16 12:00 11/13/16 12:00 (Milk Of Magnesia Liq) 30 ml HS PO 11/11/16 21:00 11/14/16 21:07 Lactated Ringer's 1,000 ml @ 100 mls/hr Q10H IV 11/12/16 11:36 11/14/16 03:33 (Lovenox Inj) 30 mg Q12H SQ 11/13/16 01:00 11/17/16 01:45 ([place] 10-325 Mg) 1 tab Q3H PRN PO 11/12/16 11:45 11/17/16 04:00 (Morphine Inj) 4 mg Q3H PRN IV PUSH 11/12/16 11:45 11/16/16 01:21 (Decadron Inj) 4 mg Q8H IV PUSH 11/12/16 20:00 11/17/16 04:00 (Keppra) 1,000 mg Q8H PO 11/15/16 20:00 11/17/16 04:00 (Carli-Colace) 1 tab BID PO 11/15/16 21:00 11/16/16 21:17 (Cerebyx Inj) 100 mgpe Q6HR IV 11/17/16 00:00 11/17/16 05:51 Allergies Allergies Coded Allergies No Known Allergies (Unverified11/08/16) Exam I&O / VS Vital Signs Date Time Temp Pulse Resp B/P (MAP) Pulse Ox O2 Delivery O2 Flow Rate FiO2 11/17/16 04:00 98.4 50 18 131/52 (78) 96 11/17/16 00:00 97.9 53 18 107/57 (74) 95 11/16/16 20:00 97.9 57 18 102/50 (67) 95 11/16/16 16:00 97.5 55 20 113/65 (81) 95 11/16/16 12:32 18 11/16/16 08:00 98.0 67 20 115/57 (76) 95 Exam Comments alert, speech normal CN intact MOTOR--generalized weakness with no focal weakness Objective Micro and Labs Laboratory Tests Test 11/16/16 09:45 11/17/16 05:15 White Blood Count 11.2 Red Blood Count 4.67 Hemoglobin 13.5 Hematocrit 39.9 Mean Corpuscular Volume 85.6 Mean Corpuscular Hemoglobin 28.8 Mean Corpuscular Hemoglobin Concent 33.7 Red Cell Distribution Width 12.3 Platelet Count 292 Mean Platelet Volume 8.7 Neutrophils (%) (Auto) 87.7 Lymphocytes (%) (Auto) 6.5 Monocytes (%) (Auto) 5.7 Eosinophils (%) (Auto) 0.0 Basophils (%) (Auto) 0.1 Neutrophils # (Auto) 9.8 Lymphocytes # (Auto) 0.7 Monocytes # (Auto) 0.6 Eosinophils # (Auto) 0.0 Basophils # (Auto) 0.0 CBC Comment DIFF FINAL Differential Comment Blood Urea Nitrogen 16 Creatinine 0.66 Random Glucose 108 Total Protein 6.7 Albumin 3.2 Calcium Level 8.3 Phosphorus Level 3.2 Magnesium Level 2.2 Alkaline Phosphatase 52 Aspartate Amino Transf (AST/SGOT) 8 Alanine Aminotransferase (ALT/SGPT) 23 Total Bilirubin 0.5 Sodium Level 136 Potassium Level 3.9 Chloride Level 102 Carbon Dioxide Level 28.4 Anion Gap 6 Estimat Glomerular Filtration Rate 136 Hemoglobin A1c 5.3 Free Thyroxine 1.11 Thyroid Stimulating Hormone 3rd Gen 0.200 Phenytoin (Dilantin) Level 7.3 10.4 Bacilio Gomez PhD Nov 17, 2016 06:43
[2016-11-17] MEDS ORDERED: DILA100C PO (07:53)
[2016-11-17] MEDS ORDERED: LEVE500 PO (07:53)
[2016-11-17 08:00] VITALS: BP 116/59; PULSE 83; RESP 16; TEMP 98.3; O2SAT 95
[2016-11-17] MEDS: LACTULOSE SYRUP 20 GM/30 ML CUP PO SCH (08:28)
[2016-11-17] MEDS: DOCUSATE SODIUM 50 MG/SENNA 8.6 MG TAB PO SCH (08:28)
[2016-11-17] MEDS: FAMOTIDINE 20 MG TAB PO SCH (08:28)
[2016-11-17] MEDS ORDERED: PHENYTOIN SODIUM 100 MG CAP PO SCH (09:00)
--- NOTE | 2016-11-17 11:21 | HHI.DS ---
Discharge Summary Admission Date Nov 08, 2016 at 15:42 Discharge Date: Nov 17, 2016 Admitting Diagnosis leg weakness, seizure (1) Sprain of symphysis pubis ICD Codes: S33.8XXA - Sprain of other parts of lumbar spine and pelvis, initial encounter Status: Acute (2) Concussion with brief (less than one hour) loss of consciousness ICD Codes: S06.0X9A - Concussion with loss of consciousness of unspecified duration, initial encounter Status: Acute (3) Post traumatic seizure ICD Codes: R56.1 - Post traumatic seizures Status: Acute Brief History S/P Trauma: Fall CBC/BMP: 11/16/16 0945 11/16/16 0945 Significant Findings Laboratory Tests Test 11/16/16 09:45 11/17/16 05:15 White Blood Count 11.2 TH/MM3 (4.0-11.0) Neutrophils (%) (Auto) 87.7 % (16.0-70.0) Lymphocytes (%) (Auto) 6.5 % (9.0-44.0) Neutrophils # (Auto) 9.8 TH/MM3 (1.8-7.7) Lymphocytes # (Auto) 0.7 TH/MM3 (1.0-4.8) Random Glucose 108 MG/DL (74-106) Albumin 3.2 GM/DL (3.4-5.0) Calcium Level 8.3 MG/DL (8.5-10.1) Aspartate Amino Transf (AST/SGOT) 8 U/L (15-37) Thyroid Stimulating Hormone 3rd Gen 0.200 uIU/ML (0.358-3.740) Phenytoin (Dilantin) Level 7.3 MCG/ML (10.0-20.0) Imaging Last Impressions Head CT 11/15/16 0000 Signed Impressions: Service Date/Time: Tuesday, November 15, 2016 19:12 - CONCLUSION: Negative for acute traumatic injury. Tyrel Mcelroy MD FACR Pelvis X-Ray 11/12/16 0000 Signed Impressions: Service Date/Time: Saturday, November 12, 2016 11:27 - CONCLUSION: Fluoroscopic images during placement of plate and screws along the pubic symphysis. There is mild diastases. Raul Suarez MD Thoracic Spine CT 11/08/16 1504 Signed Impressions: Service Date/Time: Tuesday, November 08, 2016 15:11 - CONCLUSION: 1. Minimal degenerative changes in the mid and lower dorsal spine with small marginal spurs. 2. No fracture. Spinal canal is patent throughout. Jason Phillips MD Lumbar Spine CT 11/08/16 1504 Signed Impressions: Service Date/Time: Tuesday, November 08, 2016 15:11 - CONCLUSION: No acute lumbar spine abnormality is identified. Omid Kincaid MD Chest X-Ray 11/08/16 1504 Signed Impressions: Service Date/Time: Tuesday, November 08, 2016 14:47 - CONCLUSION: No acute finding is identified. Omid Kincaid MD Chest CT 11/08/16 1504 Signed Impressions: Service Date/Time: Tuesday, November 08, 2016 15:11 - CONCLUSION: Negative for acute traumatic injury.. Tyrle Mcelroy MD FACR Cervical Spine CT 11/08/16 1504 Signed Impressions: Service Date/Time: Tuesday, November 08, 2016 15:03 - CONCLUSION: No acute cervical spine abnormality is identified. 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 Correlation suggested Negative for acute traumatic injury. Tyrel Mcelroy MD FACR PE at Discharge GENERAL: 36 year old well-nourished, well developed male lying in bed. SKIN: Warm and dry. HEAD: Atraumatic. Normocephalic. ENT: No nasal bleeding or discharge. Mucous membranes pink and moist. NECK: Trachea midline. No JVD. CARDIOVASCULAR: Regular rate and rhythm. RESPIRATORY: No accessory muscle use. Lungs clear to auscultation. Breath sounds equal bilaterally. GASTROINTESTINAL: Abdomen soft, non-tender, nondistended. + BS. MUSCULOSKELETAL: Extremities without cyanosis, or edema. Pain with palpation over pubic bone. MAEW. + peripheral pulses x4. NEUROLOGICAL: Awake and alert. Normal speech. Hospital Course [place]: Fell approximately 5-6 ft off a ladder landing on his buttocks and striking his head. ? LOC. Unable to move his leg. Tonic-clonic seizure while en route to hospital. INJURIES: Diastases pubic symphysis Concussion Diet: Regular Pulm: IS Pain: [place], IV Morphine Activity: OOB. PT and OT ordered (50% WB BLE) GI: Pepcid Bowel: Carli-colace, Lactulose PRN. LBM 11/16 DVT: SCDs, Lovenox 40 BID Diastases pubic symphysis Orthopedics consulted and cleared for discharge 11/12: ORIF pubic symphysis 50% Weightbearing BLE Pain control OOB- PT and OT ordered Lovenox F/U as outpatient Concussion with seizure Neurologist consulted Seizure precautions EEG- WNL No further seizure activity Keppra 1000mg q8H and PO Dilantin Dilantin level pending Repeat CT Brain- negative Neuro checks Avoid second head injury Post-concussive education F/U as outpatient Hospitalist consulted to assist with medical management. F/U with PCP in 1 week Plan of care discussed with patient and at bedside. Patient is clear from Trauma surgery standpoint to safely discharge to rehab. Pt Condition on Discharge: Stable Discharge Disposition: Rehab Inpatient Discharge Instructions DIET: Follow Instructions for: As Tolerated, No Restrictions Activities you can perform: Partial Weight Bearing Activities to Avoid: Concussion Sports, Strenuous Activity Other Activity Instructions: 50% weight bearing to bilateral legs Remarks seen and examined with [employer] TECHNICIAN-agree with assessment and plan neuro input appreciated PT DC rehab Remington Melton Nov 17, 2016 11:21 Caterina Long MD Nov 17, 2016 14:47
[2016-11-17 12:00] VITALS: BP 118/67; PULSE 66; RESP 16; TEMP 98.3; O2SAT 98
--- NOTE | 2016-11-17 12:46 | HHI.PR ---
Neuropsych Behavior Behavior: Intact: Behavior, Coping/Acceptance, Cooperative w/ Treatment, Motivation, Frustration Tolerance/[place], Impulsive/Agitated, Suicidal/Homicidal Risk Cognitive Cognitive: Intact: Cognitive, Attention/Concentration, Confused/Orientation, Insight/Awareness, Judgement/Problem-Solving, Memory Psychosocial Psychosocial: Intact: Psychosocial, Family/Other Adjustment, Realistic Expectation, Unable to Asses: Self-Esteem/Confidence Progress Notes/Response to Tx Contents of Sessions: Adjustment Time with Patient: 15 minutes Premorbid psychological status Premorbid Cognitive, Emotional and Behavioral Status: Stable. The patient has high school education and a solid work history prior to this injury. The patient has no prior psychiatric difficulties, as described above. Substance abuse history is unremarkable. Behavioral Reactions of Patient and Family/Support System: Stable. The patient s family is experiencing ongoing issues of adjustment given the nature of the injury, and this aspect of recovery will require ongoing monitoring. Emotional/Behavioral Status of Patient and Family/Support System: Stable. Pertinent issues, if appropriate to this patients clinical care, are described in detail above. Maximizing acute care outcome It is recommended that the patient be monitored for emergent behavioral impulsivity as the medical condition evolves. This patients neuropathological challenges may limit their rehabilitation potential going forward, and these challenges will require specialized therapeutic skills to maximize outcome. Anticipated Problems Ongoing areas of concern will include behavioral impulsivity, lack of insight and judgment, which is expected to improve with time and treatment. Presently , the patient is alert, oriented and generally neurocognitively intact except for those issues identified in the neurobehavioral status exam. Treatment Plan This clinician will continue to follow with you throughout the course of this patients acute treatment, and I will be available to meet with the patients family/support system to facilitate their understanding and the ongoing care of their family member. The goals of neuropsychological intervention shall be both educational and supportive to the family/support system as is deemed clinically appropriate. [facility] Level: VIII:Purposeful-appropriate Impression Neurobehavioral status examination results are consistent with a mild concussion given symptom report and concentration difficulties. Diagnosis: (1) Concussion with brief (less than one hour) loss of consciousness Status: Acute Progress Note Narrative Ongoing follow-up of patient seen during daily trauma rounds. This is day 9 post injury. The patient is improving, with neurological follow-up, added Dilantin. No new complaints. He wishes to go to rehabilitation. I will continue to follow. Noble Georges PhD Nov 17, 2016 12:46 pm
--- NOTE | 2016-11-17 15:28 | HHI.PR ---
Subjective Remarks Follow up seizures. No further seizure activity. States that he became very tired after taking dilantin this morning. No chest pain, dyspnea. Objective Vitals Vital Signs Date Time Temp Pulse Resp B/P (MAP) Pulse Ox O2 Delivery O2 Flow Rate FiO2 11/17/16 12:00 98.3 66 16 118/67 (84) 98 11/17/16 08:00 98.3 83 16 116/59 (78) 95 11/17/16 04:00 98.4 50 18 131/52 (78) 96 11/17/16 00:00 97.9 53 18 107/57 (74) 95 11/16/16 20:00 97.9 57 18 102/50 (67) 95 11/16/16 16:00 97.5 55 20 113/65 (81) 95 I/O 11/16/16 11/16/16 11/16/16 11/17/16 11/17/16 11/17/16 07:00 15:00 23:00 07:00 15:00 23:00 Intake Total 480 ml Output Total 1450 ml 250 ml 400 ml Balance -970 ml -250 ml -400 ml Intake Oral 480 ml Output Urine Total 1450 ml 250 ml 400 ml # Voids 7 2 # Bowel Movements 1 Result Diagram: 11/16/16 0945 11/16/16 0945 Imaging Last Impressions Head CT 11/15/16 0000 Signed Impressions: Service Date/Time: Tuesday, November 15, 2016 19:12 - CONCLUSION: Negative for acute traumatic injury. Tyrel Mcelroy MD FACR Pelvis X-Ray 11/12/16 0000 Signed Impressions: Service Date/Time: Saturday, November 12, 2016 11:27 - CONCLUSION: Fluoroscopic images during placement of plate and screws along the pubic symphysis. There is mild diastases. Raul Suarez MD Thoracic Spine CT 11/08/16 1504 Signed Impressions: Service Date/Time: Tuesday, November 08, 2016 15:11 - CONCLUSION: 1. Minimal degenerative changes in the mid and lower dorsal spine with small marginal spurs. 2. No fracture. Spinal canal is patent throughout. Jason Phillips MD Lumbar Spine CT 11/08/16 1504 Signed Impressions: Service Date/Time: Tuesday, November 08, 2016 15:11 - CONCLUSION: No acute lumbar spine abnormality is identified. Omid Kincaid MD Chest X-Ray 11/08/16 1504 Signed Impressions: Service Date/Time: Tuesday, November 08, 2016 14:47 - CONCLUSION: No acute finding is identified. Omid Kincaid MD Chest CT 11/08/16 1504 Signed Impressions: Service Date/Time: Tuesday, November 08, 2016 15:11 - CONCLUSION: Negative for acute traumatic injury.. Tyrel Mcelroy MD FACR Cervical Spine CT 11/08/16 1504 Signed Impressions: Service Date/Time: Tuesday, November 08, 2016 15:03 - CONCLUSION: No acute cervical spine abnormality is identified. 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 Correlation suggested Negative for acute traumatic injury. Tyrel Mcelroy MD FACR Objective Remarks General: No acute distress. Heart: Regular rate and rhythm. No murmur. Lungs: Clear to auscultation bilaterally. No wheezes, rales, or rhonchi. Breathing is nonlabored. Abdomen: Soft, nontender, nondistended. Extremities: No lower extremity edema. SCDs. Psych: Alert and oriented. Procedures 11/12/16 open reduction internal fixation pubic symphysis Urinary Catheter: No Vascular Central Line Catheter: No A/P Problem List: (1) Post traumatic seizure ICD Code: R56.1 - Post traumatic seizures Status: Acute (2) Weakness ICD Code: R53.1 - Weakness Status: Acute Assessment and Plan 1. Posttraumatic seizures: Appreciate neurology recommendations. Continue Keppra , Dilantin. Ativan as needed. No further seizure activity. 2. Status post ORIF of pubic symphysis: Management per orthopedic surgery. 3. GI prophylaxis: Famotidine. 4. DVT prophylaxis: Lovenox, SCDs. Discharge Planning Discharge to [facility] today per trauma service. Ruben Fisher MD Nov 17, 2016 15:28
--- NOTE | 2016-11-18 08:22 | PD.NP.DS ---
Discharge Summary Reason for Referral: The patient is a 28 year old right handed male status post traumatic injury due to a fall from a six foot ladder on 11/08/2016. Reportedly, the patient fell from the ladder landing on his buttocks, and was noted to have a seizure lasting one minute with post-ictal phenomena. Please note that he did have a prior seizure as a child. His GCS was [address] was reported as normal. He does report RLE weakness. Medical reports are concerned that he suffered a concussion from the fall, and hence he is referred for baseline neurobehavioral status examination per trauma protocol to assess cognitive, behavioral and emotional aspects of the injury and to provide treatment recommendations. Concussion evaluation documented signs and symptoms consistent with concussion, and he was referred to concussion clinic on an outpatient basis (refer to Dr. Jeramy Mcghee M.D. at [phone]). From trauma team perspective, this patient met his goals and was discharged home. Past Medical History: Please refer to the patient's history and physical for information concerning the patient's past medical, surgical, and psychiatric histories. Education/Learning Hx: The patient completed high school years of education. There is no report of learning difficulties, grade repetitions or behavioral difficulties. The patient has a solid work history prior to his injury. The patient is and he has children. The patient lives in [place], [place]. Premorbid Cognitive, Emotional and Behavioral Status: Stable. The patient has high school education and a solid work history prior to this injury. The patient has no prior psychiatric difficulties, as described above. Substance abuse history is unremarkable. Behavioral Reactions of Patient and Family/Support System: Stable. The patient s family is experiencing ongoing issues of adjustment given the nature of the injury, and this aspect of recovery will require ongoing monitoring. Emotional/Behavioral Status of Patient and Family/Support System: Stable. Pertinent issues, if appropriate to this patients clinical care, are described in detail above. Treatment Interventions: During the course of their acute care stay, this patient and their family/ support system were provided information concerning the neuropsychological aspects of the injury, education regarding course of recovery, and psychological support in the form of counseling with the person served and the family/support system as documented in the neuropsychology service progress notes, as deemed clinically appropriate. Current, Cognitive, Emotional and Behavioral Status: Stable. This patient has experienced a moderately severe injury, although is concussion was mild, and he may be adjusting to cognitive, emotional and behavioral challenges going forward. Thus he was referred to the concussion clinic. Impression at Discharge: The cognitive and behavioral status of this patient meets criteria for [place] Level VIII. Mild Neurocognitive Disorder CODE: G31.84 The above listed diagnoses are supported by the following clinical criteria: Mild Neurocognitive Disorder: This person demonstrates a significant cognitive decline from a previous level of estimated baseline performance in one or more cognitive domains (complex attention, executive functioning, learning and memory , language, perceptual-motor, or social cognition) based on the patients / informants report, further documented by todays testing results, with these cognitive deficits not interfering with the patients independence in everyday activities. Status of Family/Support System Adjustment: Stable. The patients family/ support system mayl experience ongoing issues of adjustment given the nature of the injury, and this aspect of the patients recovery will require ongoing monitoring. Post Acute Recommendations: It is recommended that the patient continue to be monitored for behavioral impulsivity as they continue to be early in their course of recovery. This patients neuropathological challenges may limit their reintegration into work and family life going forward, and these challenges may require specialized therapeutic skills to maximize outcome. Thank you for the opportunity to assist in this patients care. Noble Georges, Ph.D., ABPP Board Certified in Clinical Neuropsychology [place] [employer] [place] Licensed Psychologist #[id number] Nbole Georges PhD Nov 18, 2016 8:22 am
[2016-11-22] MEDS ORDERED: WHEEMIS3 (12:57)
[2016-11-22] MEDS ORDERED: TRANSFER BENCH1 MIS (12:57)
[2016-11-22] MEDS ORDERED: BEDSIDE COMMODE1 MI1 (12:57)
[2016-11-22] MEDS ORDERED: GETGO ROLLING W1 MI1 (12:57)
[2016-11-25] MEDS ORDERED: ACET1TAB86 PO (12:22)
[2016-11-25] MEDS ORDERED: DILA100C PO ×2 (12:22)
[2016-11-25] MEDS ORDERED: FAMO20TA2 PO (12:22)
[2016-11-25] MEDS ORDERED: XARE10TA PO (12:22)
[2016-11-25] MEDS ORDERED: LEVE500 PO (12:22)
[2016-11-26] MEDS ORDERED: ULTR50TA5 PO (08:57)
== END 2016-11-17 15:50 | DRG 516 ==
LOC: NEPE 14:54 → NEDA 15:42 → EDBD 15:42 → NEDH 15:42 → UNDOADMIN 15:42 → N05B 19:19 → NEDH 19:19 → UNDODISIN 11-17 15:50
PROVIDERS: ADMIT Surgery; ATTEND Surgery
PROC: 0QS204Z Reposition Right Pelvic Bone with Internal Fixation Device, Open Approach (ICD-10-PCS; 2016-11-12)
PROC: 0QS304Z Reposition Left Pelvic Bone with Internal Fixation Device, Open Approach (ICD-10-PCS; principal; 2016-11-12 10:18)
DX: S33.4XXA Traumatic rupture of symphysis pubis, initial encounter (principal); R56.1 Post traumatic seizures; S06.0X9A Concussion with loss of consciousness of unspecified duration, initial encounter; N31.9 Neuromuscular dysfunction of bladder, unspecified; G83.11 Monoplegia of lower limb affecting right dominant side; R00.0 Tachycardia, unspecified; W11.XXXA Fall on and from ladder, initial encounter; Y93.9 Activity, unspecified; Y92.9 Unspecified place or not applicable; Y99.0 Civilian activity done for income or pay; Z80.1 Family history of malignant neoplasm of trachea, bronchus and lung; Z80.9 Family history of malignant neoplasm, unspecified; Z83.3 Family history of diabetes mellitus; W01.0XXA Fall on same level from slipping, tripping and stumbling without subsequent striking against object, initial encounter; Y93.89 Activity, other specified; Y92.231 Patient bathroom in hospital as the place of occurrence of the external cause
CPT/HCPCS: 70450; 71010; 71260; 72125; 72128; 72131; 72170; 72190; 74177; 76000; 80048; 80053; 80185; 80307; 82435; 82565; 82947; 83036; 83735; 84100; 84132; 84295; 84439; 84443; 84520; 85014; 85018; 85025; 85027; 85610; 85730; 86850; 86900; 86901; 86920; 94150; 95819; 96374; 96375; 99291; C1713; G0390; J0690; J1100; J1580; J1650; J2060; J2250; J2270; J2405; J2710; J3010; J3370; J7050; J7120; Q2009; Q9967

== ENCOUNTER 2016-12-20 17:52 | Inpatient (IN) | payer OTHER ==
[~2016-12-20] VITALS: Ht 188 cm; Wt 90.0 kg
[~2016-12-20 17:52] MED LIST: ACET1TAB86 PO; BEDSIDE COMMODE1 MI1; DILA100C PO; FAMO20TA2 PO; GETGO ROLLING W1 MI1; HYDR-3580 PO; LEVE500 PO; TRANSFER BENCH1 MIS; ULTR50TA5 PO; WALKER/ADULT/FO1 MIS; WHEEMIS3; XARE10TA PO
[2016-12-20 17:56] VITALS: BP 131/78; PULSE 75; RESP 15; TEMP 98.7; O2SAT 100
[2016-12-20] MEDS ORDERED: SODIUM CHLORIDE 0.9% FLUSH 10 ML FLUSH IVF PRN (20:30)
[2016-12-20 20:42] VITALS: BP 123/78; PULSE 68; RESP 18; O2SAT 98
[2016-12-20 20:43] VITALS: RESP 18; O2SAT 98
[2016-12-20] MEDS ORDERED: PHENYTOIN SODIUM 100 MG CAP PO ONE (20:45)
[2016-12-20] MEDS ORDERED: levETIRAcetam 500 MG TAB PO ONE (20:45)
--- NOTE | 2016-12-20 20:45 | PD ---
HPI Chief Complaint: Seizure Time Seen by Provider: 20:19 Travel History International Travel<30 days: No Contact w/Intl Traveler<30days: No Traveled to known affect area: No History of Present Illness HPI Patient is a 36-year-old male. He complains of the seizure activity about 18 hours prior to ER arrival, 3 in the morning. She describes sitting on his couch after being unable to sleep and seen white spots and black spots before losing consciousness. He has been very tired lately. He describes a vague electrical sensation originating from the vertex of the scalp and then passing through his body leading to the toes lasting a second or 2 intermittently. He reports strict compliance with Keppra and Dilantin. Dr. Gomez advised him to come to have levels checked. Location neurologic. Severity moderate. PFSH Past Medical History Autoimmune Disease: No Anxiety: Yes Depression: No Cancer: No Cardiovascular Problems: No Cerebrovascular Accident: No Endocrine: No Genitourinary: Yes (Urinary Retention) Immune Disorder: No Musculoskeletal: No Neurologic: Yes Psychiatric: No Reproductive: No Respiratory: No Migraines: No Seizures: Yes Past Surgical History Abdominal Surgery: No Body Medical Devices: Interstim Implant Cardiac Surgery: No Ear Surgery: No Endocrine Surgery: No Eye Surgery: No Genitourinary Surgery: No Gynecologic Surgery: No Oral Surgery: No Thoracic Surgery: No Social History Alcohol Use: No Tobacco Use: No Substance Use: No Allergies-Medications (Allergen,Severity, Reaction): Coded Allergies: No Known Allergies (Unverified , 11/08/16) Reported Meds & Prescriptions Reported Meds & Active Scripts Active Ultram (Tramadol HCl) 50 Mg Tab 50 Mg PO Q8H PRN 30 Days Keppra (Levetiracetam) 500 Mg Tab 1,000 Mg PO TID 30 Days Dilantin (Phenytoin Extended) 100 Mg Cap 300 Mg PO HS 30 Days Dilantin (Phenytoin Extended) 100 Mg Cap 200 Mg PO DAILY 30 Days Wheelchair (Device) 1 Mis Mis Ea .ROUTE DIRECTED Transfer Bench (Device) 1 Mis Mis Ea .ROUTE DIRECTED Bedside Commode (Device) 1 Mis Mis Ea .ROUTE DIRECTED Walker Rolling/GetGo (Device) 1 Mis Mis Ea .ROUTE DIRECTED Bedside Commode (Device) 1 Mis Mis Ea .ROUTE DIRECTED Wheelchair (Device) 1 Mis Mis Ea .ROUTE DIRECTED Walker/Adult/Folding (Device) 1 Mis Mis Ea .ROUTE DIRECTED Review of Systems Except as stated in HPI: all other systems reviewed are Neg General / Constitutional: No: Fever Musculoskeletal: Positive: Edema Neurologic: Positive: Weakness, Seizures Physical Exam Narrative GENERAL: Well-nourished well-developed 36-year-old male speaking full sentences no acute distress SKIN: Warm and dry. HEAD: Atraumatic. Normocephalic. EYES: Pupils equal and round. No scleral icterus. No injection or drainage. ENT: No nasal bleeding or discharge. Mucous membranes pink and moist. NECK: Trachea midline. No JVD. CARDIOVASCULAR: Regular rate and rhythm. RESPIRATORY: No accessory muscle use. Clear to auscultation. Breath sounds equal bilaterally. GASTROINTESTINAL: Abdomen soft, non-tender, nondistended. Hepatic and splenic margins not palpable. MUSCULOSKELETAL: Extremities without clubbing, cyanosis, or edema. No obvious deformities. NEUROLOGICAL: A and O 3. GCS 15. Weakness of the right lower extremity. Pupils equal and reactive light. PSYCHIATRIC: Appropriate mood and affect; insight and judgment normal. Data Data Last Documented VS Vital Signs Date Time Temp Pulse Resp B/P (MAP) Pulse Ox O2 Delivery O2 Flow Rate FiO2 12/20/16 20:43 18 98 Room Air 12/20/16 20:42 68 12/20/16 17:56 98.7 Vital signs reviewed Orders Orders Complete Blood Count With Diff (12/20/16 20:19) Alcohol (Ethanol) (12/20/16 20:19) Phenytoin (Dilantin) (12/20/16 20:19) Drug Screen, Random Urine (12/20/16 20:19) Ct Brain W/O Iv Contrast(Rout) (12/20/16 ) Blood Glucose (12/20/16 20:19) Ecg Monitoring (12/20/16 20:19) Iv Access Insert/Monitor (12/20/16 20:19) Oximetry (12/20/16 20:19) Comprehensive Metabolic Panel (12/20/16 20:19) Sodium Chloride 0.9% Flush (Ns Flush) (12/20/16 20:30) Levetiracetam (Keppra) (12/20/16 20:45) Phenytoin (Dilantin) (12/20/16 20:45) Lorazepam Inj (Ativan Inj) (12/20/16 21:15) Admit Order (Ed Use Only) (12/20/16 ) Motion Picture Actor / Telemetry GEOVANNA.Q8H (12/20/16 22:15) Diet Npo (12/21/16 Breakfast) Activity Bed Rest (12/20/16 22:15) Labs Laboratory Tests Test 12/20/16 21:19 12/20/16 21:57 White Blood Count 8.8 TH/MM3 Red Blood Count 4.72 MIL/MM3 Hemoglobin 14.0 GM/DL Hematocrit 40.7 % Mean Corpuscular Volume 86.2 FL Mean Corpuscular Hemoglobin 29.6 PG Mean Corpuscular Hemoglobin Concent 34.4 % Red Cell Distribution Width 12.7 % Platelet Count 291 TH/MM3 Mean Platelet Volume 7.6 FL Neutrophils (%) (Auto) 70.2 % Lymphocytes (%) (Auto) 23.2 % Monocytes (%) (Auto) 5.3 % Eosinophils (%) (Auto) 0.8 % Basophils (%) (Auto) 0.5 % Neutrophils # (Auto) 6.2 TH/MM3 Lymphocytes # (Auto) 2.0 TH/MM3 Monocytes # (Auto) 0.5 TH/MM3 Eosinophils # (Auto) 0.1 TH/MM3 Basophils # (Auto) 0.0 TH/MM3 CBC Comment DIFF FINAL Differential Comment Blood Urea Nitrogen 10 MG/DL Creatinine 0.65 MG/DL Random Glucose 81 MG/DL Total Protein 8.3 GM/DL Albumin 4.4 GM/DL Calcium Level 9.5 MG/DL Alkaline Phosphatase 163 U/L Aspartate Amino Transf (AST/SGOT) 25 U/L Alanine Aminotransferase (ALT/SGPT) 76 U/L Total Bilirubin 0.3 MG/DL Sodium Level 137 MEQ/L Potassium Level 3.5 MEQ/L Chloride Level 103 MEQ/L Carbon Dioxide Level 29.0 MEQ/L Anion Gap 5 MEQ/L Estimat Glomerular Filtration Rate 138 ML/MIN Phenytoin (Dilantin) Level 9.7 MCG/ML Ethyl Alcohol Level LESS THAN 3 MG/DL Urine Opiates Screen NEG Urine Barbiturates Screen NEG Urine Amphetamines Screen NEG Urine Benzodiazepines Screen NEG Urine Cocaine Screen NEG Urine Cannabinoids Screen NEG MDM Medical Decision Making Medical Screen Exam Complete: Yes Emergency Medical Condition: Yes Medical Record Reviewed: Yes Differential Diagnosis subtherapeutic Dilantin level, epilepsy, seizures, electrolyte imbalance Narrative Course CBC & BMP Diagram 12/20/16 21:19 Total Protein 8.3 H, Albumin 4.4, Calcium Level 9.5, Alkaline Phosphatase 163 H , Aspartate Amino Transf (AST/SGOT) 25, Alanine Aminotransferase (ALT/SGPT) 76, Total Bilirubin 0.3 Last [address] 12/20/16 0000 Signed Impressions: Service Date/Time: Tuesday, December 20, 2016 20:50 - CONCLUSION: Negative noncontrast CT. Dereck Guzman MD pt had seizure in ct without post-ictal state 1mg ativan given, no sz activity in ER following return from CT 200mg dilantin given po shortly following arrival d/w Dr Jones for neurology d/w Dr Alvarado for [facility] Diagnosis Primary Impression: Seizure Additional Impression: Subtherapeutic phenytoin level Admitting Information Admitting Physician Requests: Observation Michael Diehl MD Dec 20, 2016 20:45
--- NOTE | 2016-12-20 21:07 | RADRPT ---
EXAM DATE/TIME: 12/20/2016 20:50 [place] COMPARISON: CT BRAIN W/O CONTRAST, November 15, 2016, 19:12. INDICATIONS : Seizure. RADIATION DOSE: 37.30 CTDIvol (mGy) MEDICAL HISTORY : Seizures. SURGICAL HISTORY : None. ENCOUNTER: Initial ACUITY: 1 day PAIN SCALE: 4/10 LOCATION: cranial TECHNIQUE: Multiple contiguous axial images were obtained of the head. Using automated exposure control and adj ustment of the mA and/or kV according to patient size, radiation dose was kept as low as reasonably a chievable to obtain optimal diagnostic quality images. DICOM format image data is available electro nically for review and comparison. FINDINGS: CEREBRUM: The ventricles are normal for age. No evidence of midline shift, mass lesion, hemorrhage or acute in farction. No extra-axial fluid collections are seen. POSTERIOR FOSSA: The cerebellum and brainstem are intact. The 4th ventricle is midline. The cerebellopontine angle i s unremarkable. EXTRACRANIAL: The visualized portion of the orbits is intact. SKULL: The calvaria is intact. No evidence of skull fracture. CONCLUSION: Negative noncontrast CT. Dereck Guzman MD on December 20, 2016 at 21:05 Board Certified Radiologist. This report was verified electronically.
[2016-12-20] MEDS ORDERED: LORazepam 2 MG/ML VIAL IV PUSH ONE (21:15)
[2016-12-20 21:46] LABS: AUTOMATED NEUTROPHIL # 6.2 TH/MM3 (1.8-7.7); BASOPHIL % 0.5 % (0.0-2.0); EOSINOPHIL # 0.1 TH/MM3 (0-0.4); EOSINOPHIL % 0.8 % (0.0-4.0); HEMATOCRIT 40.7 % (39.0-51.0); HEMO FLAGS DIFF FINAL; LYMPH % 23.2 % (9.0-44.0); MEAN CELL VOLUME 86.2 FL (80.0-100.0); MEAN CORPUSCULAR HEMOGLOBIN 29.6 PG (27.0-34.0); MEAN CORPUSCULAR HGB CONC 34.4 % (32.0-36.0); MONO % 5.3 % (0.0-8.0); NEUT % 70.2 % (16.0-70.0); PLATELET COUNT 291 TH/MM3 (150-450); RED BLOOD COUNT 4.72 MIL/MM3 (4.50-5.90); RED CELL DISTRIBUTION WIDTH 12.7 % (11.6-17.2); WHITE BLOOD COUNT 8.8 TH/MM3 (4.0-11.0)
[2016-12-20 21:55] LABS: ANION GAP 5 MEQ/L (5-15); AST (GOT) 25 U/L (15-37); BLOOD UREA NITROGEN 10 MG/DL (7-18); CHLORIDE 103 MEQ/L (98-107); GLOMERULAR FILTRATION RATE 138 ML/MIN (>89); POTASSIUM 3.5 MEQ/L (3.5-5.1); SODIUM (NA) 137 MEQ/L (136-145)
[2016-12-20 21:56] LABS: ALCOHOL LESS THAN 3 MG/DL (0-5); ALT (GPT) 76 U/L (12-78)
[2016-12-20 22:06] LABS: ALKALINE PHOSPHATASE 163 U/L (45-117); TOTAL BILIRUBIN ADULT 0.3 MG/DL (0.2-1.0)
[2016-12-20] MEDS ORDERED: NALOXONE HCL 0.4 MG/ML AMP IV PUSH PRN (22:30)
[2016-12-20] MEDS ORDERED: ONDANSETRON HCL 4 MG/2 ML VIAL IVP PRN (22:30)
[2016-12-20] MEDS ORDERED: SODIUM CHLORIDE 0.9% FLUSH 10 ML FLUSH IV FLUSH PRN (22:30)
--- NOTE | 2016-12-20 22:42 | HHI.HP ---
HPI Service [facility] Primary [facility] Physician Carlos Alberto Lam III, MD Admission Diagnosis Seizures, Subtherapeutic Dilantin Level Diagnoses: Chief Complaint: seizure Travel History International Travel<30 Days: No Contact w/Intl Traveler <30 Da: No Traveled to Known Affected Are: No History of Present Illness Written by NATASHA Rosenthal acting as scribe for Dr. Palacio] on 12/20/16 at 22:42. 36 y/o male with a history of seizures from a TBI on November 12 after a fall from a ladder presented to the ED with complaints of seizures. He states he woke up at 3am with hip pain and he took a pain pill and laid down on the couch. Last thing he remembers is seeing white spots and he woke up with urine on himself. Denies any chest pain, sob, fever or chills. He called his neurologist Dr. Gomez and he recommended coming to the ED. While patient was in the CT scan he suffered another seizure. He states he has had a loss of appetite and has not been eating well. Review of Systems Except as stated in HPI: all other systems reviewed are Neg Past Family Social History Past Medical History TBI 10/2016 from a fall from a ladder Past Surgical History Bladder stimulator Pelvic surgery Reported Medications Reported Meds & Active Scripts Active Ultram (Tramadol HCl) 50 Mg Tab 50 Mg PO Q8H PRN 30 Days Keppra (Levetiracetam) 500 Mg Tab 1,000 Mg PO TID 30 Days Dilantin (Phenytoin Extended) 100 Mg Cap 300 Mg PO HS 30 Days Dilantin (Phenytoin Extended) 100 Mg Cap 200 Mg PO DAILY 30 Days Wheelchair (Device) 1 Mis Mis Ea .ROUTE DIRECTED Transfer Bench (Device) 1 Mis Mis Ea .ROUTE DIRECTED Bedside Commode (Device) 1 Mis Mis Ea .ROUTE DIRECTED Walker Rolling/GetGo (Device) 1 Mis Mis Ea .ROUTE DIRECTED Bedside Commode (Device) 1 Mis Mis Ea .ROUTE DIRECTED Wheelchair (Device) 1 Mis Mis Ea .ROUTE DIRECTED Walker/Adult/Folding (Device) 1 Mis Mis Ea .ROUTE DIRECTED Allergies: Coded Allergies: No Known Allergies (Unverified , 11/08/16) Active Ordered Medications Current Medications Medications (Trade) Dose Ordered Sig/Kasi Route Start Time Stop Time Status Last Admin Sodium Chloride 1,000 ml @ 100 mls/hr Q10H IV 12/20/16 22:18 12/20/16 23:18 (NS Flush) 2 ml UNSCH PRN IV FLUSH 12/20/16 22:30 (NS Flush) 2 ml BID IV FLUSH 12/21/16 09:00 (Zofran Inj) 4 mg Q6H PRN IVP 12/20/16 22:30 (Narcan Inj) 0.4 mg UNSCH PRN IV PUSH 12/20/16 22:30 (Ativan Inj) 1 mg Q15M PRN IV PUSH 12/20/16 22:30 Family History Mother: Alive, lung cancer, positive tobacco use. Father: alive, skin cancer positive tobacco use. Social History Patient denies any tobacco, alcohol or illicit drug use Physical Exam Vital Signs Vital Signs Date Time Temp Pulse Resp B/P (MAP) Pulse Ox O2 Delivery O2 Flow Rate FiO2 12/20/16 20:43 18 98 Room Air 12/20/16 20:42 68 18 123/78 (93) 98 Room Air 12/20/16 17:56 98.7 75 15 131/78 (95) 100 Physical Exam GENERAL: This is a well-nourished, well-developed patient, in no apparent distress. SKIN: No rashes, ecchymoses or lesions. Cool and dry. HEAD: Atraumatic. Normocephalic. No temporal or scalp tenderness. EYES: Pupils equal round and reactive. Extraocular motions intact. ENT: Nose without bleeding, purulent drainage or septal hematoma.Airway patent. NECK: Trachea midline. No JVD CARDIOVASCULAR: Regular rate and rhythm without murmurs, gallops, or rubs. RESPIRATORY: Clear to auscultation. Breath sounds equal bilaterally. No wheezes , rales, or rhonchi. GASTROINTESTINAL: Abdomen soft, non-tender, nondistended. No guarding. MUSCULOSKELETAL: Dependent edema in bilateral lower extremities. No calf tenderness. NEUROLOGICAL: Awake and alert. Motor and sensory grossly within normal limits.4 out of 5 muscle strength in lower extremities, weaker on right lower. Less sensation in right lower. Normal speech. Laboratory Laboratory Tests Test 12/20/16 21:19 12/20/16 21:57 White Blood Count 8.8 Red Blood Count 4.72 Hemoglobin 14.0 Hematocrit 40.7 Mean Corpuscular Volume 86.2 Mean Corpuscular Hemoglobin 29.6 Mean Corpuscular Hemoglobin Concent 34.4 Red Cell Distribution Width 12.7 Platelet Count 291 Mean Platelet Volume 7.6 Neutrophils (%) (Auto) 70.2 Lymphocytes (%) (Auto) 23.2 Monocytes (%) (Auto) 5.3 Eosinophils (%) (Auto) 0.8 Basophils (%) (Auto) 0.5 Neutrophils # (Auto) 6.2 Lymphocytes # (Auto) 2.0 Monocytes # (Auto) 0.5 Eosinophils # (Auto) 0.1 Basophils # (Auto) 0.0 CBC Comment DIFF FINAL Differential Comment Blood Urea Nitrogen 10 Creatinine 0.65 Random Glucose 81 Total Protein 8.3 Albumin 4.4 Calcium Level 9.5 Alkaline Phosphatase 163 Aspartate Amino Transf (AST/SGOT) 25 Alanine Aminotransferase (ALT/SGPT) 76 Total Bilirubin 0.3 Sodium Level 137 Potassium Level 3.5 Chloride Level 103 Carbon Dioxide Level 29.0 Anion Gap 5 Estimat Glomerular Filtration Rate 138 Phenytoin (Dilantin) Level 9.7 Ethyl Alcohol Level LESS THAN 3 Result Diagram: 12/20/16211812/20/162118 Imaging Last Impressions Head CT 12/20/16 0000 Signed Impressions: Service Date/Time: Tuesday, December 20, 2016 20:50 - CONCLUSION: Negative noncontrast CT. MD Parvez Weeksi VTE Risk Assessment Caprini VTE Risk Assessment: No/Low Risk (score <= 1) Caprini Risk Assessment Model Point Value = 1 Point Value = 2 Point Value = 3 Point Value = 5 Age 41-60 Minor surgery BMI > 25 kg/m2 Swollen legs Varicose veins or History of unexplained or recurrent spontaneous Oral contraceptives or hormone replacement Sepsis (< 1 month) Serious lung disease, including pneumonia (< 1 month) Abnormal pulmonary function Acute myocardial infarction Congestive heart failure (< 1 month) History of inflammatory bowel disease Medical patient at bed rest Age 61-74 Arthroscopic surgery Major open surgery (> 45 min) Laparoscopic surgery (> 45 min) Malignancy Confined to bed (> 72 hours) Immobilizing plaster cast Central venous access Age >= 75 History of VTE Family history of VTE Factor V Leiden Prothrombin [id number] Lupus anticoagulant Anticardiolipin antibodies Elevated serum homocysteine Heparin-induced thrombocytopenia Other congenital or acquired thrombophilia Stroke (< 1 month) Elective arthroplasty Hip, pelvis, or leg fracture Acute spinal cord injury (< 1 month) Prophylaxis Regimen Total Risk Factor Score Risk Level Prophylaxis Regimen 0-1 Low Early ambulation 2 Moderate Order ONE of the following: *Sequential Compression Device (SCD) *Heparin 5000 units SQ BID 3-4 Higher Order ONE of the following medications: *Heparin 5000 units SQ TID *Enoxaparin/Lovenox 40 mg SQ daily (WT < 150 kg, CrCl > 30 mL/min) *Enoxaparin/Lovenox 30 mg SQ daily (WT < 150 kg, CrCl > 10-29 mL/min) *Enoxaparin/Lovenox 30 mg SQ BID (WT < 150 kg, CrCl > 30 mL/min) AND/OR *Sequential Compression Device (SCD) 5 or more Highest Order ONE of the following medications: *Heparin 5000 units SQ TID (Preferred with Epidurals) *Enoxaparin/Lovenox 40 mg SQ daily (WT < 150 kg, CrCl > 30 mL/min) *Enoxaparin/Lovenox 30 mg SQ daily (WT < 150 kg, CrCl > 10-29 mL/min) *Enoxaparin/Lovenox 30 mg SQ BID (WT < 150 kg, CrCl > 30 mL/min) AND *Sequential Compression Device (SCD) Assessment and Plan Problem List: (1) Seizure ICD Code: R56.9 - Unspecified convulsions Assessment and Plan 36 y/o male with a history of seizures from a TBI on November 12 after a fall from a ladder presented to the ED with complaints of seizures. Seizure, reoccurring, s/p TBI Head CT reviewed and shows no acute abnormalities -Consult neurology, patient known to DR. Jason Narvaez and Dilantin given in ED as requested by Dr. Jones -Seizure precautions -Ativan prn DVT prophylaxis: SCDs Discussed Condition With Patient and ED physician This note was transcribed by NATASHA Ramos. I, Dr. Dean Alvarado personally performed the history, physical exam, and medical decision making; and confirmed the accuracy of the information in the transcribed note. Authenticated by Dr. Dean Alvarado on 12/21/16 at 05:56. Porsha Britton Dec 20, 2016 22:42 Dean Alvarado MD Dec 21, 2016 05:56
[2016-12-20 23:00] VITALS: BP 119/67; PULSE 72; RESP 18; O2SAT 98
[2016-12-20] MEDS: SODIUM CHLOR 0.9% 1000 ML INJ 1,000 ML IV SCH (23:18)
[2016-12-21] VITALS (10 sets, daily range): BP systolic 101–128; BP diastolic 57–69; PULSE 71–86; RESP 18–24; TEMP 97.7–98.9; O2SAT 94–98
[2016-12-21] MEDS: LORazepam 2 MG/ML VIAL IV PUSH PRN (04:19)
[2016-12-21] MEDS ORDERED: levETIRAcetam 1000 MG INJ 100 ML IV ONE (04:30)
[2016-12-21] MEDS ORDERED: PHENYTOIN INJ 100 MG/2 ML VIAL IV ONE (04:30)
[2016-12-21 04:55] LABS: AUTOMATED NEUTROPHIL # 4.7 TH/MM3 (1.8-7.7); BASOPHIL % 0.4 % (0.0-2.0); EOSINOPHIL # 0.1 TH/MM3 (0-0.4); EOSINOPHIL % 0.8 % (0.0-4.0); HEMATOCRIT 35.4 % (39.0-51.0); HEMO FLAGS DIFF FINAL; LYMPH % 24.1 % (9.0-44.0); LYMPHOCYTE # 1.7 TH/MM3 (1.0-4.8); MEAN CELL VOLUME 85.9 FL (80.0-100.0); MEAN CORPUSCULAR HEMOGLOBIN 29.9 PG (27.0-34.0); MEAN CORPUSCULAR HGB CONC 34.8 % (32.0-36.0); MONO % 7.4 % (0.0-8.0); NEUT % 67.3 % (16.0-70.0); PLATELET COUNT 245 TH/MM3 (150-450); RED BLOOD COUNT 4.12 MIL/MM3 (4.50-5.90); RED CELL DISTRIBUTION WIDTH 12.3 % (11.6-17.2)
[2016-12-21 05:29] LABS: ALT (GPT) 63 U/L (12-78); ANION GAP 6 MEQ/L (5-15); AST (GOT) 20 U/L (15-37); BICARBONATE 27.6 MEQ/L (21.0-32.0); BLOOD UREA NITROGEN 11 MG/DL (7-18); CHLORIDE 105 MEQ/L (98-107); GLOMERULAR FILTRATION RATE 146 ML/MIN (>89); POTASSIUM 3.4 MEQ/L (3.5-5.1); SODIUM (NA) 139 MEQ/L (136-145)
[2016-12-21 05:31] LABS: ALKALINE PHOSPHATASE 137 U/L (45-117); TOTAL BILIRUBIN ADULT 0.5 MG/DL (0.2-1.0)
[2016-12-21] MEDS: PHENYTOIN SODIUM 100 MG CAP PO SCH ×2 (07:54→21:17)
[2016-12-21] MEDS: SODIUM CHLORIDE 0.9% FLUSH 10 ML FLUSH IV FLUSH SCH ×2 (07:54→21:00)
--- NOTE | 2016-12-21 08:14 | HHI.PR ---
Subjective Remarks Patient is sleepy. had a seizure episode in the morning today. Feels tired. Follow commands. No headache, no new motor deficit. No n/v/d/c. Has decreased appetite and not able to eat much .K is low replaced. Objective Vitals Vital Signs Date Time Temp Pulse Resp B/P (MAP) Pulse Ox O2 Delivery O2 Flow Rate FiO2 12/21/16 07:55 97.9 78 22 128/69 (88) 98 12/21/16 05:38 98.0 86 18 118/63 (81) 97 12/21/16 03:42 73 12/21/16 01:38 97.7 71 18 101/58 (72) 98 12/20/16 23:13 12/20/16 23:00 72 18 119/67 (84) 98 Room Air 12/20/16 20:43 18 98 Room Air 12/20/16 20:42 68 18 123/78 (93) 98 Room Air 12/20/16 17:56 98.7 75 15 131/78 (95) 100 I/O 12/20/16 12/20/16 12/20/16 12/21/16 12/21/16 12/21/16 07:00 15:00 23:00 07:00 15:00 23:00 Intake Total 0 ml Balance 0 ml Intake Oral 0 ml # Voids 1 Result Diagram: 12/21/16 0442 12/21/16 0442 Imaging Last Impressions Head CT 12/20/16 0000 Signed Impressions: Service Date/Time: Tuesday, December 20, 2016 20:50 - CONCLUSION: Negative noncontrast CT. Dereck Guzman MD Objective Remarks GENERAL: This is a well-nourished, well-developed patient, in no apparent distress. CARDIOVASCULAR: Regular rate and rhythm without murmurs, gallops, or rubs. RESPIRATORY: Clear to auscultation. Breath sounds equal bilaterally. No wheezes , rales, or rhonchi. GASTROINTESTINAL: Abdomen soft, non-tender, nondistended. No guarding. MUSCULOSKELETAL: Dependent edema in bilateral lower extremities. No calf tenderness. NEUROLOGICAL: Awake and alert. Motor and sensory grossly within normal limits.4 out of 5 muscle strength in lower extremities, weaker on right lower. Less sensation in right lower. Normal speech. 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 Seizure, reoccurring, s/p TBI Head CT reviewed and shows no acute abnormalities -Consult neurology, patient known to DR. Jason Narvaez and Dilantin given in ED as requested by Dr. Jones neurology. - 12/21 Had breakthrough seizure overnight. Phenytoin level is subtherapeutic. discussed with Dr James neurology, will give dosing load . Will do EEG -Seizure precautions -Ativan prn DVT prophylaxis: SCDs Discussed Condition With Patient, nurse, family at bedside, Dr James neurology Leila Mckee MD Dec 21, 2016 08:14
[2016-12-21] MEDS ORDERED: POTASSIUM CHLORIDE 20 MEQ CONTROLLED RELEASE TAB PO ONE (08:30)
--- NOTE | 2016-12-21 09:45 | MB ---
cc: ANUP TRACEY MD DATE OF CONSULTATION 12/21/2016 REASON FOR CONSULTATION Breakthrough seizure status post remote head injury. HISTORY OF PRESENT ILLNESS The patient presented with generalized seizure at home. The patient was diagnosed with seizure disorder followed by Dr. Gomez on November 08 after he sustained a trauma alert. He fell off a ladder en route. He had a generalized seizure and was admitted to the hospital with a fractured pelvis. CT scan was unremarkable. The patient was started on Keppra and Dilantin 1000 mg three times daily, Keppra and Dilantin 200 in the morning and 300 at night. EEG done at that time revealed slow left hemisphere rhythm with small sharp discharges with no obvious clinical significance. The patient states that he religiously takes his medications and he did not miss a dose. However because of the pain, he was and pain and sleep-deprived. He thinks that this was what triggered the seizures. It was also reported that he had a grand mal seizure this morning at the hospital. Dilantin level on two occasions were subtherapeutic at 9.5 and 9.7. PAST MEDICAL HISTORY 1. Anxiety 2. Seizures status post head trauma. PAST SURGICAL HISTORY 1. Bladder stimulator 2. Pelvic surgery SOCIAL HISTORY No alcohol. No tobacco. No substance abuse. ALLERGIES No known allergies. MEDICATIONS 1. Ultram 2. Keppra 3. Dilantin REVIEW OF SYSTEMS A 12-point review of system is negative except for what is stated in the HPI. FAMILY HISTORY No family history of seizures. PHYSICAL EXAM GENERAL: Awake, alert, oriented, good historian. HEENT: Atraumatic, normocephalic. Intact hearing. Intact vision. NECK: Soft and supple. Trachea in the midline. CARDIOVASCULAR: Regular rate and rhythm. RESPIRATORY: Clear to auscultation. No wheezes. GASTROINTESTINAL: Soft and nontender. MUSCULOSKELETAL: Dependent edema in bilateral lower extremities, unable to move both lower extremities status post pelvic fracture October 2016. NEUROLOGIC: Awake, alert, and oriented to time, person and place. No dysarthria and no dysphagia. Cranial nerves are intact. No nystagmus. No diplopia. No facial asymmetry. Upper extremities 5/5. Normal cerebellar functions. Flangb-[id number]-[id number] test is intact. Lower extremities, unable to move the right lower extremity/chronic status post pelvic surgery, can wiggle the toes. Left lower extremity grade 2 hip flexion, knee extension and foot flexion /extension. Intact sensation, reflexes 1+ bilateral symmetrical lower extremities. DIAGNOSTIC STUDIES/LABORATORY DATA White blood cell count 7, hemoglobin 12.3, platelet count 245. Sodium 139, potassium 3.4, anion gap 6, BUN 11, creatinine 0.62. UDS negative. Phenytoin initially 9.7, therapeutic and this morning 9.5. DIAGNOSTIC IMPRESSION 1. Breakthrough seizure 2. Seizure disorder status post TBI. 3. Bilateral weakness lower extremity status post pelvic fracture. 4. Subtherapeutic Dilantin level. PLAN 1. Loading dose of Dilantin now 1500 mg. 2. Repeat Dilantin level at 02:00 p.m. 3. Continue Dilantin 200 mg a.m. and 300 mg p.m. 3. Modify Keppra to 1500 mg twice daily. 4. Seizure precautions. 5. DVT prophylaxis. 6. EEG 7. GI prophylaxis. 8. Discontinue Ultram from the medication list, may lower seizure threshold. Thank you for the opportunity to participate in the care of your patient. MD SIDDHARTH Turcios/LUCRETIA /9:17 AM /9:31 AM MAHNAZ
[2016-12-21] MEDS ORDERED: PHENYTOIN INJ 1,500 MG in SODIUM CHLOR 0.9% 250 ML INJ 250 ML IV ONE (10:00)
[2016-12-21] MEDS: levETIRAcetam 500 MG TAB PO SCH ×2 (10:49→21:17)
[2016-12-21] MEDS ORDERED: PHENYTOIN SODIUM 100 MG CAP PO ONE (11:15)
[2016-12-21] MEDS ORDERED: levETIRAcetam 500 MG TAB PO SCH (12:00)
[2016-12-21] MEDS: SODIUM CHLOR 0.9% 1000 ML INJ 1,000 ML IV SCH ×2 (14:44→18:18)
[2016-12-21] MEDS: ACETAMINOPHEN 325 MG TAB PO PRN (22:28)
--- NOTE | 2016-12-21 22:39 | MG ---
cc: ANUP TRACEY MD Sex: M DATE OF 1980 REFERRING PHYSICIAN LIAM Grady MEDICAL HISTORY Seizures, status post remote TBI MEDICATIONS 1. Keppra. 2. Dilantin 3. 1 milligram Ativan earlier before the EEG. DESCRIPTION The posterior background rhythm is 9-10 Hz alpha located posteriorly bilateral and symmetrical with posterior to anterior gradient. During the recording there was transition of the background to theta with occasional sleep spindles. Photic stimulation did not elicit a normal symmetrical driving response. Hyperventilation did not make a change in the background activity of the EEG. The background rhythm is superimposed by excess beta activity. There was no electrographic seizures or epileptiform discharges seen during the recording. There is some movement artifact during the EEG recording. INTERPRETATION This is an awake, drowsy and sleep EEG. Excess beta activity is a nonspecific finding that may be related to medication adverse effects like benzos or barbiturates. Absence of electrographic seizures or epileptiform discharges does not rule out the diagnosis of epilepsy. Clinical correlation is recommended. MD SIDDHARTH Turcios/SADI /10:12 PM /10:16 PM MTDD
[2016-12-22] VITALS (7 sets, daily range): BP systolic 110–123; BP diastolic 63–74; PULSE 74–81; RESP 16–20; TEMP 98–98.7; O2SAT 95–99
[2016-12-22] MEDS: SODIUM CHLOR 0.9% 1000 ML INJ 1,000 ML IV SCH ×2 (01:37→13:31)
[2016-12-22] MEDS: LORazepam 2 MG/ML VIAL IV PUSH PRN (02:52)
[2016-12-22] MEDS: ACETAMINOPHEN 325 MG TAB PO PRN ×3 (03:21→15:53)
--- NOTE | 2016-12-22 08:59 | HHI.PR ---
Subjective Remarks Breakthrough seizures again overnight. Patient says he had a grand mal seizure seemed like yesterday. His phenytoin level is supratherapeutic. We'll hold seizure medications discussed with the patient and with the nurse. Patient says he is not eating much. She feels tired after the seizures. He is awake, alert. Denies nausea, vomiting, diarrhea or constipation. Patient come [place] of dizziness says he feels dizzy every time he changes positions in the bed. Objective Vitals Vital Signs Date Time Temp Pulse Resp B/P (MAP) Pulse Ox O2 Delivery O2 Flow Rate FiO2 12/22/16 08:23 98.5 74 18 115/65 (82) 98 12/22/16 04:50 98.3 81 20 123/74 (90) 98 12/22/16 00:19 98.4 77 20 118/63 (81) 97 12/21/16 21:10 98.1 82 20 111/62 (78) 96 12/21/16 18:56 98.9 79 20 110/65 (80) 97 12/21/16 16:16 98.4 82 20 116/57 (76) 94 12/21/16 15:00 75 12/21/16 12:15 98.6 74 24 115/61 (79) 98 I/O 12/21/16 12/21/16 12/21/16 12/22/16 12/22/16 12/22/16 07:00 15:00 23:00 07:00 15:00 23:00 Intake Total 0 ml 1020 ml Output Total 1600 ml 900 ml 600 ml Balance 0 ml -580 ml -900 ml -600 ml Intake Oral 0 ml IV Total 1020 ml Output Urine Total 1600 ml 900 ml 600 ml # Voids 1 # Bowel Movements 1 Result Diagram: 12/21/16 0442 12/21/16 0442 Imaging Last Impressions Head CT 12/20/16 0000 Signed Impressions: Service Date/Time: Tuesday, December 20, 2016 20:50 - CONCLUSION: Negative noncontrast CT. Dereck Guzman MD Objective Remarks GENERAL: This is a well-nourished, well-developed patient, in no apparent distress. CARDIOVASCULAR: Regular rate and rhythm without murmurs, gallops, or rubs. RESPIRATORY: Clear to auscultation. Breath sounds equal bilaterally. No wheezes , rales, or rhonchi. GASTROINTESTINAL: Abdomen soft, non-tender, nondistended. No guarding. MUSCULOSKELETAL: Dependent edema in bilateral lower extremities. No calf tenderness. NEUROLOGICAL: Awake and alert. Motor and sensory grossly within normal limits.4 out of 5 muscle strength in lower extremities, weaker on right lower. Less sensation in right lower. Normal speech. 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 Seizure, reoccurring, s/p TBI Head CT reviewed and shows no acute abnormalities -Consult neurology, patient known to DR. Gomez -Kenathan and Dilantin given in ED as requested by Dr. Jones neurology. - 12/21 Had breakthrough seizure overnight. Phenytoin level is subtherapeutic. discussed with Dr James neurology, will give dosing load . Ordered EEG - Breakthrough seizures overnight 12/22/16 serotherapeutic dilantin, will hold keppra and dilantin, neurology ff. Will monitor levels. EEG done 12/21 reviewed nonconclusive , no seizure activity seen -Seizure precautions -Ativan prn DVT prophylaxis: SCDs Discussed Condition With Patient, nurse, family at bedside Discharge Planning Discharge when improved and cleared by neurology. Patient is following with work compensation. Case management consulted also for discharge plan. Leila Mckee MD Dec 22, 2016 08:59
[2016-12-22] MEDS: PHENYTOIN SODIUM 100 MG CAP PO SCH ×3 (09:00→22:42)
[2016-12-22] MEDS: levETIRAcetam 500 MG TAB PO SCH ×3 (09:00→22:41)
[2016-12-22] MEDS: SODIUM CHLORIDE 0.9% FLUSH 10 ML FLUSH IV FLUSH SCH ×2 (09:22→21:00)
[2016-12-22] MEDS ORDERED: MECLIZINE HCL 25 MG TAB PO PRN (11:00)
[2016-12-22 12:11] LABS: POTASSIUM 3.7 MEQ/L (3.5-5.1)
[2016-12-22 12:13] LABS: AUTOMATED NEUTROPHIL # 6.5 TH/MM3 (1.8-7.7); BASOPHIL % 0.4 % (0.0-2.0); EOSINOPHIL # 0.1 TH/MM3 (0-0.4); EOSINOPHIL % 0.7 % (0.0-4.0); HEMO FLAGS DIFF FINAL; LYMPH % 14.6 % (9.0-44.0); LYMPHOCYTE # 1.2 TH/MM3 (1.0-4.8); MEAN CELL VOLUME 87.2 FL (80.0-100.0); MEAN CORPUSCULAR HEMOGLOBIN 29.9 PG (27.0-34.0); MEAN CORPUSCULAR HGB CONC 34.3 % (32.0-36.0); MONO % 6.3 % (0.0-8.0); PLATELET COUNT 248 TH/MM3 (150-450); RED BLOOD COUNT 4.36 MIL/MM3 (4.50-5.90); RED CELL DISTRIBUTION WIDTH 12.5 % (11.6-17.2); WHITE BLOOD COUNT 8.3 TH/MM3 (4.0-11.0)
--- NOTE | 2016-12-22 15:45 | HHI.PR ---
Review/Management Diagnosis 1. Breakthrough seizure 2. Seizure disorder status post TBI. 3. Bilateral weakness lower extremity status post pelvic fracture. 4. Supra-therapeutic Dilantin levels Plan - Hold Dilantin today [300mg Q12h] - Follow up Dilantin levels next am - Loading dose of Dilantin now 1500 mg. - Keppra to 1500 mg twice daily. - MRI brain with contrast - Seizure precautions. - DVT prophylaxis. - GI prophylaxis. - Discontinue Ultram from the medication list, may lower seizure threshold. - I discussed the case with RN Diagnosis/Plan: Subjective Subjective Comments Reported seizure at 2:00 am As per RN, not witnessed Dilantin levels are supra therapeutic I stopped by to evaluate patient twice and he was " taking a shower" Active Medications Current Medications Medications (Trade) Dose Ordered Sig/Kasi Route Start Time Stop Time Status Last Admin Sodium Chloride 1,000 ml @ 100 mls/hr Q10H IV 12/20/16 22:18 12/22/16 13:31 (NS Flush) 2 ml UNSCH PRN IV FLUSH 12/20/16 22:30 (NS Flush) 2 ml BID IV FLUSH 12/21/16 09:00 12/22/16 09:22 (Zofran Inj) 4 mg Q6H PRN IVP 12/20/16 22:30 (Narcan Inj) 0.4 mg UNSCH PRN IV PUSH 12/20/16 22:30 (Ativan Inj) 1 mg Q15M PRN IV PUSH 12/20/16 22:30 12/22/16 02:52 (Dilantin) 300 mg BID PO 12/21/16 09:00 12/21/16 21:17 (Keppra) 1,500 mg Q12HR PO 12/21/16 10:00 12/21/16 21:17 (Tylenol) 650 mg Q6HR PRN PO 12/21/16 22:30 12/22/16 09:23 (Antivert) 25 mg Q8H PRN PO 12/22/16 11:00 12/22/16 13:35 Allergies Allergies Coded Allergies No Known Allergies (Unverified11/08/16) Review of Systems All other ROS: ROS reviewed as documented in chart Exam I&O / VS 12/22/16 12/22/16 12/23/16 15:00 23:00 07:00 Intake Total 1112 ml 240 ml Output Total 700 ml Balance 1112 ml -460 ml Intake Oral 240 ml IV Total 1112 ml Output Urine Total 700 ml # Bowel Movements 2 Vital Signs Date Time Temp Pulse Resp B/P (MAP) Pulse Ox O2 Delivery O2 Flow Rate FiO2 12/22/16 12:30 98.0 76 18 114/71 (85) 99 12/22/16 10:25 18 12/22/16 08:23 98.5 74 18 115/65 (82) 98 12/22/16 08:15 81 12/22/16 04:50 98.3 81 20 123/74 (90) 98 12/22/16 00:19 98.4 77 20 118/63 (81) 97 12/21/16 21:10 98.1 82 20 111/62 (78) 96 12/21/16 18:56 98.9 79 20 110/65 (80) 97 12/21/16 16:16 98.4 82 20 116/57 (76) 94 Objective Radiology Results Last [address] 12/20/16 0000 Signed Impressions: Service Date/Time: Tuesday, December 20, 2016 20:50 - CONCLUSION: Negative noncontrast CT. Dereck Guzman MD Micro and Labs Laboratory Tests Test 12/22/16 08:50 White Blood Count 8.3 Red Blood Count 4.36 Hemoglobin 13.0 Hematocrit 38.0 Mean Corpuscular Volume 87.2 Mean Corpuscular Hemoglobin 29.9 Mean Corpuscular Hemoglobin Concent 34.3 Red Cell Distribution Width 12.5 Platelet Count 248 Mean Platelet Volume 8.2 Neutrophils (%) (Auto) 78.0 Lymphocytes (%) (Auto) 14.6 Monocytes (%) (Auto) 6.3 Eosinophils (%) (Auto) 0.7 Basophils (%) (Auto) 0.4 Neutrophils # (Auto) 6.5 Lymphocytes # (Auto) 1.2 Monocytes # (Auto) 0.5 Eosinophils # (Auto) 0.1 Basophils # (Auto) 0.0 CBC Comment DIFF FINAL Differential Comment Blood Urea Nitrogen 7 Creatinine 0.50 Random Glucose 88 Calcium Level 8.9 Sodium Level 138 Potassium Level 3.7 Chloride Level 103 Carbon Dioxide Level 27.0 Anion Gap 8 Estimat Glomerular Filtration Rate 187 Phenytoin (Dilantin) Level 22.4 Phenobarbital Level LESS THAN 2.1 Mark Anthony James MD Dec 22, 2016 15:45
--- NOTE | 2016-12-22 18:47 | RADRPT ---
EXAM DATE/TIME: 12/22/2016 17:46 [facility] COMPARISON: No previous studies available for comparison. INDICATIONS : Left arm swelling. MEDICAL HISTORY : Seizures. Head trauma. Numbness. Pelvic fracture. Kidney stones. SURGICAL HISTORY : Bladder stimulator. ORIF of pubic symphysis. Vasectomy. ENCOUNTER: Initial ACUITY: 1 week PAIN SCORE: 5/10 LOCATION: Left arm. FINDINGS: Occlusive thrombus is noted in the cephalic vein which extends into the forearm. This is noncompressi ble. There is spontaneous flow documented in the brachial, basilic, axillary, and subclavian veins. The vessels are compressible and augmentation response is documented. No filling defects are seen. The flow is phasic with respiration. Direction of flow in the jugular vein is caudal. CONCLUSION: Occlusive thrombus in the cephalic vein. The deep venous system is patent. Dereck Guzman MD on December 22, 2016 at 18:45 Board Certified Radiologist. This report was verified electronically.
[2016-12-23] VITALS (7 sets, daily range): BP systolic 117–126; BP diastolic 63–75; PULSE 61–81; RESP 16–18; TEMP 98–98.5; O2SAT 97–99
[2016-12-23] MEDS: ACETAMINOPHEN 325 MG TAB PO PRN ×3 (00:20→14:19)
[2016-12-23] MEDS: SODIUM CHLOR 0.9% 1000 ML INJ 1,000 ML IV SCH ×2 (03:06→10:18)
[2016-12-23] MEDS: SODIUM CHLORIDE 0.9% FLUSH 10 ML FLUSH IV FLUSH SCH (09:00)
[2016-12-23 10:03] LABS: AUTOMATED NEUTROPHIL # 5.3 TH/MM3 (1.8-7.7); BASOPHIL % 0.5 % (0.0-2.0); EOSINOPHIL # 0.1 TH/MM3 (0-0.4); EOSINOPHIL % 1.5 % (0.0-4.0); HEMATOCRIT 36.1 % (39.0-51.0); HEMO FLAGS DIFF FINAL; LYMPH % 20.6 % (9.0-44.0); LYMPHOCYTE # 1.6 TH/MM3 (1.0-4.8); MEAN CELL VOLUME 86.5 FL (80.0-100.0); MEAN CORPUSCULAR HEMOGLOBIN 29.6 PG (27.0-34.0); MEAN CORPUSCULAR HGB CONC 34.2 % (32.0-36.0); MONO % 6.9 % (0.0-8.0); NEUT % 70.5 % (16.0-70.0); PLATELET COUNT 251 TH/MM3 (150-450); RED BLOOD COUNT 4.18 MIL/MM3 (4.50-5.90); RED CELL DISTRIBUTION WIDTH 12.6 % (11.6-17.2); WHITE BLOOD COUNT 7.5 TH/MM3 (4.0-11.0)
[2016-12-23 11:25] LABS: ANION GAP 8 MEQ/L (5-15); BLOOD UREA NITROGEN 8 MG/DL (7-18); CHLORIDE 105 MEQ/L (98-107); GLOMERULAR FILTRATION RATE 171 ML/MIN (>89); POTASSIUM 3.4 MEQ/L (3.5-5.1); SODIUM (NA) 140 MEQ/L (136-145)
[2016-12-23 11:28] LABS: PHENOBARBITAL LESS THAN 2.1 MCG/ML (15.0-40.0)
[2016-12-23] MEDS ORDERED: DILA100C PO (14:54)
--- NOTE | 2016-12-23 14:58 | HHI.DS ---
Discharge Summary Admission Date Dec 21, 2016 at 12:47 Discharge Date: Dec 23, 2016 Admitting Diagnosis Seizures, Subtherapeutic Dilantin Level (1) Seizure ICD Code: R56.9 - Unspecified convulsions Diagnosis: Principal Procedures None Brief History - From Admission Written by NATASHA Rosenthal acting as scribe for Dr. Palacio] on 12/20/16 at 22:42. 36 y/o male with a history of seizures from a TBI on November 12 after a fall from a ladder presented to the ED with complaints of seizures. He states he woke up at 3am with hip pain and he took a pain pill and laid down on the couch. Last thing he remembers is seeing white spots and he woke up with urine on himself. Denies any chest pain, sob, fever or chills. He called his neurologist Dr. Gomez and he recommended coming to the ED. While patient was in the CT scan he suffered another seizure. He states he has had a loss of appetite and has not been eating well. CBC/BMP: 12/23/16 0847 12/23/16 0847 Significant Findings Laboratory Tests Test 12/20/16 21:19 12/20/16 21:57 12/21/16 04:42 12/21/16 14:48 Neutrophils (%) (Auto) 70.2 % (16.0-70.0) Total Protein 8.3 GM/DL (6.4-8.2) Alkaline Phosphatase 163 U/L (45-117) 137 U/L (45-117) Phenytoin (Dilantin) Level 9.7 MCG/ML (10.0-20.0) 9.5 MCG/ML (10.0-20.0) 26.7 MCG/ML (10.0-20.0) Red Blood Count 4.12 MIL/MM3 (4.50-5.90) Hemoglobin 12.3 GM/DL (13.0-17.0) Hematocrit 35.4 % (39.0-51.0) Potassium Level 3.4 MEQ/L (3.5-5.1) Test 12/22/16 08:50 12/23/16 08:47 Red Blood Count 4.36 MIL/MM3 (4.50-5.90) 4.18 MIL/MM3 (4.50-5.90) Hematocrit 38.0 % (39.0-51.0) 36.1 % (39.0-51.0) Neutrophils (%) (Auto) 78.0 % (16.0-70.0) 70.5 % (16.0-70.0) Creatinine 0.50 MG/DL (0.60-1.30) 0.54 MG/DL (0.60-1.30) Phenytoin (Dilantin) Level 22.4 MCG/ML (10.0-20.0) Phenobarbital Level LESS THAN 2.1 MCG/ML LESS THAN 2.1 MCG/ML Hemoglobin 12.4 GM/DL (13.0-17.0) Calcium Level 8.4 MG/DL (8.5-10.1) Potassium Level 3.4 MEQ/L (3.5-5.1) Imaging Last Impressions Upper Extremity Ultrasound 12/22/16 0000 Signed Impressions: Service Date/Time: Thursday, December 22, 2016 17:46 - CONCLUSION: Occlusive thrombus in the cephalic vein. The deep venous system is patent. Dereck Guzman MD Head CT 12/20/16 0000 Signed Impressions: Service Date/Time: Tuesday, December 20, 2016 20:50 - CONCLUSION: Negative noncontrast CT. Dereck Guzman MD PE at Discharge GENERAL: This is a well-nourished, well-developed patient, in no apparent distress. CARDIOVASCULAR: Regular rate and rhythm without murmurs, gallops, or rubs. RESPIRATORY: Clear to auscultation. Breath sounds equal bilaterally. No wheezes , rales, or rhonchi. GASTROINTESTINAL: Abdomen soft, non-tender, nondistended. No guarding. MUSCULOSKELETAL: Dependent edema in bilateral lower extremities. No calf tenderness. NEUROLOGICAL: Awake and alert. Motor and sensory grossly within normal limits.4 out of 5 muscle strength in lower extremities, weaker on right lower. Less sensation in right lower. Normal speech. Pt update on day of discharge No seizures, patient refused MRI because of presence of bladder pacemaker. Discussed with neurology, neurology agreed. Rosamaria for discharge today. Patient denies any headache. Dilantin is therapeutic. 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 CT scan of the head unremarkable. Neurology was consulted. Patient was initially given Keppra and Dilantin. Patient had breakthrough seizure despite that. Anti- seizure medications were titrated. Loading dose given, Dilantin dose was adjusted. EEG done 12/21 reviewed nonconclusive , no seizure activity seen. Patient also had mild left forearm swelling, ultrasound showed cephalic vein occlusive thrombus. This is not a deep vein thrombosis. Continue warm compress. Per neuurology, rosamaria for discharge today. Follow-up with primary care physician and urology as outpatient. Discharged on Dilantin 300 mg twice a day and Keppra 1500 mg twice a day with repeat Dilantin levels in one week. Pt Condition on Discharge: Good Discharge Disposition: Discharge Home Discharge Time: > 30 minutes Discharge Instructions DIET: Follow Instructions for: Heart Healthy Diet Activities you can perform: Regular-No Restrictions Follow up Referrals: PCP Follow-up - 1 Week New Orders: DILANTIN (FREE) - 1 Week New Medications: Levetiracetam (Keppra) 500 Mg Tab 1500 MG PO Q12HR for Seizure Control for 60 Days, #60 TAB Phenytoin Extended (Dilantin) 100 Mg Cap 300 MG PO BID for seizures, #60 CAP Discontinued Medications: Levetiracetam (Keppra) 500 Mg Tab 1000 MG PO TID for Seizure Control for 30 Days, TAB 1 Refill Phenytoin Extended (Dilantin) 100 Mg Cap 200 MG PO DAILY for Seizure Control for 30 Days, CAP 1 Refill Phenytoin Extended (Dilantin) 100 Mg Cap 300 MG PO HS for Seizure Control for 30 Days, CAP 1 Refill Tramadol (Ultram) 50 Mg Tab 50 MG PO Q8H PRN for PAIN SCALE 4 TO 10 for 30 Days, #90 TAB 0 Refills Griffin Lozoya MD Dec 23, 2016 14:58
[2016-12-23] MEDS ORDERED: LEVE500 PO (14:59)
== END 2016-12-23 16:11 | disposition home or self-care (01) | DRG 101 ==
LOC: NEPE 17:52 → NEDA 22:18 → NEPGCP 23:34 → OBSVTOIN 12-21 12:47 → N05B 12-21 18:24
PROVIDERS: ADMIT Hospitalist; ATTEND Hospitalist
DX: G40.409 Other generalized epilepsy and epileptic syndromes, not intractable, without status epilepticus (principal); I82.619 Acute embolism and thrombosis of superficial veins of unspecified upper extremity; R63.0 Anorexia; Z87.820 Personal history of traumatic brain injury; Z72.820 Sleep deprivation; F41.9 Anxiety disorder, unspecified; Z87.828 Personal history of other (healed) physical injury and trauma; S32.9XXD Fracture of unspecified parts of lumbosacral spine and pelvis, subsequent encounter for fracture with routine healing; W11.XXXD Fall on and from ladder, subsequent encounter
CPT/HCPCS: 70450; 80048; 80053; 80184; 80185; 80307; 85025; 93971; 94150; 95819; J1165; J1953; J2060; J7030; J7050

== ENCOUNTER 2017-01-31 06:53 | Day surgery (SDC) | payer OTHER ==
[~2017-01-31] VITALS: Ht 189.2 cm; Wt 84.5 kg
[~2017-01-31 06:53] MED LIST changes: -ACET1TAB86 PO; -FAMO20TA2 PO; -HYDR-3580 PO; -ULTR50TA5 PO; -XARE10TA PO
[2017-01-31 07:19] VITALS: BP 111/70; PULSE 75; RESP 20; TEMP 98.4; O2SAT 94
[2017-01-31] MEDS ORDERED: LACTATED RINGER'S 1000 ML INJ 1,000 ML IV SCH (07:45)
[2017-01-31] MEDS ORDERED: DIAZEPAM 5 MG TAB PO SCH (07:45)
[2017-01-31 07:47] LABS: AUTOMATED NEUTROPHIL # 2.6 TH/MM3 (1.8-7.7); BASOPHIL % 0.8 % (0.0-2.0); EOSINOPHIL # 0.1 TH/MM3 (0-0.4); EOSINOPHIL % 1.6 % (0.0-4.0); HEMATOCRIT 38.7 % (39.0-51.0); HEMO FLAGS DIFF FINAL; LYMPH % 29.3 % (9.0-44.0); LYMPHOCYTE # 1.3 TH/MM3 (1.0-4.8); MEAN CELL VOLUME 85.9 FL (80.0-100.0); MEAN CORPUSCULAR HEMOGLOBIN 29.9 PG (27.0-34.0); MEAN CORPUSCULAR HGB CONC 34.9 % (32.0-36.0); MONO % 8.6 % (0.0-8.0); NEUT % 59.7 % (16.0-70.0); PLATELET COUNT 273 TH/MM3 (150-450); RED BLOOD COUNT 4.51 MIL/MM3 (4.50-5.90); RED CELL DISTRIBUTION WIDTH 12.6 % (11.6-17.2); WHITE BLOOD COUNT 4.4 TH/MM3 (4.0-11.0)
[2017-01-31 08:00] LABS: INTERNATIONAL NORMALIZED RATIO 1.2 RATIO; PROTHROMBIN TIME - PATIENT 11.7 SEC (9.8-11.6)
[2017-01-31 08:03] LABS: BICARBONATE 29.9 MEQ/L (21.0-32.0); POTASSIUM 3.7 MEQ/L (3.5-5.1)
[2017-01-31 09:15] VITALS: BP 106/66; PULSE 76; RESP 18; TEMP 98; O2SAT 97
[2017-01-31] MEDS ORDERED: ACETAMINOPHEN 325 MG TAB PO PRN (10:15)
--- NOTE | 2017-01-31 10:16 | PD.RAD ---
Post Procedure Progress Note Pre Procedure Diagnosis: (1) Seizure (2) Impaired mobility and activities of daily living Post Procedure Diagnosis: (1) Seizure (2) Impaired mobility and activities of daily living Procedure Date: Jan 31, 2017 Supervising Radiologist: Michael Mcelroy Anesthesia: Local Plan of Activity Patient to Unit: [facility] Patient Condition: Good Additional Comments: LP completed CT pending Full dictated report to follow. See PACS Report for procedural detail/treatment Michael Mcelroy MD Jan 31, 2017 10:16
--- NOTE | 2017-01-31 12:29 | RADRPT ---
EXAM DATE/TIME: 01/31/2017 10:47 [facility] COMPARISON: CT THORAX W CONTRAST, November 08, 2016, 15:11. CT CERVICAL SPINE W/O CONTRAST, November 08, 2016, 15:03. INDICATIONS : Post myelo, spinal stenosis RADIATION DOSE: 29.34 CTDIvol (mGy) CT of thecervical spine was performed post myelogram. MEDICAL HISTORY : Seizures. SURGICAL HISTORY : None. ENCOUNTER: Initial ACUITY: 1 day PAIN SCALE: 5/10 LOCATION: neck TECHNIQUE: Volumetric scanning of the cervical spine was performed. Multiplanar reconstructions in the sagittal, coronal and oblique axial planes were performed. Using automated exposure control and adjustment o f the mA and/or kV according to patient size, radiation dose was kept as low as reasonably achievable to obtain optimal diagnostic quality images. DICOM format image data is available electronically f or review and comparison. FINDINGS: VERTEBRAE: Normal vertebral body height. ALIGNMENT: No evidence of subluxation. C2-C3: The bony spinal canal is normal in size. No evidence of disc bulge or herniation. The neural forami na are bilaterally patent. C3-C4: The bony spinal canal is normal in size. No evidence of disc bulge or herniation. The neural forami na are bilaterally patent. C4-C5: The bony spinal canal is normal in size. No evidence of disc bulge or herniation. The neural forami na are bilaterally patent. C5-C6: The bony spinal canal is normal in size. No evidence of disc bulge or herniation. The neural forami na are bilaterally patent. C6-C7: The bony spinal canal is normal in size. No evidence of disc bulge or herniation. The neural forami na are bilaterally patent. C7-T1: The bony spinal canal is normal in size. No evidence of disc bulge or herniation. The neural forami na are bilaterally patent. CONCLUSION: Negative exam. Spinal canal and neural foramina are patent throughout. No significant degenerati ve changes. Jason Phillips MD on January 31, 2017 at 12:25 Board Certified Radiologist. This report was verified electronically.
--- NOTE | 2017-01-31 12:32 | RADRPT ---
EXAM DATE/TIME: 01/31/2017 10:52 [facility] COMPARISON: CT CERVICAL SPINE W/O CONTRAST, January 31, 2017, 10:47. CT THORACIC SPINE W/O CONTRAST, November 08, 2016, 15:11. INDICATIONS : Post myelo, spinal stenosis RADIATION DOSE: 12.89 CTDIvol (mGy) ; Combined studies - Thoracic Spine/Lumbar Spine CT of thethoracic spine was performed post myelogram. MEDICAL HISTORY : Seizures. SURGICAL HISTORY : None. ENCOUNTER: Initial ACUITY: 1 day PAIN SCALE: 5/10 LOCATION: upper back TECHNIQUE: Volumetric scanning of the thoracic spine was performed. Multiplanar reconstructions in the sagittal , coronal and oblique axial planes were performed. Using automated exposure control and adjustment o f the mA and/or kV according to patient size, radiation dose was kept as low as reasonably achievable to obtain optimal diagnostic quality images. DICOM format image data is available electronically f or review and comparison. FINDINGS: The vertebral bodies of the thoracic spine are in normal alignment without evidence of subluxation. Vertebral body height is maintained. No fractures are seen. Minimal marginal spurs are seen in the m id and dorsal lower levels directed anteriorly. T1-T2: Normal. T2-T3: The thecal sac has a normal diameter. No evidence of disc bulge or protrusion. T3-T4: The thecal sac has a normal diameter. No evidence of disc bulge or protrusion. T4-T5: The thecal sac has a normal diameter. No evidence of disc bulge or protrusion. T5-T6: The thecal sac has a normal diameter. No evidence of disc bulge or protrusion. T6-T7: The thecal sac has a normal diameter. No evidence of disc bulge or protrusion. T7-T8: The thecal sac has a normal diameter. No evidence of disc bulge or protrusion. T8-T9: The thecal sac has a normal diameter. No evidence of disc bulge or protrusion. T9-T10: The thecal sac has a normal diameter. No evidence of disc bulge or protrusion. T10-T11: The thecal sac has a normal diameter. No evidence of disc bulge or protrusion. T11-T12: The thecal sac has a normal diameter. No evidence of disc bulge or protrusion. T12-L1: The thecal sac has a normal diameter. No evidence of disc bulge or protrusion. CONCLUSION: 1. Minimal, early degenerative disc disease with small marginal spurs in the mid and lower dorsal lev els directed anteriorly. 2. Otherwise, spinal canal is widely patent throughout without cord compromise. Jason Phillips MD on January 31, 2017 at 12:28 Board Certified Radiologist. This report was verified electronically.
--- NOTE | 2017-01-31 12:35 | RADRPT ---
EXAM DATE/TIME: 01/31/2017 10:52 [facility] COMPARISON: CT LUMBAR SPINE W/O CONTRAST, November 08, 2016, 15:11. INDICATIONS : Post myelogram, spinal stenosis RADIATION DOSE: 12.89 CTDIvol (mGy) ; Combined studies - Thoracic Spine/Lumbar Spine CT of thelumbar spine was performed post myelogram. MEDICAL HISTORY : Seizures. SURGICAL HISTORY : None. ENCOUNTER: Initial ACUITY: 1 day PAIN SCALE: 5/10 LOCATION: lower back TECHNIQUE: Volumetric scanning of the lumbar spine was performed. Multiplanar reconstructions in the sagittal, coronal and oblique axial planes were performed. Using automated exposure control and adjustment of the mA and/or kV according to patient size, radiation dose was kept as low as reasonably achievable t o obtain optimal diagnostic quality images. DICOM format image data is available electronically for review and comparison. FINDINGS: VERTEBRAE: Normal vertebral body height. ALIGNMENT: No evidence of subluxation. T12-L1: The thecal sac has a normal diameter. No evidence of disc bulge or protrusion. The neural foramina are patent bilaterally. L1-L2: The thecal sac has a normal diameter. No evidence of disc bulge or protrusion. The neural foramina are patent bilaterally. L2-L3: The thecal sac has a normal diameter. No evidence of disc bulge or protrusion. The neural foramina are patent bilaterally. L3-L4: The thecal sac has a normal diameter. No evidence of disc bulge or protrusion. The neural foramina are patent bilaterally. L4-L5: The thecal sac has a normal diameter. No evidence of disc bulge or protrusion. The neural foramina are patent bilaterally. L5-S1: The thecal sac has a normal diameter. No evidence of disc bulge or protrusion. The neural foramina are patent bilaterally. CONCLUSION: Negative exam. Spinal canal and neural foramina are widely patent throughout without nerve root compromise Jason Phillips MD on January 31, 2017 at 12:31 Board Certified Radiologist. This report was verified electronically.
--- NOTE | 2017-01-31 16:12 | RADRPT ---
EXAM DATE/TIME: 01/31/2017 08:32 [facility] COMPARISON: CT ABDOMEN & PELVIS W CONTRAST, November 08, 2016, 15:11. CT CERVICAL SPINE W/O CONTRAST, January 31, 2017, 10:47. CT LUMBAR SPINE W/O CONTRAST, January 31, 2017, 10:52. CT THORACIC SPINE W/O CONT RAST, January 31, 2017, 10:52. A INDICATIONS : Paitient wigh history of fall from ladder in Oct 2016. Seizures and leg weakness. MEDICAL HISTORY : 1. Seizures 2. fx pelvis SURGICAL HISTORY : 1. Bladder stimulator 2. Pelvic surgery ENCOUNTER: Initial ACUITY: 3 months PAIN SCORE: 0/10 LUMBAR PUNCTURE TIME: 0904 hours FLUORO TIME: 2.6 minutes IMAGE SERIES: 0 CONTRAST: 20 cc Omnipaque (iohexol) 300 ACCESS LEVEL: L3-4 minutes PROCEDURE : 1. Fluoroscopic guided lumbar puncture. 2. Instillation of intrathecal contrast. 3. Total spinal axis myelogram. The risks, benefits and alternatives to the procedure were explained and verbal and written consent w as obtained. The site was prepped in sterile fashion. Full sterile technique was used, including ca p, mask, sterile gloves and gown and a large sterile sheet. Hand hygiene and 2% chlorhexidine and/or betadine/alcohol prep was utilized per protocol for cutaneous antisepsis. The skin and subcutaneous tissues were infiltrated with local anesthetic solution. With fluoroscopic guidance the lumbar thecal sac was punctured at level above and a diagnostic quanti ty of contrast is present in the subarachnoid space. Following the lumbar radiographs contrast was r un cephalad and radiographs were obtained of the thoracic spine. Under fluoroscopic guidance contras t was placed in the cervical region and radiographs were obtained of the cervical region. The patient tolerated procedure well and there were no complications. CT scan is to be performed for further evaluation. CONCLUSION: Uncomplicated total axis myelogram as above. CT scan is to be performed for further evaluation. Michael Mcelroy MD on January 31, 2017 at 16:09 Board Certified Radiologist. This report was verified electronically.
[2017-02-03] MEDS ORDERED: HYDR-3580 PO (08:03)
== END 2017-01-31 13:00 | disposition home or self-care (01) ==
LOC: HROP 06:53 → HRIP 06:56 → HROP 13:00
PROVIDERS: ATTEND Specialist
DX: R56.9 Unspecified convulsions (principal); R26.9 Unspecified abnormalities of gait and mobility; Z51.81 Encounter for therapeutic drug level monitoring
CPT/HCPCS: 62305; 72125; 72128; 72131; 80048; 85025; 85610; 85730; J7120

== ENCOUNTER → 2017-02-03 | Day surgery (SDC) | payer OTHER ==
[~2017-02-03] VITALS: Ht 189.2 cm; Wt 84.0 kg
[~2017-02-03] MED LIST changes: +CHLORHEXIDINE GLUCONATE 2 % 1 PACK (2 CLOTHS) TOPICAL PRN; +HYDR-3580 PO; +LACTATED RINGER'S 1000 ML IV PRN; +METOPROLOL TARTRATE 25 MG TAB PO PRN; +POVIDONE IODINE 5% (ANTISEPSIS KIT) 4 APPLICATIONS EACH NARE PRN; +SODIUM CHLORID 0.9% 500 ML IV PRN
[2017-02-03 11:17] VITALS: BP 109/70; PULSE 76; RESP 20; TEMP 98.1; O2SAT 100
== END | disposition home or self-care (01) ==
LOC: HSDC 07:00
PROVIDERS: ATTEND Radiology Body Imaging
DX: R51 Headache (principal); R56.9 Unspecified convulsions; R26.9 Unspecified abnormalities of gait and mobility
CPT/HCPCS: 62273